=== PATIENT | female | born 1935 | race Caucasian/White ===

== ENCOUNTER 2023-01-01 08:33 | Outpatient (REF) | payer OTHER, SELFPAY ==
[2023-01-01 09:06] LABS: INR 1.21 (0.91-1.10)
== END 2023-01-01 08:34 | disposition home or self-care (01) ==
LOC: NPINS 08:33
PROVIDERS: PCP Nurse Practitioner Gerontology; Visit Provider Nurse Practitioner Gerontology
DX: I48.91 Unspecified atrial fibrillation (principal); Z86.73 Personal history of transient ischemic attack (TIA), and cerebral infarction without residual deficits
CPT/HCPCS: 85610

== ENCOUNTER 2023-01-08 12:33 | Outpatient (RCR) | payer MEDICARE, SELFPAY ==
[2023-01-08 13:09] LABS: INR 1.07 (0.91-1.10); Prothrombin Time 14.5 Seconds
[2023-01-10 15:40] LABS: INR 1.22 (0.91-1.10); Prothrombin Time 16.1 Seconds
[2023-01-15 11:22] LABS: INR 2.26 (0.91-1.10); Prothrombin Time 26.1 Seconds
[2023-01-17 09:27] LABS: INR 2.45 (0.91-1.10); Prothrombin Time 27.8 Seconds
[2023-01-22 14:43] LABS: INR 2.14 (0.91-1.10)
[2023-01-29 11:14] LABS: Basophils Absolute Auto 0.02 K/uL (0.00-0.30); Basophils Percent Auto 0.3 % (0.0-3.0); Eosinophils Absolute Auto 0.09 K/uL (0.00-0.50); Eosinophils Percent Auto 1.4 % (0.0-7.0); Hematocrit 36.3 % (33.0-51.0); Immature Granulocytes Abs Auto 0.03 K/uL (0.00-0.30); Immature Granulocytes Pct Auto 0.5 %; Lymphocytes Percent Auto 5.8 % (20-44); Mean Corpuscular HGB Conc 33 gm/dL (32-36); Mean Corpuscular Hemoglobin 32 pg (26-34); Mean Corpuscular Volume 96 fL (80-100); Monocytes Percent Auto 3.2 % (0.0-11.0); Neutrophils Percent Auto 88.8 % (42.0-72.0); Platelet Count* 229 K/uL (140-440); RDW Coefficient of Variation % 12.8 % (11.5-15.5); Red Blood Count 3.79 m/uL (4.00-5.20); White Blood Count* 6.25 K/uL (4.50-11.00)
[2023-01-29 11:28] LABS: Chloride* 101 mmol/L (96-114); Potassium* 4.2 mmol/L (3.6-5.1); Sodium* 136 mmol/L (135-149)
[2023-01-29 11:30] LABS: Anion Gap 8 mEq/L (7-15); Carbon Dioxide* 27 mmol/L (20-32); Estimated Glomerular Filt Rate 55 ml/min
[2023-01-29 11:31] LABS: Blood Urea Nitrogen* 21 mg/dL (7-30); Glucose* 343 mg/dL (60-115); Slide Review Reflex No
[2023-01-29 11:43] LABS: Hemoglobin A1C* 9.07 % (0-5.6)
[2023-01-29 11:48] LABS: INR 1.49 (0.91-1.10); Prothrombin Time 18.9 Seconds
[2023-02-05 09:43] LABS: INR 1.25 (0.91-1.10); Prothrombin Time 16.4 Seconds
[2023-02-05 10:26] LABS: HIV 1/2/P24 Combo Screen* Negative (Negative)
[2023-02-12 11:57] LABS: Basophils Absolute Auto 0.02 K/uL (0.00-0.30); Basophils Percent Auto 0.4 % (0.0-3.0); Eosinophils Absolute Auto 0.05 K/uL (0.00-0.50); Hematocrit 39.2 % (33.0-51.0); Hemoglobin* 12.9 gm/dL (12.0-16.0); Immature Granulocytes Abs Auto 0.02 K/uL (0.00-0.30); Immature Granulocytes Pct Auto 0.4 %; Lymphocytes Percent Auto 9.7 % (20-44); Mean Corpuscular HGB Conc 33 gm/dL (32-36); Mean Corpuscular Hemoglobin 32 pg (26-34); Mean Corpuscular Volume 98 fL (80-100); Monocytes Percent Auto 3.9 % (0.0-11.0); Neutrophils Percent Auto 84.6 % (42.0-72.0); Platelet Count* 192 K/uL (140-440); RDW Coefficient of Variation % 13.6 % (11.5-15.5); Red Blood Count 4.02 m/uL (4.00-5.20); Slide Review Reflex No; White Blood Count* 5.15 K/uL (4.50-11.00)
[2023-02-12 12:17] LABS: Albumin* 3.5 g/dL (3.3-5.0); Chloride* 104 mmol/L (96-114); Potassium* 4.2 mmol/L (3.6-5.1); Sodium* 138 mmol/L (135-149)
[2023-02-12 12:18] LABS: INR 1.35 (0.91-1.10); Prothrombin Time 17.5 Seconds
[2023-02-12 12:19] LABS: Creatinine* 1.1 mg/dL (0.5-1.5); Estimated Glomerular Filt Rate 49 ml/min
[2023-02-12 12:20] LABS: Alanine Aminotransferase* 32 U/L (4-35); Alkaline Phosphatase* 99 U/L (40-150); Anion Gap 8 mEq/L (7-15); Aspartate Amino Transferase* 33 U/L (12-35); Bilirubin Direct* 0.2 mg/dL (0.0-0.5); Bilirubin Total* 0.8 mg/dL (0.1-1.5); Blood Urea Nitrogen* 16 mg/dL (7-30); Carbon Dioxide* 26 mmol/L (20-32); Glucose* 242 mg/dL (60-115); Total Protein* 6.5 g/dL (6.0-8.3)
[2023-02-12 12:21] LABS: Calcium* 9.5 mg/dL (8.4-10.6)
[2023-02-19 11:41] LABS: Prothrombin Time 20.9 Seconds
[2023-02-26 10:55] LABS: INR 1.54 (0.91-1.10); Prothrombin Time 19.3 Seconds
[2023-02-26 11:57] LABS: Hepatitis B Surface Antibody* Negative (Negative)
[2023-03-05 09:27] LABS: INR 2.01 (0.91-1.10); Prothrombin Time 23.9 Seconds
== END 2024-01-02 16:07 | disposition home or self-care (01) ==
LOC: LAB 12:33
PROVIDERS: PCP Nurse Practitioner Gerontology; Visit Provider Nurse Practitioner Gerontology
DX: C34.12 Malignant neoplasm of upper lobe, left bronchus or lung (principal); E11.22 Type 2 diabetes mellitus with diabetic chronic kidney disease; I48.91 Unspecified atrial fibrillation; Z86.73 Personal history of transient ischemic attack (TIA), and cerebral infarction without residual deficits; Z11.4 Encounter for screening for human immunodeficiency virus [HIV]
CPT/HCPCS: 36415; 80048; 80076; 83036; 85025; 85610; 86703; 86706

== ENCOUNTER 2023-03-19 10:45 | Outpatient (REF) | payer MEDICARE, SELFPAY ==
[2023-03-19 11:25] LABS: Basophils Absolute Auto 0.02 K/uL (0.00-0.30); Basophils Percent Auto 0.4 % (0.0-3.0); Eosinophils Absolute Auto 0.14 K/uL (0.00-0.50); Eosinophils Percent Auto 2.6 % (0.0-7.0); Hemoglobin* 12.6 gm/dL (12.0-16.0); Immature Granulocytes Abs Auto 0.02 K/uL (0.00-0.30); Immature Granulocytes Pct Auto 0.4 %; Lymphocytes Percent Auto 10.2 % (20-44); Mean Corpuscular HGB Conc 33 gm/dL (32-36); Mean Corpuscular Hemoglobin 33 pg (26-34); Mean Corpuscular Volume 98 fL (80-100); Monocytes Percent Auto 3.9 % (0.0-11.0); Neutrophils Percent Auto 82.5 % (42.0-72.0); Platelet Count* 150 K/uL (140-440); RDW Coefficient of Variation % 13.5 % (11.5-15.5); Red Blood Count 3.87 m/uL (4.00-5.20); White Blood Count* 5.38 K/uL (4.50-11.00)
[2023-03-19 11:29] LABS: Slide Review Reflex No
[2023-03-19 11:49] LABS: Albumin* 3.2 g/dL (3.3-5.0); Chloride* 102 mmol/L (96-114)
[2023-03-19 11:50] LABS: Potassium* 3.2 mmol/L (3.6-5.1); Sodium* 138 mmol/L (135-149)
[2023-03-19 11:52] LABS: Anion Gap 9 mEq/L (7-15); Bilirubin Total* 0.7 mg/dL (0.1-1.5); Carbon Dioxide* 27 mmol/L (20-32); Creatinine* 0.9 mg/dL (0.5-1.5); Estimated Glomerular Filt Rate 63 ml/min; Total Protein* 5.7 g/dL (6.0-8.3)
[2023-03-19 11:53] LABS: Alanine Aminotransferase* 19 U/L (4-35); Alkaline Phosphatase* 102 U/L (40-150); Aspartate Amino Transferase* 47 U/L (12-35); Blood Urea Nitrogen* 14 mg/dL (7-30); Calcium* 8.5 mg/dL (8.4-10.6); Glucose* 237 mg/dL (60-115)
== END 2023-03-19 10:46 | disposition home or self-care (01) ==
LOC: NPINS 10:45
PROVIDERS: PCP Nurse Practitioner Gerontology; Visit Provider Internal Medicine Hematology & Oncology
DX: C34.12 Malignant neoplasm of upper lobe, left bronchus or lung (principal)
CPT/HCPCS: 80048; 80076; 85025

== ENCOUNTER 2023-05-21 09:02 | Outpatient (REF) | payer MEDICARE, SELFPAY ==
[2023-05-21 09:24] LABS: Basophils Absolute Auto 0.02 K/uL (0.00-0.30); Basophils Percent Auto 0.4 % (0.0-3.0); Eosinophils Absolute Auto 0.13 K/uL (0.00-0.50); Eosinophils Percent Auto 2.7 % (0.0-7.0); Hematocrit 38.9 % (33.0-51.0); Hemoglobin* 12.8 gm/dL (12.0-16.0); Lymphocytes Percent Auto 13.1 % (20-44); Mean Corpuscular HGB Conc 33 gm/dL (32-36); Mean Corpuscular Hemoglobin 33 pg (26-34); Mean Corpuscular Volume 101 fL (80-100); Monocytes Percent Auto 5.8 % (0.0-11.0); Platelet Count* 158 K/uL (140-440); RDW Coefficient of Variation % 13.2 % (11.5-15.5); Red Blood Count 3.87 m/uL (4.00-5.20); White Blood Count* 4.81 K/uL (4.50-11.00)
[2023-05-21 09:29] LABS: Slide Review Reflex No
[2023-05-21 09:32] LABS: Chloride* 106 mmol/L (96-114); Potassium* 3.5 mmol/L (3.6-5.1); Sodium* 139 mmol/L (135-149)
[2023-05-21 09:34] LABS: Amylase* 47 U/L (18-89)
[2023-05-21 09:35] LABS: Alkaline Phosphatase* 100 U/L (40-150); Anion Gap 5 mEq/L (7-15); Aspartate Amino Transferase* 17 U/L (12-35); Bilirubin Direct* 0.1 mg/dL (0.0-0.5); Bilirubin Total* 0.4 mg/dL (0.1-1.5); Blood Urea Nitrogen* 13 mg/dL (7-30); Calcium* 8.5 mg/dL (8.4-10.6); Carbon Dioxide* 28 mmol/L (20-32); Estimated Glomerular Filt Rate 55 ml/min; Glucose* 123 mg/dL (60-115); Lipase* 85 U/L (23-300); Total Protein* 5.5 g/dL (6.0-8.3)
[2023-05-21 09:36] LABS: Alanine Aminotransferase* 14 U/L (4-35)
== END 2023-05-21 09:03 | disposition home or self-care (01) ==
LOC: NPINS 09:02
PROVIDERS: PCP Nurse Practitioner Gerontology; Visit Provider Nurse Practitioner Family
DX: C34.12 Malignant neoplasm of upper lobe, left bronchus or lung (principal)
CPT/HCPCS: 80048; 80076; 82150; 83690; 85025

== ENCOUNTER 2023-06-21 14:52 | Outpatient (REF) | payer MEDICARE, SELFPAY ==
[2023-06-21 15:08] LABS: Basophils Absolute Auto 0.01 K/uL (0.00-0.30); Basophils Percent Auto 0.1 % (0.0-3.0); Eosinophils Absolute Auto 0.13 K/uL (0.00-0.50); Eosinophils Percent Auto 1.8 % (0.0-7.0); Hematocrit 41.2 % (33.0-51.0); Hemoglobin* 13.5 gm/dL (12.0-16.0); Immature Granulocytes Abs Auto 0.01 K/uL (0.00-0.30); Immature Granulocytes Pct Auto 0.1 %; Lymphocytes Percent Auto 8.7 % (20-44); Mean Corpuscular HGB Conc 33 gm/dL (32-36); Mean Corpuscular Hemoglobin 33 pg (26-34); Mean Corpuscular Volume 101 fL (80-100); Monocytes Percent Auto 3.8 % (0.0-11.0); Neutrophils Percent Auto 85.5 % (42.0-72.0); Platelet Count* 210 K/uL (140-440); RDW Coefficient of Variation % 12.7 % (11.5-15.5); White Blood Count* 7.34 K/uL (4.50-11.00)
[2023-06-21 15:21] LABS: Slide Review Reflex No
[2023-06-21 17:15] LABS: Chloride* 105 mmol/L (96-114)
[2023-06-21 17:16] LABS: Potassium* 3.4 mmol/L (3.6-5.1); Sodium* 139 mmol/L (135-149)
[2023-06-21 17:18] LABS: Alkaline Phosphatase* 133 U/L (40-150); Amylase* 57 U/L (18-89); Anion Gap 6 mEq/L (7-15); Aspartate Amino Transferase* 21 U/L (12-35); Bilirubin Direct* 0.2 mg/dL (0.0-0.5); Bilirubin Total* 0.5 mg/dL (0.1-1.5); Blood Urea Nitrogen* 14 mg/dL (7-30); Carbon Dioxide* 28 mmol/L (20-32); Creatinine* 1.1 mg/dL (0.5-1.5); Estimated Glomerular Filt Rate 49 ml/min; Glucose* 137 mg/dL (60-115); Total Protein* 5.6 g/dL (6.0-8.3)
[2023-06-21 17:19] LABS: Alanine Aminotransferase* 13 U/L (4-35); Calcium* 8.4 mg/dL (8.4-10.6); Lipase* 183 U/L (23-300)
== END 2023-06-21 14:53 | disposition home or self-care (01) ==
LOC: NPINS 14:52
PROVIDERS: Visit Provider Nurse Practitioner Family
DX: C34.12 Malignant neoplasm of upper lobe, left bronchus or lung (principal)
CPT/HCPCS: 80048; 80076; 82150; 83690; 85025

== ENCOUNTER 2023-07-09 15:27 | Inpatient (IN) | payer MEDICARE, SELFPAY ==
[2023-07-09] VITALS (33 sets, daily range): BP systolic 50–123; BP diastolic 38–84; PULSE 85–105; RESP 20; TEMP 36.4–36.6; O2SAT 80–94; BMI 30.1; BMI 33.3
--- NOTE | 2023-07-09 15:46 | ED_ITS ---
HPI - Chest Pain General Time Seen by Provider: 15:46 Date Seen: 07/09/23 Chief Complaint: Chest Pain Stated Complaint: Possible heart attack Time Seen by Provider: 07/09/23 15:46 Source: patient, family, RN notes reviewed and old records reviewed Mode of arrival: ambulatory Limitations: no limitations History of Present Illness HPI narrative: Paulette is an 87-year-old female with history of lung cancer currently a patient [facility], history of pleural effusion according to her son who is brought to the [place] [facility] with chest pain and vomiting. Pauletet was picked up by her son for an eye appointment earlier this morning. When [facility] it was noted that her blood pressure was only 80 systolic. They were advised to follow up but coming back from the [facility] Paulette began experiencing chest pain. This was nonradiating but associated with nausea and vomiting. She has not had any diarrhea. She has no past history of heart problems. She denies abdominal pain. No diarrhea at this time. Son does note exposure to COVID positive resident at [facility] who eats lunch with Paulette. Paulette has not been coughing. Her son states that she has been fatigued over the last 2 days. Paulette has had chronic lower extremity edema secondary to a chemotherapy medication. We are awaiting the fax copy of med Paulette is currently taking. Related Data Home Medications Medication Instructions Recorded Confirmed amlodipine 5 mg tablet 5 mg PO DAILY 07/09/23 07/09/23 apixaban 2.5 mg tablet (Eliquis) 2.5 mg PO BID 07/09/23 07/09/23 atenolol 25 mg tablet 25 mg PO DAILY 07/09/23 07/09/23 capmatinib 200 mg tablet (Tabrecta) 400 mg PO BID 07/09/23 07/09/23 citalopram 20 mg tablet 20 mg PO DAILY 07/09/23 07/09/23 donepezil 10 mg tablet 10 mg PO DAILY 07/09/23 07/09/23 empagliflozin 25 mg-linagliptin 5 1 tab PO DAILY 07/09/23 07/09/23 mg tablet (Glyxambi) glipizide 10 mg tablet mg PO 07/09/23 glipizide 5 mg tablet 5 mg PO BID 07/09/23 07/09/23 insulin glargine 100 unit/mL (3 15 unit subcut DAILY 07/09/23 07/09/23 mL) subcutaneous pen (Lantus Solostar U-100 Insulin) latanoprost 0.005 % eye drops drp ophthalmic (eye) 07/09/23 nystatin 100,000 unit/gram topical 1 applic topical BID-TID 07/09/23 07/09/23 powder (Nystop) omeprazole 20 mg capsule,delayed 20 mg PO DAILY 07/09/23 07/09/23 release potassium chloride 20 mEq 20 meq PO DAILY 07/09/23 07/09/23 tablet,extended release quetiapine 25 mg tablet 12.5 mg PO HS 07/09/23 07/09/23 simvastatin 20 mg tablet 20 mg PO QPM 07/09/23 07/09/23 triamterene 37.5 1 tab PO DAILY 07/09/23 07/09/23 mg-hydrochlorothiazide 25 mg tablet Allergies Allergy/AdvReac Type Severity Reaction Status Date / Time bee pollen Allergy Severe Verified 07/09/23 15:32 lisinopril Allergy Severe Swelling Verified 07/09/23 20:03 of Lip/Tongue/Throat pneumococcal vaccine Allergy Severe Verified 07/09/23 20:03 sotalol Allergy Severe Hypotension Verified 07/09/23 20:03 hydrochlorothiazide Allergy Verified 07/09/23 20:03 [From Dyazide] niacin Allergy Verified 07/09/23 20:03 triamterene [From Dyazide] Allergy Verified 07/09/23 20:03 venlafaxine Allergy Verified 07/09/23 20:03 Review of Systems Status of ROS Reports: 10 or more systems reviewed and unremarkable except as noted in History and below [facility] Medical History (Updated 07/09/23 @ 19:22 by Brian Theodore MD) Diabetes mellitus ?E11.9 - Type 2 diabetes mellitus without complications (ICD-10) Hypoxic respiratory failure ?J96.91 - Respiratory failure, unspecified with hypoxia (ICD-10) Non-STEMI (non-ST elevated myocardial infarction) ?I21.4 - Non-ST elevation (NSTEMI) myocardial infarction (ICD-10) Chronic anticoagulation ?Z79.01 - extermination supervisor (current) use of anticoagulants (ICD-10) Large pleural effusion ?J90 - Pleural effusion, not elsewhere classified (ICD-10) Hyperlipidemia ?E78.5 - Hyperlipidemia, unspecified (ICD-10) Hypertension ?I10 - Essential (primary) hypertension (ICD-10) Stroke ?I63.9 - Cerebral infarction, unspecified (ICD-10) Stage 3 chronic kidney disease ?N18.30 - Chronic kidney disease, stage 3 unspecified (ICD-10) Sensorineural hearing loss ?H90.5 - Unspecified sensorineural hearing loss (ICD-10) Chronic venous insufficiency ?I87.2 - Venous insufficiency (chronic) (peripheral) (ICD-10) Ankylosing spondylitis ?M45.9 - Ankylosing spondylitis of unspecified sites in spine (ICD-10) Obesity ?E66.9 - Obesity, unspecified (ICD-10) Dementia ?F03.90 - Unspecified dementia, unspecified severity, without behavioral disturbance, psychotic disturbance, mood disturbance, and anxiety (ICD-10) Depression ?F32.A - Depression, unspecified (ICD-10) Atrial fibrillation ?I48.91 - Unspecified atrial fibrillation (ICD-10) Non-small cell lung cancer ?C34.90 - Malignant neoplasm of unspecified part of unspecified bronchus or lung (ICD-10) Surgical History (Updated 07/09/23 @ 19:13 by Brian Theodore MD) History of colonoscopy ?Z98.890 - Other specified postprocedural states (ICD-10) History of lung biopsy ?Z98.890 - Other specified postprocedural states (ICD-10) History of section ?Z98.891 - History of uterine scar from previous surgery (ICD-10) History of appendectomy ?Z90.49 - Acquired absence of other specified parts of digestive tract (ICD- 10) Social History (Updated 07/09/23 @ 19:15 by Brian Theodore MD) Narrative: She lives at [facility]. is also in [facility]. Son, Wai Shukla, is healthcare power of consumer attorney. Code status is DNR DNI. Former cigarette smoker, quit in 1997. Rare alcohol use What is your current living situation?: I presently have a place to live Problems where you live: no known problems Problems where you live details: N/A In the past 12 months, utilities in danger of being shut off: no In past 12 months, lack of transportation kept you from medical appts, meetings, work, or getting things needed for daily living: no In the past 12 mos, have been you worried that your food would run out before you had money to buy more?: never true In the past 12 mos, the food you bought just didn't last and you didn't have money to buy more?: never true Smoking Status: Former smoker Do you use any of these nicotine containing products: None How often do you have a drink containing alcohol: never AUDIT-C Alcohol total score: 0 Non-prescribed substance use: denies use Caffeine: No How often does anyone, including family, friends and others, physically hurt you : never How often does anyone, including family, friends and others, insult or talk down to you: never How often does anyone, including family, friends and others, threaten you with harm: never How often does anyone, including family, friends and others, scream or curse at you: never service: No Exam Narrative Exam Narrative: Paulette is vomiting at this time. She is otherwise mentating normally and answering questions appropriately. She is somewhat pale in appearance however she does stop vomiting. Her EOM is full. Her heart is with regular rate and rhythm. Lungs are with decreased breath sounds in both bases. Abdomen is soft nontender. Lower extremities show peripheral edema approximately 2+ with her compression stockings in place. She is moving all extremities. Const Vital Signs, click to edit/add: Vital Signs - 24 hr 07/09/23 15:37 07/09/23 15:42 07/09/23 15:44 Temperature 97.9 F Pulse Rate 87 86 Pulse Rate [Pulse Oximeter] 85 Respiratory Rate 20 Blood Pressure 104/69 Blood Pressure [Right Upper Arm] 80/53 L Pulse Oximetry 91 83 L 87 L Oxygen Delivery Method Room Air Oxygen Flow Rate 07/09/23 15:45 07/09/23 15:47 07/09/23 15:52 Temperature Pulse Rate 88 90 91 Pulse Rate [Pulse Oximeter] Respiratory Rate Blood Pressure 101/73 100/38 L Blood Pressure [Right Upper Arm] Pulse Oximetry 85 L 90 87 L Oxygen Delivery Method Oxygen Flow Rate 07/09/23 15:55 07/09/23 15:57 07/09/23 16:00 Temperature Pulse Rate 105 H 87 Pulse Rate [Pulse Oximeter] Respiratory Rate Blood Pressure 103/72 Blood Pressure [Right Upper Arm] Pulse Oximetry 82 L 93 88 Oxygen Delivery Method OxyMask Oxygen Flow Rate 10 07/09/23 16:01 07/09/23 16:01 07/09/23 16:07 Temperature Pulse Rate 91 91 88 Pulse Rate [Pulse Oximeter] Respiratory Rate Blood Pressure 115/84 115/84 107/73 Blood Pressure [Right Upper Arm] Pulse Oximetry 90 90 92 Oxygen Delivery Method Oxygen Flow Rate 07/09/23 16:08 07/09/23 16:12 07/09/23 16:17 Temperature Pulse Rate 88 86 96 Pulse Rate [Pulse Oximeter] Respiratory Rate Blood Pressure 116/73 119/63 Blood Pressure [Right Upper Arm] Pulse Oximetry 91 90 91 Oxygen Delivery Method Oxygen Flow Rate 07/09/23 16:22 07/09/23 16:24 07/09/23 16:26 Temperature Pulse Rate 102 H 97 94 Pulse Rate [Pulse Oximeter] Respiratory Rate Blood Pressure 78/54 L 50/38 L 110/78 Blood Pressure [Right Upper Arm] Pulse Oximetry 90 93 80 L Oxygen Delivery Method Oxygen Flow Rate 07/09/23 16:27 07/09/23 16:28 07/09/23 16:30 Temperature Pulse Rate 94 101 H 98 Pulse Rate [Pulse Oximeter] Respiratory Rate Blood Pressure 123/77 Blood Pressure [Right Upper Arm] Pulse Oximetry 84 L 83 L 92 Oxygen Delivery Method Oxygen Flow Rate 07/09/23 16:32 07/09/23 16:37 07/09/23 16:38 Temperature Pulse Rate 102 H 90 92 Pulse Rate [Pulse Oximeter] Respiratory Rate Blood Pressure 106/77 119/77 Blood Pressure [Right Upper Arm] Pulse Oximetry 94 92 92 Oxygen Delivery Method Oxygen Flow Rate 07/09/23 17:00 07/09/23 17:01 07/09/23 17:30 Temperature Pulse Rate 89 97 85 Pulse Rate [Pulse Oximeter] Respiratory Rate Blood Pressure 115/78 Blood Pressure [Right Upper Arm] Pulse Oximetry 93 92 92 Oxygen Delivery Method Oxygen Flow Rate 07/09/23 17:32 07/09/23 17:32 07/09/23 17:33 Temperature Pulse Rate 91 91 89 Pulse Rate [Pulse Oximeter] Respiratory Rate Blood Pressure 115/66 115/66 Blood Pressure [Right Upper Arm] Pulse Oximetry 92 92 92 Oxygen Delivery Method Oxygen Flow Rate 07/09/23 18:00 07/09/23 18:02 Temperature Pulse Rate 89 86 Pulse Rate [Pulse Oximeter] Respiratory Rate Blood Pressure 116/76 Blood Pressure [Right Upper Arm] Pulse Oximetry 88 90 Oxygen Delivery Method Oxygen Flow Rate Documenting provider has reviewed patient's vital signs: yes Course Course ED Course: At this time differential diagnosis includes but is not limited to acute coronary syndrome, pneumonia, or respiratory viral infection, gastroenteritis, biliary colic, esophageal spasm with GERD. Will place IV, give 4 mg IV Zofran. The chest x-ray, CBC, comprehensive panel, to CRP, EKG EKG, troponin. Reevaluation(s) Reevaluation #1: I was called back into the room is Paulette was hypotensive and tachycardic. She was in Trendelenburg and was receiving fluids. I had a discussion with patient's son who is power of consumer attorney about his mom. At this time she is very ill. I do talk to him about starting pressors, transferring to [facility] and my questions regarding the likelihood of going to the photofinishing laboratory worker given his mom's current medical condition and lung cancer. He states that she has always been firmly a DNR DNI and he would like to continue that. I did state that I would speak to Cardiology to ask them if there would be any further interventions that they would do. Patient did receive aspirin 300 CO as I was worried about her taking any oral medications. During our time discussing further interventions Paulette had a blood pressure that was much improved. O2 sats initially 85% improved with OxyMask as well. Reevaluation #2: I had the pleasure of speaking with Cardiology from [facility]. At this time they are wondering if the troponin bump actually came from a hypotensive episode. Very interested in a 2nd troponin which we have ordered. Suggest continued monitoring of serial troponins if there is no change with the 2nd troponin. Back in be done here at [facility] or patient could be transfer to [facility]. If there is an increase in troponin or patient has ongoing chest pain they do feel that they could provide intervention with photofinishing laboratory worker and stent placement. Second troponin is 0.24. Initial troponin 0.26. Minimal change and therefore I do speak to Mr. Shukla. I do offer transfer but states that at this point Paulette would not go to the photofinishing laboratory worker. I do offer transfer to [facility] but he states he would like his mom to remain here. Therefore we will continue to monitor [facility] serial troponins. There is a suggestion by Cardiology to transition to heparin as patient is on packs a band. Also suggesting echocardiogram. I do check and Paulette at this time has no chest pain. No further vomiting. She has received 1 L of normal saline and blood pressure 115 systolic and pulse in the 80 with no evidence of ectopy. Vital Signs Vital signs: Initial Vital Signs Temperature 97.9 F 07/09/23 15:37 Temperature Source Temporal Artery Scan 07/09/23 15:37 Pulse Rate 85 07/09/23 15:37 Pulse Rhythm Regular 07/09/23 15:37 Respiratory Rate 20 07/09/23 15:37 Blood Pressure 80/53 L 07/09/23 15:37 Blood Pressure Mean 62 L 07/09/23 15:37 Blood Pressure Position Sitting 07/09/23 15:37 Pulse Oximetry 91 07/09/23 15:37 Oxygen Delivery Method Room Air 07/09/23 15:37 Vital Signs Temperature 97.9 F 07/09/23 15:37 Pulse Rate 85 07/09/23 15:37 Respiratory Rate 20 07/09/23 15:37 Blood Pressure 80/53 L 07/09/23 15:37 Pulse Oximetry 91 07/09/23 15:37 Oxygen Delivery Method Room Air 07/09/23 15:37 Temperature 97.5 F L 07/09/23 19:13 Pulse Rate 95 07/09/23 19:13 Respiratory Rate 20 07/09/23 19:13 Blood Pressure 95/64 07/09/23 19:13 Pulse Oximetry 93 07/09/23 19:13 Oxygen Delivery Method Nasal Cannula 07/09/23 19:13 Oxygen Flow Rate 2 07/09/23 19:13 Medications Administered Medications: Generic Name Dose Route Start Last Admin Trade Name Freq PRN Reason Stop Dose Admin Insulin Aspart 0 unit 07/09/23 21:00 07/09/23 21:37 Insulin Aspart 100 Unit/Ml SUBCUT Not Given ACHS MARTA Protocol Latanoprost 1 drop 07/09/23 21:00 07/09/23 20:51 Latanoprost 0.005% Ophth EYE-BOTH Not Given HS [facility] Non-Formulary Medication 400 mg 07/09/23 21:00 02/06/24 21:35 Capmatinib [Tabrecta] PO Not Given BID MARTA Nystatin 1 applic 07/09/23 21:00 07/09/23 22:47 Nystatin Powder TOPICAL 1 applic TID MARTA Administration Quetiapine Fumarate 12.5 mg 07/09/23 21:00 07/09/23 20:21 Quetiapine 25 Mg Tablet PO 12.5 mg HS MARTA Administration Sodium Chloride 5 ml 07/09/23 21:00 07/09/23 20:21 Sodium Chloride 0.9 % (Flush) 10 Ml Syringe IVF 5 ml BID MARTA Administration Discontinued Medications Generic Name Dose Route Start Last Admin Trade Name Freq PRN Reason Stop Dose Admin Aspirin 300 mg 07/09/23 16:29 07/09/23 16:50 Aspirin 300 Mg Supp CO 07/09/23 16:30 300 mg ONCE ONE Administration Furosemide 20 mg 07/09/23 18:30 07/09/23 20:20 Furosemide 10 Mg/Ml Inj IVP 07/09/23 18:31 20 mg ONCE ONE Administration Sodium Chloride 1,000 mls @ 1,000 mls/hr 07/09/23 15:55 07/09/23 17:15 0.9 % Sodium Chloride 1000 Ml IV 07/09/23 16:54 Infused .Q1H MARTA Infusion Morphine Sulfate 4 mg 07/09/23 16:33 07/09/23 16:00 Morphine 4 Mg/Ml Inj IVP 07/09/23 16:34 4 mg ONCE ONE Administration Ondansetron HCl 4 mg 07/09/23 15:55 07/09/23 16:00 Ondansetron 2 Mg/Ml Inj IVP 07/09/23 15:56 4 mg ONCE ONE Administration Potassium Bicarbonate 50 meq 07/09/23 18:30 07/09/23 20:20 Potassium Bicarb 25 Meq Effervescent Tab PO 07/09/23 18:31 50 meq ONCE ONE Administration MDM - Chest Pain MDM Narrative Medical decision making narrative: 1. Elevated [id number] verses hypotensive cause. Paulette is now pain- free. Initially blood pressure was not acceptable for the use of nitroglycerin. Therefore we use morphine 4 mg. Approximately 30 minutes after use of morphine, patient's blood pressure dropped quite low and she was put in [place] with fluids. At this time discussion regarding DNR status was accomplished with son. Please see notes from hospital course for further information. Patient stabilized, received aspirin rectally. I did speak with Cardiology who does not suggest the use of heparin at this time as patient is on apixaban. Does suggest serial troponins, transfer for increasing troponins or chest pain. 2. Vomiting-resolved with Zofran. Patient initially hypotensive this morning. Hard to evaluate if vomiting is secondary to a non STEMI verses proceeding the troponin elevation. No diarrhea at this time. 3. Lung cancer-likely non-small cell adenocarcinoma. Patient initially was not responsive to radiation and thus she is on oral medication at this time. Specifically described cancer as being wrapped around left perihilar area. This does not appear to be impediment to potential stent placement according to Cardiology. 4. Disposition-admit to [facility] under the care of Dr. Richard Theodore. I did once again confirm with Paulette looney that she is DNR DNI but if she would have increasing pain, increasing cardiac enzymes he would consider transfer to [place] for official cardiac consultation and intervention. Medical Records Data Attestation: I reviewed the patient's medical records. Lab Data Attestation: I reviewed the patient's lab results. Labs: Lab Results 07/09/23 07/09/23 07/09/23 Range/Units 15:45 15:55 17:19 WBC 10.85 (4.50-11.00) K/uL RBC 4.43 (4.00-5.20) m/uL Hgb 14.5 (12.0-16.0) gm/dL Hct 44.3 (33.0-51.0) % MCV 100 (80-100) fL MCH 33 (26-34) pg MCHC 33 (32-36) gm/dL RDW Coeff of Rufina 13.0 (11.5-15.5) % Plt Count 224 (140-440) K/uL Neut % (Auto) 73.9 H (42.0-72.0) % Lymph % (Auto) 18.4 L (20-44) % Hidalgo % (Auto) 4.8 (0.0-11.0) % Eos % (Auto) 2.3 (0.0-7.0) % Baso % (Auto) 0.3 (0.0-3.0) % Neut # (Auto) 8.00 H (1.7-7.0) K/uL Lymph # (Auto) 2.00 (0.90-2.90) K/uL Hidalgo # (Auto) 0.50 (0.00-0.90) K/UL Eos # (Auto) 0.25 (0.00-0.50) K/uL Baso # (Auto) 0.03 (0.00-0.30) K/uL Abs Immat Gran (auto) 0.03 (0.00-0.30) K/uL Imm/Tot Granulo (auto) 0.3 % Sodium 138 136 (135-149) mmol/L Potassium 3.3 L 3.4 L (3.6-5.1) mmol/L Chloride 106 108 (96-114) mmol/L Carbon Dioxide 22 22 (20-32) mmol/L Anion Gap 10 6 L (7-15) mEq/L BUN 14 14 (7-30) mg/dL Creatinine 1.0 1.0 (0.5-1.5) mg/dL Estimated Creat Clear 37.01 37.01 Estimated GFR 55 55 ml/min Glucose 205 H 197 H (60-115) mg/dL Calcium 8.4 7.8 L (8.4-10.6) mg/dL Magnesium 2.2 (1.5-2.6) mg/dL Total Bilirubin 0.4 (0.1-1.5) mg/dL AST 25 (12-35) U/L ALT 12 (4-35) U/L Alkaline Phosphatase 122 (40-150) U/L C-Reactive Protein 2.0 H (0.5-1.0) mg/dL Total Protein 5.8 L (6.0-8.3) g/dL Albumin 3.1 L (3.3-5.0) g/dL Lipase 164 (23-300) U/L TSH 12.200 H (0.270-4.20) uIU/mL SARS-CoV-2 (PCR) Negative SARS-CoV-2 (Negative) Influenza Type A (PCR) Negative PCR FLU A (Negative) Influenza Type B (PCR) Negative PCR FLU B (Negative) RSV (PCR) Negative PCR RSV (Negative) POC Troponin I 0.26 H 0.24 H (0.01-0.04) ng/ml Imaging Data Chest x-ray: Attestation: I have reviewed the pertinent imaging results. My impression: Left-sided pleural effusion. Radiologist's impression: Cardiomegaly, accentuated by portable technique. Focal airspace consolidation in the left upper to mid lung zone, concerning for an acute infectious/inflammatory process. Suspected large left-sided pleural effusion. No pneumothorax. The right lung is clear. No displaced fractures. ECG Data Attestation: I personally reviewed and interpreted this ECG as follows: ECG interpretation date: 07/09/23 Interpretation: EKG by my read shows atrial fibrillation rate controlled at 88. There is a right bundle-branch block. Left posterior fascicular block. I do not note any acute ST or T-wave changes. Unfortunately I do not have previous EKGs for comparison. Critical Care Time Critical Care Time Critical Care Time: Yes (45) Attestation: The patient required my highest level preparedness to intervene emergently and I personally spent this critical care time directly and personally managing the patient. This critical care time included: Obtaining a history; Examining the patient; Pulse oximetry; Ordering and reviewing of studies; Arranging urgent treatment with development of a management plan; Evaluation of patients response to treatment; Frequent reassessment discussions with other providers. This critical care time was performed to assess and manage the high probability of imminent life-threatening deterioration that could result in multiorgan failure. It was exclusive of separate billable procedures and treating other patients and teaching time. Total Critical Care Time in Minutes: 60 Discharge Plan Discharge Clinical Impression: Elevated troponin Lung cancer Qualifiers: Laterality: left Lung location: hilum of lung Qualified Code(s): C34.02 - Malignant neoplasm of left main bronchus Patient Disposition: Admitted As Observation Condition: Improved
[2023-07-09 15:54] LABS: Basophils Absolute Auto 0.03 K/uL (0.00-0.30); Basophils Percent Auto 0.3 % (0.0-3.0); Eosinophils Absolute Auto 0.25 K/uL (0.00-0.50); Eosinophils Percent Auto 2.3 % (0.0-7.0); Hematocrit 44.3 % (33.0-51.0); Hemoglobin* 14.5 gm/dL (12.0-16.0); Immature Granulocytes Abs Auto 0.03 K/uL (0.00-0.30); Immature Granulocytes Pct Auto 0.3 %; Lymphocytes Percent Auto 18.4 % (20-44); Mean Corpuscular HGB Conc 33 gm/dL (32-36); Mean Corpuscular Hemoglobin 33 pg (26-34); Mean Corpuscular Volume 100 fL (80-100); Monocytes Percent Auto 4.8 % (0.0-11.0); Neutrophils Percent Auto 73.9 % (42.0-72.0); Platelet Count* 224 K/uL (140-440); Red Blood Count 4.43 m/uL (4.00-5.20); White Blood Count* 10.85 K/uL (4.50-11.00)
--- NOTE | 2023-07-09 15:55 | CRLHL7_ITS ---
For Patients: As a result of the Century Cures Act, medical imaging exams and procedure reports are released immediately into your electronic medical record. You may view this report before your referring provider. If you have questions, please contact your health care provider. INDICATION: Chest pain. TECHNIQUE: Chest 1 views. COMPARISON: Chest radiograph on July 07, 2020 FINDINGS/IMPRESSION: Cardiomegaly, accentuated by portable technique. Focal airspace consolidation in the left upper to mid lung zone, concerning for an acute infectious/inflammatory process. Suspected large left-sided pleural effusion. No pneumothorax. The right lung is clear. No displaced fractures. Dictated by Mann Mcclellan MD @ 07/09/2023 5:54:59 PM (Electronically Signed)
[2023-07-09] MEDS: ONDANSETRON 2 MG/ML inj 4 MG IVP (16:00)
[2023-07-09] MEDS: MORPHINE 4 MG/ML INJ IVP (16:00)
[2023-07-09 16:05] LABS: Troponin, Point-of-Care* 0.26 ng/ml (0.01-0.04)
[2023-07-09] MEDS: 0.9 % SODIUM CHLORIDE 1000 ml 1,000 ML IV (16:07)
[2023-07-09 16:08] LABS: Slide Review Reflex No
[2023-07-09 16:23] LABS: Chloride* 106 mmol/L (96-114); Sodium* 138 mmol/L (135-149)
--- NOTE | 2023-07-09 16:23 | ED.NURSE ---
Nurse noted continued low blood pressures and chest pain. MD notified.
[2023-07-09 16:24] LABS: Potassium* 3.3 mmol/L (3.6-5.1)
[2023-07-09 16:26] LABS: Anion Gap 10 mEq/L (7-15); Blood Urea Nitrogen* 14 mg/dL (7-30); Carbon Dioxide* 22 mmol/L (20-32); Est. Creatinine Clearance* 37.01; Estimated Glomerular Filt Rate 55 ml/min
[2023-07-09 16:27] LABS: Calcium* 8.4 mg/dL (8.4-10.6); Glucose* 205 mg/dL (60-115)
--- NOTE | 2023-07-09 16:29 | ED.NURSE ---
pt bp 50's systolic, placed in [place]. dr. richards talking to pt's son. pt dnr. o2 sats decreased to 80. pt placed on oximask at 10L.
[2023-07-09 16:48] LABS: PCR FLU A Negative PCR FLU A (Negative); PCR FLU B Negative PCR FLU B (Negative); PCR RSV Negative PCR RSV (Negative); SARS PCR* Negative SARS-CoV-2 (Negative)
[2023-07-09] MEDS: ASPIRIN 300 MG SUPP PR (16:50)
[2023-07-09 17:31] LABS: Troponin, Point-of-Care* 0.24 ng/ml (0.01-0.04)
--- NOTE | 2023-07-09 17:43 | ED.NURSE ---
pt given ice chips. states feeling better, o2 decreased to 3L/NC. son, mackenzie at bedside.
[2023-07-09 17:52] LABS: Albumin* 3.1 g/dL (3.3-5.0); Chloride* 108 mmol/L (96-114)
[2023-07-09 17:53] LABS: Potassium* 3.4 mmol/L (3.6-5.1); Sodium* 136 mmol/L (135-149)
[2023-07-09 17:54] LABS: Est. Creatinine Clearance* 37.01; Estimated Glomerular Filt Rate 55 ml/min
[2023-07-09 17:55] LABS: Alanine Aminotransferase* 12 U/L (4-35); Alkaline Phosphatase* 122 U/L (40-150); Anion Gap 6 mEq/L (7-15); Aspartate Amino Transferase* 25 U/L (12-35); Bilirubin Total* 0.4 mg/dL (0.1-1.5); Blood Urea Nitrogen* 14 mg/dL (7-30); Carbon Dioxide* 22 mmol/L (20-32); Glucose* 197 mg/dL (60-115); Total Protein* 5.8 g/dL (6.0-8.3)
[2023-07-09 17:56] LABS: Calcium* 7.8 mg/dL (8.4-10.6)
--- NOTE | 2023-07-09 18:20 | ED.NURSE ---
report given to ro. pt to transfer to med surg via cart.
--- NOTE | 2023-07-09 18:55 | PM.IMHP1 ---
Hospitalist- H&P: FRANCIE History of Present Illness Date Seen: 07/09/23 Chief complaint: Possible heart attack Narrative: Paulette Shukla is a 87 year old female with dementia, diabetes mellitus, atrial fibrillation, non-small cell lung cancer, hypertension, stroke admitted through the emergency department chest pain Patient lives at [facility]. She had an appointment for an injection in her eye in [place] today. After that appointment she went to lunch with her son. She ate half of a hamburger. On the way home, about 20 minutes after eating,, she had onset of heartburn and nausea. She then reported some mid low sternal discomfort and some shortness of breath. Because of this her son brought her to the emergency department. She tells me she has had episodes like this before. He unclear if previous episodes were related to meals or activity. Her symptoms have now been resolved. She has no previous history of coronary artery disease. About 2 years ago she was diagnosed with left upper lobe lung cancer. Biopsy was non-small cell cancer favoring adenocarcinoma. She received radiotherapy for this in September of 2021 and again in April 2022 after a recurrence in the left hilum encasing the left pulmonary artery. Now receiving immunotherapy with capmatinib. Apparently the tumor is been responsive to this and per oncology notes from 2 weeks ago it is stable on imaging. Three weeks ago she was evaluated for a pleural effusion on the left. She was treated with furosemide for a few days. Follow-up with Oncology led to decision to treat this as a infection with Levaquin. She has not had a fever. She does not have a history of heart failure. She does have chronic edema. Edema is also a side effect of her immunotherapy. She has atrial fibrillation and is on chronic anticoagulation with renally dosed apixaban. Review of Systems Narrative: Patient reports no recent fever. As noted above she has had occasional episodes of dyspnea chest pain and nausea. Due to dementia the head details of this were unable to be clearly defined. She reports she has been eating normally. No bowel or bladder problems. Chronic lower extremity edema but worse recently. [facility] Medical History (Updated 07/09/23 @ 19:22 by Brian Theodore MD) Diabetes mellitus ?E11.9 - Type 2 diabetes mellitus without complications (ICD-10) Hypoxic respiratory failure ?J96.91 - Respiratory failure, unspecified with hypoxia (ICD-10) Non-STEMI (non-ST elevated myocardial infarction) ?I21.4 - Non-ST elevation (NSTEMI) myocardial infarction (ICD-10) Chronic anticoagulation ?Z79.01 - long term care social worker (current) use of anticoagulants (ICD-10) Large pleural effusion ?J90 - Pleural effusion, not elsewhere classified (ICD-10) Hyperlipidemia ?E78.5 - Hyperlipidemia, unspecified (ICD-10) Hypertension ?I10 - Essential (primary) hypertension (ICD-10) Stroke ?I63.9 - Cerebral infarction, unspecified (ICD-10) Stage 3 chronic kidney disease ?N18.30 - Chronic kidney disease, stage 3 unspecified (ICD-10) Sensorineural hearing loss ?H90.5 - Unspecified sensorineural hearing loss (ICD-10) Chronic venous insufficiency ?I87.2 - Venous insufficiency (chronic) (peripheral) (ICD-10) Ankylosing spondylitis ?M45.9 - Ankylosing spondylitis of unspecified sites in spine (ICD-10) Obesity ?E66.9 - Obesity, unspecified (ICD-10) Dementia ?F03.90 - Unspecified dementia, unspecified severity, without behavioral disturbance, psychotic disturbance, mood disturbance, and anxiety (ICD-10) Depression ?F32.A - Depression, unspecified (ICD-10) Atrial fibrillation ?I48.91 - Unspecified atrial fibrillation (ICD-10) Non-small cell lung cancer ?C34.90 - Malignant neoplasm of unspecified part of unspecified bronchus or lung (ICD-10) Surgical History (Updated 07/09/23 @ 19:13 by Brian Theodore MD) History of colonoscopy ?Z98.890 - Other specified postprocedural states (ICD-10) History of lung biopsy ?Z98.890 - Other specified postprocedural states (ICD-10) History of section ?Z98.891 - History of uterine scar from previous surgery (ICD-10) History of appendectomy ?Z90.49 - Acquired absence of other specified parts of digestive tract (ICD-10) Social History (Updated 07/09/23 @ 19:15 by Brian Theodore MD) Narrative: She lives at [facility]. is also in [facility]. Son, Wai Shukla, is healthcare power of real estate associate attorney. Code status is DNR DNI. Former cigarette smoker, quit in 1997. Rare alcohol use Smoking Status: Former smoker How often do you have a drink containing alcohol: never AUDIT-C Alcohol total score: 0 Non-prescribed substance use: denies use Meds Home Medications and Allergies Home Medications Medication Instructions Recorded Confirmed Type amlodipine 5 mg tablet 5 mg PO DAILY 07/09/23 07/09/23 History apixaban 2.5 mg tablet (Eliquis) 2.5 mg PO BID 07/09/23 07/09/23 History atenolol 25 mg tablet 25 mg PO DAILY 07/09/23 07/09/23 History capmatinib 200 mg tablet (Tabrecta) 400 mg PO BID 07/09/23 07/09/23 History citalopram 20 mg tablet 20 mg PO DAILY 07/09/23 07/09/23 History donepezil 10 mg tablet 10 mg PO DAILY 07/09/23 07/09/23 History empagliflozin 25 mg-linagliptin 5 1 tab PO DAILY 07/09/23 07/09/23 History mg tablet (Glyxambi) glipizide 10 mg tablet mg PO 07/09/23 History glipizide 5 mg tablet 5 mg PO BID 07/09/23 07/09/23 History insulin glargine 100 unit/mL (3 15 unit subcut DAILY 07/09/23 07/09/23 History mL) subcutaneous pen (Lantus Solostar U-100 Insulin) latanoprost 0.005 % eye drops drp ophthalmic (eye) 07/09/23 History nystatin 100,000 unit/gram topical 1 applic topical BID-TID 07/09/23 07/09/23 History powder (Nystop) omeprazole 20 mg capsule,delayed 20 mg PO DAILY 07/09/23 07/09/23 History release potassium chloride 20 mEq 20 meq PO DAILY 07/09/23 07/09/23 History tablet,extended release quetiapine 25 mg tablet 12.5 mg PO HS 07/09/23 07/09/23 History simvastatin 20 mg tablet 20 mg PO QPM 07/09/23 07/09/23 History triamterene 37.5 1 tab PO DAILY 07/09/23 07/09/23 History mg-hydrochlorothiazide 25 mg tablet Allergies Allergy/AdvReac Type Severity Reaction Status Date / Time bee pollen Allergy Severe Verified 07/09/23 15:32 Exam Narrative: Exam Narrative: She is alert and appears in no distress. She answers simple questions appropriately but does not remember significant medical history which is obtained from her son. Head is without trauma. Pupils are mildly dilated.(eye doctor visit today). No facial asymmetry. Oropharynx is normal. Neck is supple without mass or adenopathy. No jugular venous distension. Respirations are clear to auscultation. Diminished breath sounds left lower lung ocampo. Cardiovascular: S1, S2, regular rate and rhythm. Distant heart sounds. Abdomen: Bowel sounds active. Abdomen is soft without tenderness or mass. External genitalia normal. She is approximately equal strength in all 4 extremities. She has some difficulty following commands for neurologic testing. She has mild edema in her hands. Mild edema in the skin of her back. 3+ edema in both legs and ankles. No rash Const: Vital Signs, click to edit/add: Vital Signs - 24 hr 07/09/23 15:37 07/09/23 15:42 07/09/23 15:44 Temperature 97.9 F Pulse Rate 87 86 Pulse Rate [Pulse Oximeter] 85 Respiratory Rate 20 Blood Pressure 104/69 Blood Pressure [Ri ght Upper Arm] 80/53 L Pulse Oximetry 91 83 L 87 L Oxygen Delivery Me thod Room Air Oxygen Flow Rate 07/09/23 15:45 07/09/23 15:47 07/09/23 15:52 Temperature Pulse Rate 88 90 91 Pulse Rate [Pulse Oximeter] Respiratory Rate Blood Pressure 101/73 100/38 L Blood Pressure [Ri ght Upper Arm] Pulse Oximetry 85 L 90 87 L Oxygen Delivery Me thod Oxygen Flow Rate 07/09/23 15:55 07/09/23 15:57 07/09/23 16:00 Temperature Pulse Rate 105 H 87 Pulse Rate [Pulse Oximeter] Respiratory Rate Blood Pressure 103/72 Blood Pressure [Ri ght Upper Arm] Pulse Oximetry 82 L 93 88 Oxygen Delivery Me thod OxyMask Oxygen Flow Rate 10 07/09/23 16:01 07/09/23 16:01 07/09/23 16:07 Temperature Pulse Rate 91 91 88 Pulse Rate [Pulse Oximeter] Respiratory Rate Blood Pressure 115/84 115/84 107/73 Blood Pressure [Ri ght Upper Arm] Pulse Oximetry 90 90 92 Oxygen Delivery Me thod Oxygen Flow Rate 07/09/23 16:08 07/09/23 16:12 07/09/23 16:17 Temperature Pulse Rate 88 86 96 Pulse Rate [Pulse Oximeter] Respiratory Rate Blood Pressure 116/73 119/63 Blood Pressure [Ri ght Upper Arm] Pulse Oximetry 91 90 91 Oxygen Delivery Me thod Oxygen Flow Rate 07/09/23 16:22 07/09/23 16:24 07/09/23 16:26 Temperature Pulse Rate 102 H 97 94 Pulse Rate [Pulse Oximeter] Respiratory Rate Blood Pressure 78/54 L 50/38 L 110/78 Blood Pressure [Ri ght Upper Arm] Pulse Oximetry 90 93 80 L Oxygen Delivery Me thod Oxygen Flow Rate 07/09/23 16:27 07/09/23 16:28 07/09/23 16:30 Temperature Pulse Rate 94 101 H 98 Pulse Rate [Pulse Oximeter] Respiratory Rate Blood Pressure 123/77 Blood Pressure [Ri ght Upper Arm] Pulse Oximetry 84 L 83 L 92 Oxygen Delivery Me thod Oxygen Flow Rate 07/09/23 16:32 07/09/23 16:37 07/09/23 16:38 Temperature Pulse Rate 102 H 90 92 Pulse Rate [Pulse Oximeter] Respiratory Rate Blood Pressure 106/77 119/77 Blood Pressure [Ri ght Upper Arm] Pulse Oximetry 94 92 92 Oxygen Delivery Me thod Oxygen Flow Rate 07/09/23 17:00 07/09/23 17:01 07/09/23 17:30 Temperature Pulse Rate 89 97 85 Pulse Rate [Pulse Oximeter] Respiratory Rate Blood Pressure 115/78 Blood Pressure [Ri ght Upper Arm] Pulse Oximetry 93 92 92 Oxygen Delivery Me thod Oxygen Flow Rate 07/09/23 17:32 07/09/23 17:32 07/09/23 17:33 Temperature Pulse Rate 91 91 89 Pulse Rate [Pulse Oximeter] Respiratory Rate Blood Pressure 115/66 115/66 Blood Pressure [Ri ght Upper Arm] Pulse Oximetry 92 92 92 Oxygen Delivery Me thod Oxygen Flow Rate 07/09/23 18:00 07/09/23 18:02 Temperature Pulse Rate 89 86 Pulse Rate [Pulse Oximeter] Respiratory Rate Blood Pressure 116/76 Blood Pressure [Ri ght Upper Arm] Pulse Oximetry 88 90 Oxygen Delivery Me thod Oxygen Flow Rate Documenting provider has reviewed patient's vital signs: yes Hospitalist - H&P: Result Labs Labs: Short CBC 07/09/23 Range/Units 15:45 WBC 10.85 (4.50-11.00) K/uL Hgb 14.5 (12.0-16.0) gm/dL Hct 44.3 (33.0-51.0) % Plt Count 224 (140-440) K/uL BMP 07/09/23 07/09/23 15:45 17:19 Sodium 138 136 Potassium 3.3 L 3.4 L Chloride 106 108 Carbon Dioxide 22 22 BUN 14 14 Creatinine 1.0 1.0 Glucose 205 H 197 H Calcium 8.4 7.8 L Liver Function 07/09/23 Range/Units 17:19 Total Bilirubin 0.4 (0.1-1.5) mg/dL AST 25 (12-35) U/L ALT 12 (4-35) U/L Alkaline Phosphatase 122 (40-150) U/L Albumin 3.1 L (3.3-5.0) g/dL Assessment and Plan Assessment and plan (1) Non-STEMI (non-ST elevated myocardial infarction): Problem comment: I consult at by phone. Conservative management strategy for now. If significant deterioration consider transfer. Hold apixaban and switch to unfractionated heparin if consideration for intervention. Status: Acute (2) Large pleural effusion: Problem comment: This has not been evaluated. With left sided lung cancer it is probably malignant but could also be heart failure with her generalized edema. Consider therapeutic and diagnostic thoracentesis. Status: Acute (3) Hypoxic respiratory failure: Problem comment: Multiple potential causes including large left pleural effusion, lung cancer with involvement of left pulmonary artery and atelectasis, heart failure, possible COPD, possible sleep apnea. Status: Acute (4) Chronic anticoagulation: Problem comment: Hold apixaban for now. Monitor troponin and electrocardiogram and non STEMI signs and symptoms. If getting worse switched to heparin and transfer for intervention Status: Acute (5) Non-small cell lung cancer: Problem comment: Diagnosed August 2021. Left upper lobe. Stage I A to. Favor adenocarcinoma. Status post radio therapy September of 2021. Recurrence of cancer in the left hilum around the left pulmonary artery in March 2010 2. Repeat radiation in April to May 2022 now on immunotherapy with capmatinib Status: Acute (6) Atrial fibrillation: Problem comment: On apixaban and rate controlled Status: Acute (7) Dementia: Status: Acute (8) Stage 3 chronic kidney disease: Status: Acute (9) Diabetes mellitus: Problem comment: Continue home insulin and sliding scale. Status: Acute Plan Patient is admitted to the hospital for management of non STEMI, hypoxic respiratory failure, large pleural effusion, multiple chronic medical problems. Total time spent today is 85 minutes, 60 minutes in coordination of care discussing with patient and son and other providers ongoing evaluation management of non STEMI and hypoxia
[2023-07-09] MEDS: POTASSIUM BICARB 25 MEQ EFFERVESCENT TAB 50 MEQ PO (20:20)
[2023-07-09] MEDS: FUROSEMIDE 10 MG/ML inj 20 MG IVP (20:20)
[2023-07-09] MEDS: SODIUM CHLORIDE 0.9 % (FLUSH) 10 ML SYRINGE 5 ML IVF (20:21)
[2023-07-09] MEDS: QUETIAPINE 25 MG TABLET 12.5 MG PO (20:21)
[2023-07-09 20:31] LABS: Lipase* 164 U/L (23-300); Magnesium* 2.2 mg/dL (1.5-2.6)
[2023-07-09] MEDS: NYSTATIN POWDER 1 APPLIC TOPICAL (22:47)
--- NOTE | 2023-07-09 23:46 | PC.NURSE ---
End of Shift: Patient admitted to 257. Pleasant and cooperative. Alert to self and situation. Up to bathroom with 1 assist, walker and gait belt. Denies pain. Tele showing A-fib. Declined anything to eat. Voided x1 and bladder scanned for 70 mL. 2-4L NC to keep sats greater than 90%.
[2023-07-10] VITALS (41 sets, daily range): BP systolic 74–129; BP diastolic 53–90; PULSE 86–118; RESP 16–24; TEMP 35.9–36.9; O2SAT 86–92
--- NOTE | 2023-07-10 06:30 | CRLHL7_ITS ---
For Patients: As a result of the Century Cures Act, medical imaging exams and procedure reports are released immediately into your electronic medical record. You may view this report before your referring provider. If you have questions, please contact your health care provider. INDICATION: Postprandial abdominal pain associated with nausea and vomiting. TECHNIQUE: Ultrasound abdomen limited. Sonographic images of the right upper quadrant were obtained using hair-scale and color Doppler images. COMPARISON: Chest radiograph 07/09/2023. FINDINGS: Liver: Normal in size and echotexture. Incidental homogeneous echogenic focus in the subcapsular aspect of the posterior left hepatic lobe measuring 0.8 cm greatest dimension. No posterior acoustic features. The finding is consistent with a typical hemangioma and no further workup or ongoing imaging surveillance is indicated for incidental findings such as this, according to published management guidelines. No suspicious masses. No intrahepatic biliary dilatation. Gallbladder: No stones or sludge. Nonspecific circumferential uniform gallbladder wall thickening. There are numerous differential diagnostic considerations for isolated gallbladder wall thickening including acalculous cholecystitis (typically in debilitated patients) and secondary to underlying liver disease and congestive heart failure, among many other considerations. Common bile duct: 4 mm. Pancreas: Unremarkable where visualized. Right kidney: Normal in size. Normal echotexture and cortex. No suspicious masses, stones, or hydronephrosis. Incidental benign exophytic 1.5 cm right renal cortical cyst. Vasculature: Proximal abdominal aorta and IVC are unremarkable. Other: Right pleural effusion. Small volume ascites in Morison`s pouch. Yesterday`s chest radiograph demonstrated a large left pleural effusion. IMPRESSION: No evidence of cholelithiasis or biliary ductal dilatation. Nonspecific gallbladder wall thickening associated with bilateral pleural effusions and small volume ascites suggesting secondary gallbladder wall thickening due to congestive heart failure. Clinical correlation is recommended. Differential diagnostic considerations discussed above. Dictated by Tavo Brice MD @ 07/10/2023 8:09:00 AM (Electronically Signed)
--- NOTE | 2023-07-10 06:42 | PC.NURSE ---
[id number]: Patient pleasant and cooperative. Dementia, alert to self. A1/walker. O2 87-90% on 4 Lt NC. NPO @0000. Denies pain. Denies N/V.
[2023-07-10 06:50] LABS: Basophils Percent Auto 0.1 % (0.0-3.0); Eosinophils Percent Auto 0.2 % (0.0-7.0); Hematocrit 42.8 % (33.0-51.0); Immature Granulocytes Pct Auto 0.2 %; Lymphocytes Percent Auto 9.1 % (20-44); Mean Corpuscular HGB Conc 33 gm/dL (32-36); Mean Corpuscular Hemoglobin 33 pg (26-34); Mean Corpuscular Volume 100 fL (80-100); Monocytes Percent Auto 4.9 % (0.0-11.0); Neutrophils Percent Auto 85.5 % (42.0-72.0); Platelet Count* 224 K/uL (140-440); RDW Coefficient of Variation % 13.3 % (11.5-15.5); Red Blood Count 4.27 m/uL (4.00-5.20)
[2023-07-10 07:06] LABS: Slide Review Reflex No
[2023-07-10 07:14] LABS: Chloride* 103 mmol/L (96-114); Potassium* 3.6 mmol/L (3.6-5.1); Sodium* 136 mmol/L (135-149)
[2023-07-10 07:16] LABS: Est. Creatinine Clearance* 35.52; Estimated Glomerular Filt Rate 55 ml/min
[2023-07-10 07:17] LABS: Anion Gap 12 mEq/L (7-15); Blood Urea Nitrogen* 15 mg/dL (7-30); Calcium* 8.3 mg/dL (8.4-10.6); Carbon Dioxide* 21 mmol/L (20-32); Glucose* 186 mg/dL (60-115)
[2023-07-10 07:21] LABS: C Reactive Protein* 2.3 mg/dL (0.5-1.0)
--- NOTE | 2023-07-10 07:58 | CRLHL7_ITS ---
For Patients: As a result of the Century Cures Act, medical imaging exams and procedure reports are released immediately into your electronic medical record. You may view this report before your referring provider. If you have questions, please contact your health care provider. INDICATION: Acute coronary syndrome, NSTEMI. TECHNIQUE: Chest 1 views. COMPARISON: Radiographs from 07/09/2023. CT from 07/07/2020. FINDINGS: Unchanged enlargement of the cardiac silhouette. Atherosclerotic aortic calcifications. Lungs are hypoinflated. Slight decrease in moderate left pleural effusion with improved left lung aeration. Increased interstitial opacities throughout the right lung. No pneumothorax. No acute osseous abnormality. IMPRESSION: 1. Decrease in left pleural effusion, now moderate. Improved left lung aeration with persistent dense basilar airspace consolidation. 2. Similar cardiomegaly. 3. Increased interstitial opacities throughout the right lung may represent interstitial pulmonary edema. Dictated by Michelle Harley MD @ 07/10/2023 8:24:32 AM (Electronically Signed)
[2023-07-10 08:15] LABS: INR 1.08 (0.91-1.10); Prothrombin Time 14.7 Seconds
[2023-07-10 08:16] LABS: Partial Thromboplastin Time* 32 Seconds (23-33)
[2023-07-10] MEDS: HEPARIN 25,000 UNIT/500 ML BAG 0.4 UNIT IV (08:30)
[2023-07-10] MEDS: HEPARIN 5,000 UNIT/0.5 ML INJ 4000 UNIT IVP (08:31)
[2023-07-10] MEDS: INSULIN ASPART 100 UNIT/ML SUBCUT ×3 (09:13→17:44)
[2023-07-10] MEDS: METOPROLOL TARTRATE 1 MG/ML inj 2.5 MG IVP (09:14)
--- NOTE | 2023-07-10 09:35 | REH.OT ---
OT/PT orders received for evaluation. Pt. not meidcally appropriate for therapies at this time per MD order.
--- NOTE | 2023-07-10 09:38 | REH.OT ---
OT: Orders received, chart reviewed and per interdisciplinary team rounds, not medically appropriate for OT.
[2023-07-10] MEDS: DONEPEZIL 10 MG TABLET PO (09:40)
[2023-07-10] MEDS: OMEPRAZOLE 20 MG CAPSULE DR PO (09:40)
[2023-07-10] MEDS: CITALOPRAM HYDROBROMIDE 20 MG TABLET PO (09:40)
[2023-07-10] MEDS: SODIUM CHLORIDE 0.9 % (FLUSH) 10 ML SYRINGE 5 ML IVF ×3 (09:41→21:44)
--- NOTE | 2023-07-10 10:34 | REH.PT ---
Per Dr. Machado from rounds, hold PT eval. Not medically appropriate at this time.
[2023-07-10 11:07] LABS: Magnesium* 2.4 mg/dL (1.5-2.6)
[2023-07-10] MEDS: ASPIRIN 81 MG TAB.CHEW PO (11:11)
[2023-07-10] MEDS: ATORVASTATIN CALCIUM 40 MG TABLET 80 MG PO (11:11)
[2023-07-10] MEDS: TICAGRELOR 90 MG TABLET 180 MG PO (11:11)
[2023-07-10] MEDS: CLOPIDOGREL 75 MG TABLET 300 MG PO (11:12)
[2023-07-10] MEDS: PANTOPRAZOLE SODIUM 40 MG INJ IVP (11:19)
--- NOTE | 2023-07-10 12:27 | CRLHL7_ITS ---
For Patients: As a result of the Century Cures Act, medical imaging exams and procedure reports are released immediately into your electronic medical record. You may view this report before your referring provider. If you have questions, please contact your health care provider. Indication: PICC placement Technique: Chest 1 view Comparison: July 10, 2023 Findings/Impression: 1. A right-sided PICC tip terminates at the level of the cavoatrial junction. No pneumothorax. 2. Moderate to large left pleural effusion. 3. Patchy opacities throughout the right lung concerning for infection. 4. Normal cardiac size. Dictated by Lisette Ortiz MD @ 07/10/2023 11:30:22 PM (Electronically Signed)
--- NOTE | 2023-07-10 14:06 | PC.NURSE ---
End of Shift Note: Patient was moved to CCU this am after an increase in her trop. She was started on a heparin gtt. Have asked her several times today if she is having any pain and she has denied pain this whole shift. She has been up to the commode and voided x1. She has refused to eat only took a few bites for breakfast otherwise has taken in cranberry juice. Her O2 sats started to drop into the low 80's after she received a 250cc bolus. She does have an audible wheeze after the bolus. She was started on high flow and her sats now have been 88-92% on 20L and 60%. Son and have been at bedside since about mid morning. Did explain to the son that Dr. Machado has ordered a PICC line. Explain to him what a PICC line is and that we will need someone to consent for this procedure. PICC stat will be arrive at around 4 pm and asked if he would be here or if we could call to get his permission for this procedure. Son will most likely be here for the procedure. She does currently have 2 IV access but we may need to start her on a norepinephrine gtt. See vital sign documentation for her b/p's and pulse rate. Will continue to monitor until the next shift arrives.
--- NOTE | 2023-07-10 14:13 | P.IMPN_ITS ---
Progress Note: A&P Assessment and plan (1) Non-STEMI (non-ST elevated myocardial infarction): Problem details: [facility] consult by phone again 07/10, Dr. Silva. we discussed development of ACS/NSTEMI we discussed pro/con of transfer and benefit. will medical manage here with cardiology phone support -heparinized, DAPT, BB, high dose statin, manage AFIB with addition of digoxin, blood pressure support with pressor. obtain central line access. highflow oxygen with RT to assist. manage resp compromise and other end organ dysfunction. Status: Acute (2) Cardiogenic shock: Problem details: -balance fluid overload with poor cardiac output/reserve -EF 20-25% -MAP hovering at 65 -manage end organ dysfunction (currently pulmonary with resp compromise) -d/w with cardiology and given advanced age, health care directives, and lack of ischemic chest pain and ST elevation EKG changes - medically manage is appropriate. Status: Acute (3) Acute coronary syndrome: Problem details: as described above. Status: Acute (4) Atrial fibrillation: Problem details: Holding apixaban in light of her heparin drip, start Brilinta and aspirin. Rate controlled with IV metoprolol in small IV doses given her blood pressure as well as loading digoxin. Goal is for rate less than 100. Status: Acute (5) Hypoxic respiratory failure: Problem details: Multiple potential causes including large left pleural effusion, lung cancer with involvement of left pulmonary artery and atelectasis, heart failure, possible COPD, possible sleep apnea. Status: Acute (6) Diabetes mellitus: Problem details: Continue home insulin and sliding scale. Status: Acute (7) Non-small cell lung cancer: Problem details: Diagnosed August 2021. Left upper lobe. Stage I A to. Favor adenocarcinoma. Status post radio therapy September of 2021. Recurrence of cancer in the left hilum around the left pulmonary artery in March 2010 2. Repeat radiation in April to May 2022 now on immunotherapy with capmatinib Status: Acute (8) Dementia: Problem details: Moderate Status: Acute (9) Stage 3 chronic kidney disease: Status: Acute (10) Large pleural effusion: Problem details: This has not been evaluated. With left sided lung cancer it is probably malignant but could also be heart failure with her generalized edema. Consider therapeutic and diagnostic thoracentesis. -single dose of IV Lasix on 07/09 was somewhat effective. Repeated 07/10. Status: Acute (11) Chronic anticoagulation: Problem details: Hold apixaban. Heparin ACS protocol P2Y12 inhibitor - brilinta loading dose 180mg with 81mg aspirin. 60mg bid with aspirin 81mg starting 07/09 Status: Acute Subjective Date Seen: 07/10/23 Interval history: Daily Progress Note - Hospital #: 2 CC: ACS/NSTEMI + cardiogenic shock OVERNIGHT UPDATES FROM STAFF & MED, LAB, IMAGING UPDATES -quiet night. morning troponin elevated to 11. ECG now shows inferior lead ischemia with ST seg changes. no ST elevation. -blood pressures have been soft and borderline MAPs of 60-70. -patient is pleasantly confused, reporting no chest pain -no grimace or dyspnea or pre syncope noted -echo today shows Echo shows EF of 26%, severely reduced global systolic function. Global hypokinesis with severe focal hypokinesis involving the septum, inferior an inferolateral danielson and apex. Global systolic RV function is moderately reduced. Mild to moderate valvular dysfunction. Bilateral pleural effusions. Objective: comfortable. awake, asking for a drink, her . confused to place and time. Vitals: see above Lungs: Clear. Cardiac: S1S2. no harsh murmur moderate edema, 1-2+ Disposition/Potential discharge - Likely to return to previous living situation. Today I spent 50minutes seeing the patient, reviewing [facility] and EPIC notes/diagnostics, discussing the care plan with our care time that includes social work, PT/OT, pharmacy, RT, long term and documenting my impressions and plan in the medical record. Prolonged Physician Services [id number] ([facility]) in conjunction with: [id number] (subsequent visit; 50 mins + 15 mins prolonged services = 65 mins total) I then went back for 15 mins to discuss the findings of my conversation with cardiology; echo results. critical care 60 mins. Exam Const: Vital Signs, click to edit/add: Vital Signs - 24 hr 07/09/23 15:37 07/09/23 15:42 07/09/23 15:44 Temperature 97.9 F Pulse Rate 87 86 Pulse Rate [Left P ulse Oximeter] Pulse Rate [Pulse Oximeter] 85 Respiratory Rate 20 Blood Pressure 104/69 Blood Pressure [Ri ght Arm] Blood Pressure [Ri ght Upper Arm] 80/53 L Pulse Oximetry 91 83 L 87 L Oxygen Delivery Me thod Room Air Oxygen Flow Rate Fraction of Inspir ed Oxygen 07/09/23 15:45 07/09/23 15:47 07/09/23 15:52 Temperature Pulse Rate 88 90 91 Pulse Rate [Left P ulse Oximeter] Pulse Rate [Pulse Oximeter] Respiratory Rate Blood Pressure 101/73 100/38 L Blood Pressure [Ri ght Arm] Blood Pressure [Ri ght Upper Arm] Pulse Oximetry 85 L 90 87 L Oxygen Delivery Me thod Oxygen Flow Rate Fraction of Inspir ed Oxygen 07/09/23 15:55 07/09/23 15:57 07/09/23 16:00 Temperature Pulse Rate 105 H 87 Pulse Rate [Left P ulse Oximeter] Pulse Rate [Pulse Oximeter] Respiratory Rate Blood Pressure 103/72 Blood Pressure [Ri ght Arm] Blood Pressure [Ri ght Upper Arm] Pulse Oximetry 82 L 93 88 Oxygen Delivery Me thod OxyMask Oxygen Flow Rate 10 Fraction of Inspir ed Oxygen 07/09/23 16:01 07/09/23 16:01 07/09/23 16:07 Temperature Pulse Rate 91 91 88 Pulse Rate [Left P ulse Oximeter] Pulse Rate [Pulse Oximeter] Respiratory Rate Blood Pressure 115/84 115/84 107/73 Blood Pressure [Ri ght Arm] Blood Pressure [Ri ght Upper Arm] Pulse Oximetry 90 90 92 Oxygen Delivery Me thod Oxygen Flow Rate Fraction of Inspir ed Oxygen 07/09/23 16:08 07/09/23 16:12 07/09/23 16:17 Temperature Pulse Rate 88 86 96 Pulse Rate [Left P ulse Oximeter] Pulse Rate [Pulse Oximeter] Respiratory Rate Blood Pressure 116/73 119/63 Blood Pressure [Ri ght Arm] Blood Pressure [Ri ght Upper Arm] Pulse Oximetry 91 90 91 Oxygen Delivery Me thod Oxygen Flow Rate Fraction of Inspir ed Oxygen 07/09/23 16:22 07/09/23 16:24 07/09/23 16:26 Temperature Pulse Rate 102 H 97 94 Pulse Rate [Left P ulse Oximeter] Pulse Rate [Pulse Oximeter] Respiratory Rate Blood Pressure 78/54 L 50/38 L 110/78 Blood Pressure [Ri ght Arm] Blood Pressure [Ri ght Upper Arm] Pulse Oximetry 90 93 80 L Oxygen Delivery Me thod Oxygen Flow Rate Fraction of Inspir ed Oxygen 07/09/23 16:27 07/09/23 16:28 07/09/23 16:30 Temperature Pulse Rate 94 101 H 98 Pulse Rate [Left P ulse Oximeter] Pulse Rate [Pulse Oximeter] Respiratory Rate Blood Pressure 123/77 Blood Pressure [Ri ght Arm] Blood Pressure [Ri ght Upper Arm] Pulse Oximetry 84 L 83 L 92 Oxygen Delivery Me thod Oxygen Flow Rate Fraction of Inspir ed Oxygen 07/09/23 16:32 07/09/23 16:37 07/09/23 16:38 Temperature Pulse Rate 102 H 90 92 Pulse Rate [Left P ulse Oximeter] Pulse Rate [Pulse Oximeter] Respiratory Rate Blood Pressure 106/77 119/77 Blood Pressure [Ri ght Arm] Blood Pressure [Ri ght Upper Arm] Pulse Oximetry 94 92 92 Oxygen Delivery Me thod Oxygen Flow Rate Fraction of Inspir ed Oxygen 07/09/23 17:00 07/09/23 17:01 07/09/23 17:30 Temperature Pulse Rate 89 97 85 Pulse Rate [Left P ulse Oximeter] Pulse Rate [Pulse Oximeter] Respiratory Rate Blood Pressure 115/78 Blood Pressure [Ri ght Arm] Blood Pressure [Ri ght Upper Arm] Pulse Oximetry 93 92 92 Oxygen Delivery Me thod Oxygen Flow Rate Fraction of Inspir ed Oxygen 07/09/23 17:32 07/09/23 17:32 07/09/23 17:33 Temperature Pulse Rate 91 91 89 Pulse Rate [Left P ulse Oximeter] Pulse Rate [Pulse Oximeter] Respiratory Rate Blood Pressure 115/66 115/66 Blood Pressure [Ri ght Arm] Blood Pressure [Ri ght Upper Arm] Pulse Oximetry 92 92 92 Oxygen Delivery Me thod Oxygen Flow Rate Fraction of Inspir ed Oxygen 07/09/23 18:00 07/09/23 18:02 07/09/23 19:13 Temperature 97.5 F L Pulse Rate 89 86 Pulse Rate [Left P ulse Oximeter] 95 Pulse Rate [Pulse Oximeter] Respiratory Rate 20 Blood Pressure 116/76 Blood Pressure [Ri ght Arm] 95/64 Blood Pressure [Ri ght Upper Arm] Pulse Oximetry 88 90 93 Oxygen Delivery Me thod Nasal Cannula Oxygen Flow Rate 2 Fraction of Inspir ed Oxygen 07/09/23 19:13 07/09/23 22:30 07/09/23 23:00 Temperature 97.5 F L Pulse Rate 100 Pulse Rate [Left P ulse Oximeter] 95 Pulse Rate [Pulse Oximeter] Respiratory Rate 20 20 Blood Pressure Blood Pressure [Ri ght Arm] 91/49 L Blood Pressure [Ri ght Upper Arm] Pulse Oximetry 93 89 Oxygen Delivery Me thod Nasal Cannula Nasal Cannula Oxygen Flow Rate 2 4.0 Fraction of Inspir ed Oxygen 07/10/23 00:51 07/10/23 03:25 07/10/23 07:00 Temperature 97.3 F L 96.6 F L Pulse Rate Pulse Rate [Left P ulse Oximeter] 103 H 115 H Pulse Rate [Pulse Oximeter] Respiratory Rate 22 22 18 Blood Pressure Blood Pressure [Ri ght Arm] 89/67 L 112/90 H Blood Pressure [Ri ght Upper Arm] Pulse Oximetry 91 89 86 L Oxygen Delivery Me thod Nasal Cannula Nasal Cannula Nasal Cannula Oxygen Flow Rate 4.0 4.0 Fraction of Inspir ed Oxygen 07/10/23 07:00 07/10/23 07:00 07/10/23 07:00 Temperature Pulse Rate 118 H Pulse Rate [Left P ulse Oximeter] 114 H Pulse Rate [Pulse Oximeter] Respiratory Rate 18 Blood Pressure Blood Pressure [Ri ght Arm] Blood Pressure [Ri ght Upper Arm] Pulse Oximetry 91 Oxygen Delivery Me thod Nasal Cannula Oxygen Flow Rate 4 Fraction of Inspir ed Oxygen 07/10/23 10:45 07/10/23 11:00 07/10/23 11:15 Temperature 96.7 F L Pulse Rate Pulse Rate [Left P ulse Oximeter] 94 99 105 H Pulse Rate [Pulse Oximeter] Respiratory Rate 18 18 Blood Pressure Blood Pressure [Ri ght Arm] 89/59 L 76/59 L 74/59 L Blood Pressure [Ri ght Upper Arm] Pulse Oximetry 90 91 Oxygen Delivery Me thod Nasal Cannula Nasal Cannula Oxygen Flow Rate 4 4 Fraction of Inspir ed Oxygen 07/10/23 11:30 07/10/23 11:45 07/10/23 12:00 Temperature Pulse Rate Pulse Rate [Left P ulse Oximeter] 98 97 92 Pulse Rate [Pulse Oximeter] Respiratory Rate 20 20 Blood Pressure Blood Pressure [Ri ght Arm] 86/69 L 95/55 L 83/56 L Blood Pressure [Ri ght Upper Arm] Pulse Oximetry 89 89 Oxygen Delivery Me thod OxyMask OxyMask Oxygen Flow Rate 4 4 Fraction of Inspir ed Oxygen 07/10/23 12:15 07/10/23 12:30 07/10/23 12:45 Temperature Pulse Rate Pulse Rate [Left P ulse Oximeter] 90 97 87 Pulse Rate [Pulse Oximeter] Respiratory Rate 22 Blood Pressure Blood Pressure [Ri ght Arm] 91/58 L 92/70 85/53 L Blood Pressure [Ri ght Upper Arm] Pulse Oximetry 90 89 88 Oxygen Delivery Me thod OxyMask OxyMask OxyMask Oxygen Flow Rate 5 5 Fraction of Inspir ed Oxygen 07/10/23 13:00 07/10/23 13:13 07/10/23 13:45 Temperature Pulse Rate Pulse Rate [Left P ulse Oximeter] 91 86 101 H Pulse Rate [Pulse Oximeter] Respiratory Rate 16 20 Blood Pressure Blood Pressure [Ri ght Arm] 86/69 L 93/67 108/67 Blood Pressure [Ri ght Upper Arm] Pulse Oximetry 88 87 L 89 Oxygen Delivery Me thod OxyMask OxyMask High Flow Nasal Ca nnula Oxygen Flow Rate 5 5 15 Fraction of Inspir ed Oxygen 07/10/23 13:53 07/10/23 13:59 07/10/23 14:00 Temperature 97.6 F 97.6 F Pulse Rate Pulse Rate [Left P ulse Oximeter] 91 99 Pulse Rate [Pulse Oximeter] Respiratory Rate 20 18 Blood Pressure Blood Pressure [Ri ght Arm] 102/80 91/60 Blood Pressure [Ri ght Upper Arm] Pulse Oximetry 92 90 Oxygen Delivery Me thod High Flow Nasal Ca nnula High Flow Nasal Ca nnula Oxygen Flow Rate 20 20 20 Fraction of Inspir ed Oxygen 55 Labs Labs: Laboratory Results - last 24 hr 07/09/23 07/09/23 07/09/23 15:45 15:55 17:19 WBC 10.85 RBC 4.43 Hgb 14.5 Hct 44.3 MCV 100 MCH 33 MCHC 33 RDW Coeff of Rufina 13.0 Plt Count 224 Neut % (Auto) 73.9 H Lymph % (Auto) 18.4 L [place] % (Auto) 4.8 Eos % (Auto) 2.3 Baso % (Auto) 0.3 Neut # (Auto) 8.00 H Lymph # (Auto) 2.00 [place] # (Auto) 0.50 Eos # (Auto) 0.25 Baso # (Auto) 0.03 Abs Immat Gran (auto) 0.03 Imm/Tot Granulo (auto) 0.3 INR APTT Sodium 138 136 Potassium 3.3 L 3.4 L Chloride 106 108 Carbon Dioxide 22 22 Anion Gap 10 6 L BUN 14 14 Creatinine 1.0 1.0 Estimated Creat Clear 37.01 37.01 Estimated GFR 55 55 Glucose 205 H 197 H Calcium 8.4 7.8 L Magnesium 2.2 Total Bilirubin 0.4 AST 25 ALT 12 Alkaline Phosphatase 122 Troponin I C-Reactive Protein 2.0 H Total Protein 5.8 L Albumin 3.1 L Lipase 164 TSH 12.200 H SARS-CoV-2 (PCR) Negative SARS-CoV-2 Influenza Type A (PCR) Negative PCR FLU A Influenza Type B (PCR) Negative PCR FLU B RSV (PCR) Negative PCR RSV Lab Acknowledgement POC Troponin I 0.26 H 0.24 H 07/09/23 07/10/23 07/10/23 18:53 06:17 07:56 WBC 12.60 H RBC 4.27 Hgb 14.0 Hct 42.8 MCV 100 MCH 33 MCHC 33 RDW Coeff of Rufina 13.3 Plt Count 224 Neut % (Auto) 85.5 H Lymph % (Auto) 9.1 L [place] % (Auto) 4.9 Eos % (Auto) 0.2 Baso % (Auto) 0.1 Neut # (Auto) 10.80 H Lymph # (Auto) 1.10 [place] # (Auto) 0.60 Eos # (Auto) 0.00 Baso # (Auto) 0.00 Abs Immat Gran (auto) 0.00 Imm/Tot Granulo (auto) 0.2 INR 1.08 APTT 32 Sodium 136 Potassium 3.6 Chloride 103 Carbon Dioxide 21 Anion Gap 12 BUN 15 Creatinine 1.0 Estimated Creat Clear 35.52 Estimated GFR 55 Glucose 186 H Calcium 8.3 L Magnesium 2.4 Total Bilirubin AST ALT Alkaline Phosphatase Troponin I 11.50 H* C-Reactive Protein 2.3 H Total Protein Albumin Lipase TSH SARS-CoV-2 (PCR) Influenza Type A (PCR) Influenza Type B (PCR) RSV (PCR) Lab Acknowledgement Test Added Test Added POC Troponin I 07/10/23 07/10/23 09:17 10:51 WBC RBC Hgb Hct MCV MCH MCHC RDW Coeff of Rufina Plt Count Neut % (Auto) Lymph % (Auto) [place] % (Auto) Eos % (Auto) Baso % (Auto) Neut # (Auto) Lymph # (Auto) [place] # (Auto) Eos # (Auto) Baso # (Auto) Abs Immat Gran (auto) Imm/Tot Granulo (auto) INR APTT Sodium Potassium Chloride Carbon Dioxide Anion Gap BUN Creatinine Estimated Creat Clear Estimated GFR Glucose Calcium Magnesium Total Bilirubin AST ALT Alkaline Phosphatase Troponin I 11.10 H* C-Reactive Protein Total Protein Albumin Lipase TSH SARS-CoV-2 (PCR) Influenza Type A (PCR) Influenza Type B (PCR) RSV (PCR) Lab Acknowledgement Test Added POC Troponin I
[2023-07-10] MEDS: DIGOXIN 250 MCG/ML inj IV (14:24)
[2023-07-10 14:43] LABS: Partial Thromboplastin Time* 29 Seconds (23-33)
[2023-07-10] MEDS: HEPARIN 5,000 UNIT/0.5 ML INJ 4300 UNIT IVP (15:29)
[2023-07-10] MEDS: FUROSEMIDE 10 MG/ML inj 20 MG IVP ×2 (15:51→21:44)
--- NOTE | 2023-07-10 16:00 | CRLHL7_ITS ---
For Patients: As a result of the Century Cures Act, medical imaging exams and procedure reports are released immediately into your electronic medical record. You may view this report before your referring provider. If you have questions, please contact your health care provider. Indication: PICC PLACEMENT Technique: Grayscale images of the right basilic vein. IMPRESSION: Sonographic guidance for right arm PICC line placement. Dictated by Vic Epstein MD @ 07/11/2023 10:00:41 AM (Electronically Signed)
[2023-07-10 16:01] LABS: ABG PCO2 35 mmHG (35-45); Base Excess ABG -0.6 mmol/L (-3.0-3.0); HCO3 ABG 23 mmol/L (21-28); Oxygen Saturation ABG 87 % (92-100); TCO2 ABG 21 mmol/l (21-30); pH ABG 7.43 (7.35-7.45)
[2023-07-10 16:02] LABS: Carboxyhemoglobin* < 1.0 % (0.0-5.0)
[2023-07-10] MEDS: ALBUTEROL SULFATE 2.5 MG/3 ML VIAL.NEB NEB (17:44)
[2023-07-10] MEDS: DIGOXIN 125 MCG TABLET PO (20:22)
[2023-07-10] MEDS: QUETIAPINE 25 MG TABLET 12.5 MG PO (20:23)
[2023-07-10] MEDS: DIGOXIN 250 MCG TABLET 125 MCG PO (21:43)
[2023-07-10] MEDS: POTASSIUM BICARB 25 MEQ EFFERVESCENT TAB PO (21:44)
[2023-07-10] MEDS: NYSTATIN POWDER 1 APPLIC TOPICAL (21:45)
[2023-07-10 22:12] LABS: Partial Thromboplastin Time* 118 Seconds (23-33)
--- NOTE | 2023-07-10 23:51 | PC.NURSE ---
End of Shift: Patient pleasant and cooperative. Alert to self. Afebrile. Denies pain. Up to bathroom with 1-2 assist, walker and gait belt. Tele showing A-fib. Heparin drip as ordered. Frequent BP monitoring, see flow sheet. Updated MD throughout shift. Continues on HFNC at 20L 70% to keep sats greater than 90%. Lung sounds with wheezes and PRN neb given x1. Valenzuela placed. Tolerating regular diet with no nausea.
[2023-07-11] VITALS (21 sets, daily range): BP systolic 92–136; BP diastolic 57–83; PULSE 69–88; RESP 18–20; TEMP 35.9–36.7; O2SAT 89–96
[2023-07-11 05:36] LABS: HCO3 VBG 29 mmol/L (21-28); Lactate* 0.9 mmol/L (0.5-1.9); PCO2 VBG 43 mmHG (40-50); PO2 VBG 41.7 mmHG (25-47); pH VBG 7.445 (7.32-7.43)
[2023-07-11 05:37] LABS: Basophils Absolute Auto 0.01 K/uL (0.00-0.30); Basophils Percent Auto 0.1 % (0.0-3.0); Eosinophils Absolute Auto 0.03 K/uL (0.00-0.50); Eosinophils Percent Auto 0.3 % (0.0-7.0); Hematocrit 35.6 % (33.0-51.0); Hemoglobin* 11.9 gm/dL (12.0-16.0); Immature Granulocytes Abs Auto 0.02 K/uL (0.00-0.30); Immature Granulocytes Pct Auto 0.2 %; Lymphocytes Percent Auto 6.8 % (20-44); Mean Corpuscular HGB Conc 33 gm/dL (32-36); Mean Corpuscular Hemoglobin 33 pg (26-34); Mean Corpuscular Volume 99 fL (80-100); Monocytes Percent Auto 5.6 % (0.0-11.0); Platelet Count* 141 K/uL (140-440); RDW Coefficient of Variation % 13.3 % (11.5-15.5); White Blood Count* 8.87 K/uL (4.50-11.00)
[2023-07-11 05:38] LABS: Slide Review Reflex No
[2023-07-11 05:59] LABS: Chloride* 102 mmol/L (96-114); Sodium* 134 mmol/L (135-149)
[2023-07-11 06:00] LABS: Potassium* 3.2 mmol/L (3.6-5.1)
[2023-07-11 06:01] LABS: INR 1.21 (0.91-1.10); Prothrombin Time 16.1 Seconds
[2023-07-11 06:02] LABS: Est. Creatinine Clearance* 35.52; Estimated Glomerular Filt Rate 55 ml/min
[2023-07-11 06:03] LABS: Anion Gap 5 mEq/L (7-15); Blood Urea Nitrogen* 14 mg/dL (7-30); Calcium* 7.9 mg/dL (8.4-10.6); Carbon Dioxide* 27 mmol/L (20-32); Glucose* 94 mg/dL (60-115)
[2023-07-11 06:06] LABS: Partial Thromboplastin Time* 52 Seconds (23-33)
[2023-07-11 06:06] LABS: C Reactive Protein* 6.4 mg/dL (0.5-1.0)
--- NOTE | 2023-07-11 07:00 | CRLHL7_ITS ---
For Patients: As a result of the Century Cures Act, medical imaging exams and procedure reports are released immediately into your electronic medical record. You may view this report before your referring provider. If you have questions, please contact your health care provider. INDICATION: NSTEMI. (sic) TECHNIQUE: [facility] COMPARISON: 07/10/2023. FINDINGS: Patient positioning: The patient is not rotated. Adequate inspiration. Right PICC line with its tip overlying the mid superior vena cava at the level of the proximal right mainstem bronchus, above the cavoatrial junction. Heart and mediastinum: Normal transverse dimension of the cardiac silhouette. No significant abnormalities. Lungs and pleural spaces: Large left pleural effusion. Left lower lobe atelectasis and/or consolidation. Bones and soft tissues: No acute findings. IMPRESSION: Large left pleural effusion. Left lower lobe atelectasis and/or consolidation. No radiographic findings to indicate congestive heart failure. Right lung and pleural space are clear. Dictated by Tavo Brice MD @ 07/11/2023 8:12:05 AM (Electronically Signed)
--- NOTE | 2023-07-11 08:00 | PC.NURSE ---
SHIFT NOTE -: Pt pleasantly confused, alert and oriented to self, pt's daughter spent the night, supportive. Pt denies pain, CP, and N/V. Pt is SOB with exertion, denies SOB at rest. Remains on HFNC 20L/FiO2 70, oxygen saturations 89-92% overnight. Tele reads a-fib 80's-90's overnight. Pt turned and repositioned with a 2 assist. Valenzuela patent and draining. PICC patent. Heparin drip running per protocol.
[2023-07-11 08:21] LABS: Free T4 Free Thyroxine* 0.86 ng/dL (0.70-1.85)
--- NOTE | 2023-07-11 09:14 | P.IMPN_ITS ---
Progress Note: A&P Assessment and plan (1) Non-STEMI (non-ST elevated myocardial infarction): Problem details: [facility] consult by phone again 07/11, Dr. Walker [facility] consult by phone again 07/10, Dr. Silva. we discussed ongoing conservative care of her ACS - CHF - NSTEMI. in 2008 she had totally clean arteries. the global hypokinesis we see on current echo could be all afib/chf disease (i.e. not exclusively ischemic insult) thus: -heparin x 24hrs (48 total), stop DAPT 07/12 with heparin. resume eliquis only, no asprin. -rate control and myocardial support with digoxin and lose dose coreg (if BP allows) -continue BP support if needed; continue respiratory support with high flow oxygen (managing CHF, any infection and burden of malignancy/effusion) Status: Acute (2) Cardiogenic shock: Problem details: -balance fluid overload with poor cardiac output/reserve -EF 20-25% -MAP hovering at 65 -manage end organ dysfunction (currently pulmonary with resp compromise) -d/w with cardiology and given advanced age, health care directives, and lack of ischemic chest pain and ST elevation EKG changes - medically manage is appropriate. Status: Acute (3) Acute coronary syndrome: Problem details: as described above. Status: Acute (4) Atrial fibrillation: Problem details: Holding apixaban in light of her heparin drip, start Brilinta and aspirin - stop DAPT on 07/12 Rate controlled digoxin load and will add coreg if bp supports Goal is for rate less than 100. Status: Acute (5) Hypoxic respiratory failure: Problem details: Multiple potential causes including large left pleural effusion, lung cancer with involvement of left pulmonary artery and atelectasis, heart failure, infection, possible sleep apnea. Status: Acute (6) Non-small cell lung cancer: Problem details: Diagnosed August 2021. Left upper lobe. Stage I A to. Favor adenocarcinoma. Status post radio therapy September of 2021. Recurrence of cancer in the left hilum around the left pulmonary artery in March 2010 2. Repeat radiation in April to May 2022 now on immunotherapy with capmatinib Status: Acute (7) Chronic anticoagulation: Problem details: Hold apixaban. Heparin ACS protocol P2Y12 inhibitor - brilinta loading dose 180mg with 81mg aspirin. 60mg bid with aspirin 81mg starting 07/11 plan: 07/11 - eliquis only. no aspirin. no p2y12. no further heparin. Status: Acute (8) Infiltrate noted on imaging study: Problem details: CXR on 07/10 showed possible infiltrates - CXR 07/11 did not but there is a long- standing pleural effusion that is likely malignant and not infected but with so little reserve we will cover with abx for a short period of time. -No WBC, no cough, no fever. CRP is trending up. will check procalcitonin. Status: Acute (9) Large pleural effusion: Problem details: This has not been evaluated. With left sided lung cancer it is probably malignant but could also be heart failure with her generalized edema. Consider therapeutic and diagnostic thoracentesis. -single dose of IV Lasix on 07/09 was somewhat effective. Repeated 07/10. Status: Acute (10) Stage 3 chronic kidney disease: Status: Acute (11) Dementia: Problem details: Moderate Status: Acute (12) Diabetes mellitus: Problem details: Continue home insulin and sliding scale. Status: Acute Subjective Date Seen: 07/11/23 Interval history: Daily Progress Note - Hospital Medicine Day #: 3 CC: ACS/NSTEMI + cardiogenic shock OVERNIGHT UPDATES FROM STAFF & MED, LAB, IMAGING UPDATES -quiet night. no significant changes. diaphoretic and increasing work of breathing with moving from bed to bedside commode. -morning troponin elevated to 12.8 (11.5 --> 11.10 --> 12.80). ECG now shows inferior lead ischemia with ST seg changes. no ST elevation. No changes from yesterday, 07/10. -blood pressures have been soft and borderline MAPs of 65+ without pressors -CBC is stable. -on heparin with APTT at goal. INR this am 1.2 -pH is 7.46 this am with normal bicarb and no CO2 retention -electrolytes reviewed; mild hypokalemia (ordering IV bump) -kidney function is normal -CRP increasing 2.0-->2.3-->6.4 -elevated TSH with normal free t4 (sick euthyroid?) -neg quad resp screen on admission (pending strep pneumo and leg, neg MRSA) - no blood cultures have been drawn -pt has PICC line and standing order for norepi if needed to keep MAP >65 -tachycardia has resolved with digoxin -solis catheter placed overnight -patient is pleasantly confused, reporting no chest pain -no grimace or evidence of chest pain or discomfort. CXR this morning Large left pleural effusion. Left lower lobe atelectasis and/or consolidation. (not new) No radiographic findings to indicate congestive heart failure. Right lung and pleural space are clear. -echo 07/10 shows Echo shows EF of 26%, severely reduced global systolic function. Global hypokinesis with severe focal hypokinesis involving the septum, inferior an inferolateral danielson and apex. Global systolic RV function is moderately reduced. Mild to moderate valvular dysfunction. Bilateral pleural effusions. Objective: comfortable. seems to find comfort with son and daughter bedside. Vitals: see above Lungs: Clear. Cardiac: S1S2. no harsh murmur moderate edema, 1-2+ Disposition/Potential discharge - Likely to return to previous living situation. Today I spent 50minutes seeing the patient, reviewing [facility] and EPIC notes/diagnostics, discussing the care plan with our care time that includes social work, PT/OT, pharmacy, RT, half-way and documenting my impressions and plan in the medical record. Exam Const: Vital Signs, click to edit/add: Vital Signs - 24 hr 07/10/23 10:45 07/10/23 11:00 07/10/23 11:15 Temperature 96.7 F L Pulse Rate Pulse Rate [Left P ulse Oximeter] 94 99 105 H Respiratory Rate 18 18 Blood Pressure [Le ft Arm] Blood Pressure [Ri ght Arm] 89/59 L 76/59 L 74/59 L Pulse Oximetry 90 91 Oxygen Delivery Me thod Nasal Cannula Nasal Cannula Oxygen Flow Rate 4 4 Fraction of Inspir ed Oxygen 07/10/23 11:30 07/10/23 11:45 07/10/23 12:00 Temperature Pulse Rate Pulse Rate [Left P ulse Oximeter] 98 97 92 Respiratory Rate 20 20 Blood Pressure [Le ft Arm] Blood Pressure [Ri ght Arm] 86/69 L 95/55 L 83/56 L Pulse Oximetry 89 89 Oxygen Delivery Me thod OxyMask OxyMask Oxygen Flow Rate 4 4 Fraction of Inspir ed Oxygen 07/10/23 12:15 07/10/23 12:30 07/10/23 12:45 Temperature Pulse Rate Pulse Rate [Left P ulse Oximeter] 90 97 87 Respiratory Rate 22 Blood Pressure [Le ft Arm] Blood Pressure [Ri ght Arm] 91/58 L 92/70 85/53 L Pulse Oximetry 90 89 88 Oxygen Delivery Me thod OxyMask OxyMask OxyMask Oxygen Flow Rate 5 5 Fraction of Inspir ed Oxygen 07/10/23 13:00 07/10/23 13:13 07/10/23 13:45 Temperature Pulse Rate Pulse Rate [Left P ulse Oximeter] 91 86 101 H Respiratory Rate 16 20 Blood Pressure [Le ft Arm] Blood Pressure [Ri ght Arm] 86/69 L 93/67 108/67 Pulse Oximetry 88 87 L 89 Oxygen Delivery Me thod OxyMask OxyMask High Flow Nasal Ca nnula Oxygen Flow Rate 5 5 15 Fraction of Inspir ed Oxygen 07/10/23 13:53 07/10/23 13:59 07/10/23 14:00 Temperature 97.6 F 97.6 F Pulse Rate Pulse Rate [Left P ulse Oximeter] 91 99 Respiratory Rate 20 18 Blood Pressure [Le ft Arm] Blood Pressure [Ri ght Arm] 102/80 91/60 Pulse Oximetry 92 90 Oxygen Delivery Me thod High Flow Nasal Ca nnula High Flow Nasal Ca nnula Oxygen Flow Rate 20 20 20 Fraction of Inspir ed Oxygen 55 07/10/23 14:24 07/10/23 14:30 07/10/23 14:45 Temperature Pulse Rate 106 H Pulse Rate [Left P ulse Oximeter] 91 90 Respiratory Rate Blood Pressure [Le ft Arm] Blood Pressure [Ri ght Arm] 93/63 104/62 Pulse Oximetry 86 L 87 L Oxygen Delivery Me thod High Flow Nasal Ca nnula High Flow Nasal Ca nnula Oxygen Flow Rate 20 Fraction of Inspir ed Oxygen 07/10/23 15:00 07/10/23 15:00 07/10/23 15:00 Temperature Pulse Rate 95 Pulse Rate [Left P ulse Oximeter] 95 Respiratory Rate Blood Pressure [Le ft Arm] Blood Pressure [Ri ght Arm] 110/83 Pulse Oximetry 92 Oxygen Delivery Me thod High Flow Nasal Ca nnula Oxygen Flow Rate Fraction of Inspir ed Oxygen 07/10/23 15:00 07/10/23 15:30 07/10/23 15:45 Temperature 98.1 F Pulse Rate Pulse Rate [Left P ulse Oximeter] 94 98 96 Respiratory Rate 20 20 Blood Pressure [Le ft Arm] Blood Pressure [Ri ght Arm] 111/80 100/62 Pulse Oximetry 92 Oxygen Delivery Me thod High Flow Nasal Ca nnula Oxygen Flow Rate 20 Fraction of Inspir ed Oxygen 70 07/10/23 15:59 07/10/23 16:00 07/10/23 16:12 Temperature Pulse Rate Pulse Rate [Left P ulse Oximeter] 100 Respiratory Rate Blood Pressure [Le ft Arm] Blood Pressure [Ri ght Arm] 110/63 Pulse Oximetry Oxygen Delivery Me thod High Flow Nasal Ca nnula Oxygen Flow Rate Fraction of Inspir ed Oxygen 70 70 07/10/23 16:15 07/10/23 16:30 07/10/23 17:00 Temperature Pulse Rate Pulse Rate [Left P ulse Oximeter] 104 H 97 Respiratory Rate Blood Pressure [Le ft Arm] Blood Pressure [Ri ght Arm] 103/62 96/56 L Pulse Oximetry Oxygen Delivery Me thod Oxygen Flow Rate Fraction of Inspir ed Oxygen 70 07/10/23 17:00 07/10/23 17:15 07/10/23 17:30 Temperature Pulse Rate Pulse Rate [Left P ulse Oximeter] 94 103 H 99 Respiratory Rate Blood Pressure [Le ft Arm] Blood Pressure [Ri ght Arm] 129/62 92/56 L 98/62 Pulse Oximetry 92 Oxygen Delivery Me thod High Flow Nasal Ca nnula Oxygen Flow Rate 20 Fraction of Inspir ed Oxygen 70 07/10/23 17:45 07/10/23 18:00 07/10/23 18:30 Temperature Pulse Rate Pulse Rate [Left P ulse Oximeter] 94 92 112 H Respiratory Rate Blood Pressure [Le ft Arm] Blood Pressure [Ri ght Arm] 111/80 112/67 126/64 Pulse Oximetry Oxygen Delivery Me thod Oxygen Flow Rate Fraction of Inspir ed Oxygen 07/10/23 19:00 07/10/23 19:00 07/10/23 19:30 Temperature 98.5 F Pulse Rate Pulse Rate [Left P ulse Oximeter] 94 95 Respiratory Rate 24 Blood Pressure [Le ft Arm] Blood Pressure [Ri ght Arm] 111/76 104/67 Pulse Oximetry 91 Oxygen Delivery Me thod High Flow Nasal Ca nnula Oxygen Flow Rate 20 Fraction of Inspir ed Oxygen 70 70 07/10/23 20:22 07/10/23 20:30 07/10/23 21:00 Temperature Pulse Rate 106 H Pulse Rate [Left P ulse Oximeter] 90 Respiratory Rate Blood Pressure [Le ft Arm] Blood Pressure [Ri ght Arm] 108/83 Pulse Oximetry Oxygen Delivery Me thod Oxygen Flow Rate Fraction of Inspir ed Oxygen 70 07/10/23 21:00 07/10/23 21:30 07/10/23 21:43 Temperature Pulse Rate 101 H Pulse Rate [Left P ulse Oximeter] 97 99 Respiratory Rate Blood Pressure [Le ft Arm] Blood Pressure [Ri ght Arm] 107/57 L 102/58 L Pulse Oximetry Oxygen Delivery Me thod Oxygen Flow Rate Fraction of Inspir ed Oxygen 07/10/23 23:00 07/10/23 23:00 07/10/23 23:00 Temperature 97.5 F L Pulse Rate 91 Pulse Rate [Left P ulse Oximeter] 93 Respiratory Rate 20 Blood Pressure [Le ft Arm] 106/65 Blood Pressure [Ri ght Arm] Pulse Oximetry 89 Oxygen Delivery Me thod High Flow Nasal Ca nnula Oxygen Flow Rate 20 Fraction of Inspir ed Oxygen 70 70 07/10/23 23:00 07/10/23 23:00 07/11/23 00:00 Temperature 97.5 F L Pulse Rate Pulse Rate [Left P ulse Oximeter] 91 Respiratory Rate 20 20 20 Blood Pressure [Le ft Arm] 99/58 L Blood Pressure [Ri ght Arm] Pulse Oximetry 90 89 Oxygen Delivery Me thod High Flow Nasal Ca nnula High Flow Nasal Ca nnula Oxygen Flow Rate 20 20 Fraction of Inspir ed Oxygen 70 70 07/11/23 01:00 07/11/23 02:00 07/11/23 03:00 Temperature 97.1 F L Pulse Rate 88 Pulse Rate [Left P ulse Oximeter] 86 Respiratory Rate 20 Blood Pressure [Le ft Arm] 100/73 Blood Pressure [Ri ght Arm] Pulse Oximetry 90 Oxygen Delivery Me thod High Flow Nasal Ca nnula Oxygen Flow Rate 20 Fraction of Inspir ed Oxygen 70 70 07/11/23 03:00 07/11/23 04:00 07/11/23 05:00 Temperature 97.3 F L Pulse Rate Pulse Rate [Left P ulse Oximeter] 80 Respiratory Rate 20 Blood Pressure [Le ft Arm] 102/64 Blood Pressure [Ri ght Arm] Pulse Oximetry 92 Oxygen Delivery Me thod High Flow Nasal Ca nnula Oxygen Flow Rate 20 Fraction of Inspir ed Oxygen 70 70 70 07/11/23 06:00 07/11/23 07:33 07/11/23 08:00 Temperature 97 F L Pulse Rate 78 Pulse Rate [Left P ulse Oximeter] 84 Respiratory Rate 20 Blood Pressure [Le ft Arm] 94/61 Blood Pressure [Ri ght Arm] Pulse Oximetry 89 Oxygen Delivery Me thod High Flow Nasal Ca nnula Oxygen Flow Rate 20 Fraction of Inspir ed Oxygen 70 70 07/11/23 08:00 07/11/23 08:00 07/11/23 08:00 Temperature 96.7 F L Pulse Rate Pulse Rate [Left P ulse Oximeter] 79 79 Respiratory Rate 20 20 20 Blood Pressure [Le ft Arm] 106/63 Blood Pressure [Ri ght Arm] Pulse Oximetry 93 93 Oxygen Delivery Me thod High Flow Nasal Ca nnula High Flow Nasal Ca nnula Oxygen Flow Rate 20 20 Fraction of Inspir ed Oxygen 70 70 Labs Labs: Laboratory Results - last 24 hr 07/10/23 07/10/23 07/10/23 06:17 09:17 10:51 WBC RBC Hgb Hct MCV MCH MCHC RDW Coeff of Rufina Plt Count Neut % (Auto) Lymph % (Auto) [place] % (Auto) Eos % (Auto) Baso % (Auto) Neut # (Auto) Lymph # (Auto) [place] # (Auto) Eos # (Auto) Baso # (Auto) Abs Immat Gran (auto) Imm/Tot Granulo (auto) INR APTT ABG pH ABG pCO2 ABG pO2 ABG HCO3 ABG Total CO2 ABG O2 Saturation ABG Base Excess VBG pH VBG pCO2 VBG pO2 VBG HCO3 Carboxyhemoglobin Sodium Potassium Chloride Carbon Dioxide Anion Gap BUN Creatinine Estimated Creat Clear Estimated GFR Glucose Lactate Calcium Magnesium 2.4 Troponin I 11.10 H* C-Reactive Protein Free T4 Lab Acknowledgement Test Added 07/10/23 07/10/23 07/10/23 14:19 15:40 21:25 WBC RBC Hgb Hct MCV MCH MCHC RDW Coeff of Rufina Plt Count Neut % (Auto) Lymph % (Auto) [place] % (Auto) Eos % (Auto) Baso % (Auto) Neut # (Auto) Lymph # (Auto) [place] # (Auto) Eos # (Auto) Baso # (Auto) Abs Immat Gran (auto) Imm/Tot Granulo (auto) INR APTT 29 118 H* ABG pH 7.43 ABG pCO2 35 ABG pO2 54.0 L ABG HCO3 23 ABG Total CO2 21 ABG O2 Saturation 87 L ABG Base Excess -0.6 VBG pH VBG pCO2 VBG pO2 VBG HCO3 Carboxyhemoglobin < 1.0 Sodium Potassium Chloride Carbon Dioxide Anion Gap BUN Creatinine Estimated Creat Clear Estimated GFR Glucose Lactate Calcium Magnesium Troponin I C-Reactive Protein Free T4 Lab Acknowledgement 07/11/23 07/11/23 07/11/23 05:00 05:20 07:34 WBC 8.87 RBC 3.60 L Hgb 11.9 L Hct 35.6 MCV 99 MCH 33 MCHC 33 RDW Coeff of Rufina 13.3 Plt Count 141 Neut % (Auto) 87.0 H Lymph % (Auto) 6.8 L [place] % (Auto) 5.6 Eos % (Auto) 0.3 Baso % (Auto) 0.1 Neut # (Auto) 7.70 H Lymph # (Auto) 0.60 L [place] # (Auto) 0.50 Eos # (Auto) 0.03 Baso # (Auto) 0.01 Abs Immat Gran (auto) 0.02 Imm/Tot Granulo (auto) 0.2 INR 1.21 H APTT 52 H ABG pH ABG pCO2 ABG pO2 ABG HCO3 ABG Total CO2 ABG O2 Saturation ABG Base Excess VBG pH 7.445 H VBG pCO2 43 VBG pO2 41.7 VBG HCO3 29 H Carboxyhemoglobin Sodium 134 L Potassium 3.2 L Chloride 102 Carbon Dioxide 27 Anion Gap 5 L BUN 14 Creatinine 1.0 Estimated Creat Clear 35.52 Estimated GFR 55 Glucose 94 Lactate 0.9 Calcium 7.9 L Magnesium 2.0 Troponin I 12.80 H* C-Reactive Protein 6.4 H Free T4 0.86 Lab Acknowledgement Test Added
[2023-07-11] MEDS: ATORVASTATIN CALCIUM 40 MG TABLET 80 MG PO (09:30)
[2023-07-11] MEDS: CITALOPRAM HYDROBROMIDE 20 MG TABLET PO (09:30)
[2023-07-11] MEDS: POTASSIUM CHLORIDE 10 MEQ CAPSULE ER 20 MEQ PO (09:30)
[2023-07-11] MEDS: OMEPRAZOLE 20 MG CAPSULE DR PO (09:30)
[2023-07-11] MEDS: DONEPEZIL 10 MG TABLET PO (09:30)
[2023-07-11] MEDS: ASPIRIN 81 MG TAB.CHEW PO (09:30)
[2023-07-11] MEDS: POTASSIUM CHLORIDE 10 MEQ/100 ML PIGGYBACK 100 MEQ IVPB ×2 (09:31→10:45)
[2023-07-11] MEDS: PIPERACILLIN/TAZOBACTAM 3.375 GM in 0.9 % SODIUM CHLORIDE Mini-bag 100 ML IVPB ×3 (09:31→21:13)
[2023-07-11] MEDS: SODIUM CHLORIDE 0.9 % (FLUSH) 10 ML SYRINGE 5 ML IVF ×2 (09:33→21:14)
[2023-07-11] MEDS: TICAGRELOR 90 MG TABLET PO ×2 (09:35→21:14)
[2023-07-11] MEDS: NYSTATIN POWDER 1 APPLIC TOPICAL ×2 (09:37→14:32)
[2023-07-11 10:07] LABS: Lab Add On Test Y
--- NOTE | 2023-07-11 10:34 | PC.SOCIAL ---
Discharge planning- E-mail to Zayra Gamez at [facility] to provide update. Per MD, pt may be ready by Saturday and inquired on whether a face to face would need to be completed for pt to return. Social work will follow up as needed.
[2023-07-11] MEDS: FUROSEMIDE 40 MG TABLET PO (10:56)
[2023-07-11] MEDS: DIGOXIN 125 MCG TABLET PO (10:56)
[2023-07-11 12:29] LABS: Partial Thromboplastin Time* 63 Seconds (23-33)
[2023-07-11 18:45] LABS: Partial Thromboplastin Time* 55 Seconds (23-33)
--- NOTE | 2023-07-11 19:08 | PC.NURSE ---
Addendum entered by Tavo Vazquez RN 07/11/23 19:40: high Flow is 20 60 and 35 Original Note: End of Shift: Pt pleasant and cooperative. Alert to self. she was able to remember nurse name and where the nurse is from. Afebrile. Denies pain. Up to bsc with 1-2 assist, walker and gait belt. Tele showing A-fib. Heparin drip patent. PTT done q 6 hours no changes today. Frequent BP monitoring. pt is unit and per md is to stay unit today. MD's where updated throughout shift. Continues on HFNC at 20L 50% 36. per RT if she is cont above 95% we are ok to turn down o2 by 10. 60-50%. Lung sounds diminished and no wheezing. Solis is patent. Tolerating regular diet with no nausea. she is eating, drinking, and solis patent. Picc is patent. double lumen. SL is also patent. she had a large BM. she is very polite, she says so sorry and thank you.
[2023-07-11] MEDS: LATANOPROST 0.005% OPHTH 1 DROP EYE-LEFT (21:13)
[2023-07-11] MEDS: QUETIAPINE 25 MG TABLET 12.5 MG PO (21:14)
[2023-07-11] MEDS: INSULIN ASPART 100 UNIT/ML SUBCUT (21:15)
[2023-07-12] VITALS (14 sets, daily range): BP systolic 90–119; BP diastolic 57–69; PULSE 66–79; RESP 18–20; TEMP 35.9–36.8; O2SAT 91–95
[2023-07-12] MEDS: HEPARIN 25,000 UNIT/500 ML BAG 13 UNIT IV (01:22)
[2023-07-12] MEDS: PIPERACILLIN/TAZOBACTAM 3.375 GM in 0.9 % SODIUM CHLORIDE Mini-bag 100 ML IVPB ×4 (03:26→21:13)
--- NOTE | 2023-07-12 05:15 | PC.NURSE ---
Shift note -: Pt w/ dementia,very pleasant w/ repetitive statements, daughter @ bedside, supportive. Remains on Hi-eula / for sats 92-94%, lungs decreased w/ fine crackles and intermittent audible exp wheeze, GARNER, Zosyn for potential PNX, afebrile, CXR in am. Tele reads A-fib rates 70-80's, no c/o CP, Hep gtt @ 650 units, PTT in am. Up to BSC x2 w/ A1-2 as ability to follow direction varies and tires easily. UOP Q2h, consistently >30ml per hour per solis. PICC R upper arm intact.
[2023-07-12] MEDS: ACETAMINOPHEN 325 MG TABLET 650 MG PO (06:16)
[2023-07-12] MEDS: SODIUM CHLORIDE 0.9 % (FLUSH) 10 ML SYRINGE 5 ML IVF ×3 (06:27→21:13)
[2023-07-12 06:41] LABS: HCO3 VBG 30 mmol/L (21-28); PCO2 VBG 47 mmHG (40-50); PO2 VBG 39.9 mmHG (25-47); pH VBG 7.411 (7.32-7.43)
[2023-07-12 06:49] LABS: Hematocrit 34.9 % (33.0-51.0); Hemoglobin* 11.6 gm/dL (12.0-16.0); Mean Corpuscular HGB Conc 33 gm/dL (32-36); Mean Corpuscular Hemoglobin 33 pg (26-34); Mean Corpuscular Volume 99 fL (80-100); Platelet Count* 148 K/uL (140-440); Red Blood Count 3.52 m/uL (4.00-5.20); White Blood Count* 7.03 K/uL (4.50-11.00)
[2023-07-12 06:50] LABS: Slide Review Reflex No
--- NOTE | 2023-07-12 07:00 | CRLHL7_ITS ---
For Patients: As a result of the Century Cures Act, medical imaging exams and procedure reports are released immediately into your electronic medical record. You may view this report before your referring provider. If you have questions, please contact your health care provider. INDICATION: Acute coronary syndrome. Congestive heart failure. TECHNIQUE: [employer] COMPARISON: 07/11/2023. FINDINGS: Patient positioning: The patient is not rotated. Adequate inspiration. Unchanged right PICC line. Heart and mediastinum: Normal transverse dimension of the cardiac silhouette. No significant abnormalities. Lungs and pleural spaces: Persistent left pleural effusion and associated left basilar atelectasis. Consolidation may coexist. No evidence of right upper lobe pulmonary venous diversion, interstitial or pulmonary edema. No significant right pleural effusion. A small right pleural effusion is not excluded. Bones and soft tissues: No acute findings. IMPRESSION: Persistent left pleural effusion and associated left basilar atelectasis. Consolidation may coexist. No evidence of right upper lobe pulmonary venous diversion, interstitial or pulmonary edema. No significant right pleural effusion. A small right pleural effusion is not excluded. Dictated by Tavo Brice MD @ 07/12/2023 7:26:06 AM (Electronically Signed)
[2023-07-12 07:05] LABS: Albumin* 2.8 g/dL (3.3-5.0); Chloride* 104 mmol/L (96-114); Sodium* 135 mmol/L (135-149)
[2023-07-12 07:06] LABS: Potassium* 3.2 mmol/L (3.6-5.1)
[2023-07-12 07:07] LABS: Est. Creatinine Clearance* 35.52; Estimated Glomerular Filt Rate 55 ml/min; Partial Thromboplastin Time* 41 Seconds (23-33)
[2023-07-12 07:08] LABS: Alanine Aminotransferase* 12 U/L (4-35); Alkaline Phosphatase* 87 U/L (40-150); Anion Gap 4 mEq/L (7-15); Aspartate Amino Transferase* 44 U/L (12-35); Blood Urea Nitrogen* 15 mg/dL (7-30); Carbon Dioxide* 27 mmol/L (20-32); Total Protein* 5.5 g/dL (6.0-8.3)
[2023-07-12 07:09] LABS: Calcium* 7.8 mg/dL (8.4-10.6); Glucose* 124 mg/dL (60-115); Magnesium* 1.9 mg/dL (1.5-2.6)
[2023-07-12 07:11] LABS: C Reactive Protein* 8.7 mg/dL (0.5-1.0)
[2023-07-12 07:25] LABS: Troponin I* 7.39 ng/mL (0.01-0.04)
[2023-07-12] MEDS: FUROSEMIDE 40 MG TABLET PO (09:24)
[2023-07-12] MEDS: POTASSIUM CHLORIDE 10 MEQ CAPSULE ER 20 MEQ PO ×3 (09:24→18:07)
[2023-07-12] MEDS: OMEPRAZOLE 20 MG CAPSULE DR PO (09:24)
[2023-07-12] MEDS: DIGOXIN 125 MCG TABLET PO (09:25)
[2023-07-12] MEDS: APIXABAN 5 MG TABLET 2.5 MG PO (09:25)
[2023-07-12] MEDS: CITALOPRAM HYDROBROMIDE 20 MG TABLET PO (09:25)
[2023-07-12] MEDS: NYSTATIN POWDER 1 APPLIC TOPICAL ×3 (09:26→21:12)
[2023-07-12] MEDS: DONEPEZIL 10 MG TABLET PO (09:26)
[2023-07-12] MEDS: carvediloL 6.25 MG TABLET 3.125 MG PO ×2 (09:26→21:11)
[2023-07-12] MEDS: ATORVASTATIN CALCIUM 40 MG TABLET 80 MG PO (09:26)
[2023-07-12 09:51] LABS: Legionella pneumo Ag Urine L. pneumo Negative (Negative); S pneumo Ag Urine S. pneumo Negative (Negative)
--- NOTE | 2023-07-12 13:20 | PM.IMPN1 ---
Progress Note: A&P Assessment and plan (1) Non-STEMI (non-ST elevated myocardial infarction): Problem details: Patient presented to the ER after an appointment at her eye doctor where her BP was noted to be low. In the car on the way home, she developed chest pain and came to the ER. In the ER, troponin was positive. EKG ultimately showed ischemic changes, but no ST-segment elevation. Patient's goals are to return home to assisted living with her and she is DNR/DNI. Her chest pain has resolved. Medical management was recommended in concert with discussions with cardiology by both ER and hospitalists. EKG does not continue to show progressive changes. [facility] consult by phone again 07/11, Dr. Walker [facility] consult by phone again 07/10, Dr. Silva. we discussed ongoing conservative care of her ACS - CHF - NSTEMI. in 2008 she had totally clean arteries. the global hypokinesis we see on current echo could be all afib/chf disease (i.e. not exclusively ischemic insult) thus: -Completed heparin x 24hrs (48 total), stop DAPT 07/12 with heparin. resume eliquis only, no asprin. -rate control and myocardial support with digoxin and lose dose coreg (if BP allows) -continue BP support if needed; continue respiratory support with high flow oxygen (managing CHF, any infection and burden of malignancy/effusion) Status: Acute (2) Acute coronary syndrome: Problem details: as described above. Status: Acute (3) Cardiogenic shock: Problem details: Patient has had borderline BP during her stay which has limited some interventions. BP has improved, but still soft and precluding aggressive diuresis here. Echo this admission shows EF 20-25% -balance fluid overload with poor cardiac output/reserve, continue low dose oral lasix for now -manage end organ dysfunction (currently pulmonary with resp compromise) -d/w with cardiology and given advanced age, health care directives, and lack of ischemic chest pain and ST elevation EKG changes - medically manage is appropriate. Status: Acute (4) Acute hypoxemic respiratory failure: Problem details: Multiple potential causes including large left pleural effusion, lung cancer with involvement of left pulmonary artery and atelectasis, heart failure, infection, possible sleep apnea. -Continue high flow supplemental O2, weaning as able -Diurese as able -Planning for potential thoracentesis if no significant improvement in O2 needs over the weekend (discussed with Dr. Scott from general surgery, CT ordered for Saturday and Apixaban ordered to be held starting Saturday) Status: Acute (5) Atrial fibrillation: Problem details: Chronic. Rates have generally been well controlled here. She was loaded with digoxin due to hypotension. Given initial concern for ACS, apixaban was held for heparin drip, Brilinta and aspirin. DAPT stopped 07/11 and she completed 48H on heparin drip. Apixaban resumed. -add coreg if bp supports, but may favor more aggressive diuresis if BP allows. -Goal is for rate less than 100. -Hold apixaban starting Saturday for potential thoracentesis Status: Acute (6) Chronic anticoagulation: Problem details: Chronically on apixaban for atrial fib -See above Status: Acute (7) Infiltrate noted on imaging study: Problem details: CXR on 07/10 showed possible infiltrates - CXR 07/11 did not but there is a long-standing pleural effusion that is likely malignant and not infected but with so little reserve we will cover with abx for a short period of time. -No WBC, no cough, no fever. CRP is trending up. Procalcitonin reassuring. Status: Acute (8) Diabetes mellitus: Problem details: Continue home insulin and sliding scale. Status: Acute (9) Large pleural effusion: Problem details: This has not been evaluated. With left sided lung cancer it is probably malignant but could also be heart failure with her generalized edema. Discussed therapeutic and diagnostic thoracentesis at length with patient and family. With no significant improvement in respiratory failure, planning for thoracentesis on Saturday (general surgery offered to do on Saturday, family prefers to hold off until Saturday, hoping to avoid if she improves). -single dose of IV Lasix on 07/09 was somewhat effective. Repeated 07/10. -Consider lasix drip at low dose (5mg/hr) if BP continues to be stable -CT ordered for Saturday, would do sooner if she decompensates Status: Acute (10) Non-small cell lung cancer: Problem details: Diagnosed August 2021. Left upper lobe. Stage I A to. Favor adenocarcinoma. Status post radio therapy September of 2021. Recurrence of cancer in the left hilum around the left pulmonary artery in March 2022. Repeat radiation in April to May 2022 now on immunotherapy with capmatinib Status: Acute (11) Stage 3 chronic kidney disease: Problem details: Renal function stable with diuretic Status: Acute (12) Dementia: Problem details: Moderate Status: Acute Subjective Date Seen: 07/12/23 Interval history: Patient is seen and examined. She is doing well this morning. Some discomfort in feet/ankles due to ongoing edema. Denies any change in air hunger/SOB. Continues to require high flow at 20 lpm, but has been able to wean FiO2 down to 45% from 60%. Denies any chest pain at this time. No other new complaints. Discussed thoracentesis with patient, family (, son and daughter at bedside) as well as general surgery. Would need to hold Apixaban for 48 hours and surgery prefers a CT to evaluate for loculations. Son (who is POA for medical decisions) is hoping to continue to watch over the weekend to see if she can further wean O2 needs and potentially avoid procedures and CT scans, but is agreeable to holding apixaban starting tomorrow in preparation for potential thoracentesis on SATURDAY. I have additionally ordered a CT scan to be done on Saturday for further evaluation. Risks and benefits of procedure and alternatives discussed. EXAM: GENERAL: Sitting up in chair eating breakfast HEENT: NCAT RESP: High flow O2 in place, no increased work of breathing. Lungs diminished throughout, but more significantly on left side. CV: IRR EXTREMITIES: 1-2+ PARRIS NEURO: Pleasantly confused, answers questions. No obvious lateralizing deficits Exam Const: Vital Signs, click to edit/add: Vital Signs - 24 hr 07/11/23 14:05 07/11/23 14:05 07/11/23 15:30 Temperature 97.3 F L Pulse Rate Pulse Rate [Left P ulse Oximeter] 75 75 Respiratory Rate 18 18 Blood Pressure [Le ft Arm] 118/69 Pulse Oximetry 95 Oxygen Delivery Me thod High Flow Nasal Ca nnula Oxygen Flow Rate 20 Fraction of Inspir ed Oxygen 70 70 07/11/23 15:30 07/11/23 15:50 07/11/23 16:00 Temperature Pulse Rate 69 Pulse Rate [Left P ulse Oximeter] Respiratory Rate 18 Blood Pressure [Le ft Arm] Pulse Oximetry 95 Oxygen Delivery Me thod High Flow Nasal Ca nnula Oxygen Flow Rate 20 Fraction of Inspir ed Oxygen 70 60 02/08/24 17:11 07/11/23 17:11 07/11/23 17:41 Temperature 97.1 F L Pulse Rate 69 Pulse Rate [Left P ulse Oximeter] 74 Respiratory Rate 18 Blood Pressure [Le ft Arm] 121/61 Pulse Oximetry 96 Oxygen Delivery Me thod High Flow Nasal Ca nnula Oxygen Flow Rate 20 Fraction of Inspir ed Oxygen 60 60 07/11/23 20:00 07/11/23 20:00 07/11/23 22:00 Temperature 97.6 F Pulse Rate Pulse Rate [Left P ulse Oximeter] 83 Respiratory Rate 20 Blood Pressure [Le ft Arm] 136/83 Pulse Oximetry 94 Oxygen Delivery Me thod High Flow Nasal Ca nnula Oxygen Flow Rate 20 Fraction of Inspir ed Oxygen 60 60 60 07/11/23 22:00 07/11/23 23:00 07/11/23 23:00 Temperature 98.1 F Pulse Rate 74 Pulse Rate [Left P ulse Oximeter] 75 75 Respiratory Rate 20 20 Blood Pressure [Le ft Arm] 106/61 Pulse Oximetry 94 Oxygen Delivery Me thod High Flow Nasal Ca nnula Oxygen Flow Rate 20 Fraction of Inspir ed Oxygen 60 07/11/23 23:00 07/12/23 00:00 07/12/23 00:00 Temperature 98.3 F Pulse Rate Pulse Rate [Left P ulse Oximeter] 74 Respiratory Rate 20 18 Blood Pressure [Le ft Arm] 105/57 L Pulse Oximetry 94 95 Oxygen Delivery Me thod High Flow Nasal Ca nnula High Flow Nasal Ca nnula Oxygen Flow Rate 20 20 Fraction of Inspir ed Oxygen 60 60 60 07/12/23 02:00 07/12/23 02:00 07/12/23 04:00 Temperature 98.3 F Pulse Rate Pulse Rate [Left P ulse Oximeter] 77 Respiratory Rate 18 Blood Pressure [Le ft Arm] 90/68 Pulse Oximetry 93 Oxygen Delivery Me thod High Flow Nasal Ca nnula Oxygen Flow Rate 20 Fraction of Inspir ed Oxygen 60 60 60 07/12/23 04:00 07/12/23 06:00 07/12/23 06:00 Temperature 97.4 F L 97.7 F Pulse Rate Pulse Rate [Left P ulse Oximeter] 68 79 Respiratory Rate 18 20 Blood Pressure [Le ft Arm] 119/64 108/67 Pulse Oximetry 93 93 Oxygen Delivery Me thod High Flow Nasal Ca nnula High Flow Nasal Ca nnula Oxygen Flow Rate 20 20 Fraction of Inspir ed Oxygen 60 60 60 07/12/23 07:00 07/12/23 07:00 07/12/23 08:00 Temperature Pulse Rate 66 Pulse Rate [Left P ulse Oximeter] Respiratory Rate 18 Blood Pressure [Le ft Arm] Pulse Oximetry 94 Oxygen Delivery Me thod High Flow Nasal Ca nnula Oxygen Flow Rate 20 Fraction of Inspir ed Oxygen 60 60 07/12/23 08:00 07/12/23 08:00 07/12/23 09:25 Temperature 96.6 F L Pulse Rate 69 Pulse Rate [Left P ulse Oximeter] 74 74 Respiratory Rate 18 18 Blood Pressure [Le ft Arm] 104/69 Pulse Oximetry 94 Oxygen Delivery Me thod High Flow Nasal Ca nnula Oxygen Flow Rate 20 Fraction of Inspir ed Oxygen 60 07/12/23 10:00 07/12/23 11:00 07/12/23 12:04 Temperature 97.1 F L Pulse Rate Pulse Rate [Left P ulse Oximeter] 67 Respiratory Rate 18 Blood Pressure [Le ft Arm] 114/60 Pulse Oximetry 95 Oxygen Delivery Me thod High Flow Nasal Ca nnula Oxygen Flow Rate 20 20 Fraction of Inspir ed Oxygen 55 50 50 Labs Labs: Laboratory Results - last 24 hr 07/11/23 07/11/23 07/12/23 09:52 18:15 06:25 WBC 7.03 RBC 3.52 L Hgb 11.6 L Hct 34.9 MCV 99 MCH 33 MCHC 33 Plt Count 148 APTT 55 H 41 H VBG pH 7.411 VBG pCO2 47 VBG pO2 39.9 VBG HCO3 30 H Sodium 135 Potassium 3.2 L Chloride 104 Carbon Dioxide 27 Anion Gap 4 L BUN 15 Creatinine 1.0 Estimated Creat Clear 35.52 Estimated GFR 55 Glucose 124 H Calcium 7.8 L Magnesium 1.9 Total Bilirubin 1.0 AST 44 H ALT 12 Alkaline Phosphatase 87 Troponin I 7.39 H* C-Reactive Protein 8.7 H Total Protein 5.5 L Albumin 2.8 L Urine L. pneumophilia Ag L. pneumo Negative Urine Strep pneumoniae Ag S. pneumo Negative
[2023-07-12] MEDS: INSULIN ASPART 100 UNIT/ML SUBCUT (14:03)
--- NOTE | 2023-07-12 15:09 | PM.IMPN1 ---
Progress Note: A&P Assessment and plan (1) Non-STEMI (non-ST elevated myocardial infarction): Problem details: Patient presented to the ER after an appointment at her eye doctor where her BP was noted to be low. In the car on the way home, she developed chest pain and came to the ER. In the ER, troponin was positive. EKG ultimately showed ischemic changes, but no ST-segment elevation. Patient's goals are to return home to assisted living with her and she is DNR/DNI. Her chest pain has resolved. Medical management was recommended in concert with discussions with cardiology by both ER and hospitalists. EKG does not continue to show progressive changes. [facility] consult by phone again 07/11, Dr. Walker [facility] consult by phone again 07/10, Dr. Silva. we discussed ongoing conservative care of her ACS - CHF - NSTEMI. in 2008 she had totally clean arteries. the global hypokinesis we see on current echo could be all afib/chf disease (i.e. not exclusively ischemic insult) thus: -Completed heparin x 24hrs (48 total), stop DAPT 07/12 with heparin. resume eliquis only, no asprin. -rate control and myocardial support with digoxin and lose dose coreg (if BP allows) -continue BP support if needed; continue respiratory support with high flow oxygen (managing CHF, any infection and burden of malignancy/effusion) 07/13: As above, current management - Eliquis (held for potential thoracentesis), digoxin, low-dose Coreg, Lasix q.a.m., high-flow O2 Chest pressure this morning when rolled to side. Troponin ordered. Status: Acute (2) Acute coronary syndrome: Problem details: as described above. Status: Acute (3) Cardiogenic shock: Problem details: Patient has had borderline BP during her stay which has limited some interventions. BP has improved, but still soft and precluding aggressive diuresis here. Echo this admission shows EF 20-25% -balance fluid overload with poor cardiac output/reserve, continue low dose oral lasix for now -manage end organ dysfunction (currently pulmonary with resp compromise) -d/w with cardiology and given advanced age, health care directives, and lack of ischemic chest pain and ST elevation EKG changes - medically manage is appropriate. Status: Acute (4) Acute hypoxemic respiratory failure: Problem details: Multiple potential causes including large left pleural effusion, lung cancer with involvement of left pulmonary artery and atelectasis, heart failure, infection, possible sleep apnea. -Continue high flow supplemental O2, weaning as able -Diurese as able -Planning for potential thoracentesis if no significant improvement in O2 needs over the weekend (discussed with Dr. Scott from general surgery, CT ordered for Saturday and Apixaban ordered to be held starting Saturday). Dr. Scott will review on Saturday. Status: Acute (5) Atrial fibrillation: Problem details: Chronic. Rates have generally been well controlled here. She was loaded with digoxin due to hypotension. Given initial concern for ACS, apixaban was held for heparin drip, Brilinta and aspirin. DAPT stopped 07/11 and she completed 48H on heparin drip. Apixaban resumed. -on coreg as bp allows, but may favor more aggressive diuresis if BP allows - as of 07/13, unable to proceed with further aggressive diuresis, daughter aware -Goal is for rate less than 100. -Hold apixaban starting Saturday for potential thoracentesis Status: Acute (6) Infiltrate noted on imaging study: Problem details: CXR on 07/10 showed possible infiltrates - CXR 07/11 did not but there is a long-standing pleural effusion that is likely malignant and not infected but with so little reserve we will cover with abx for a short period of time. -No WBC, no cough, no fever. CRP is trending up. Procalcitonin reassuring. 07/13: Following CT tomorrow, if no evidence of infection given reassuring labs, will DC IV antibiotics as causing loose stools Status: Acute (7) Diabetes mellitus: Problem details: Continue home insulin and sliding scale. Status: Acute (8) Large pleural effusion: Problem details: This has not been evaluated. With left sided lung cancer it is probably malignant but could also be heart failure with her generalized edema. Discussed therapeutic and diagnostic thoracentesis at length with patient and family. With no significant improvement in respiratory failure, planning for thoracentesis on Saturday (general surgery offered to do on Saturday, family prefers to hold off until Saturday, hoping to avoid if she improves). -single dose of IV Lasix on 07/09 was somewhat effective. Repeated 07/10. -Consider lasix drip at low dose (5mg/hr) if BP continues to be stable - as of 07/13 unable to increase diuresis, as discussed with daughter -CT ordered for Saturday, would do sooner if she decompensates Status: Acute (9) Non-small cell lung cancer: Problem details: Diagnosed August 2021. Left upper lobe. Stage I A to. Favor adenocarcinoma. Status post radio therapy September of 2021. Recurrence of cancer in the left hilum around the left pulmonary artery in March 2022. Repeat radiation in April to May 2022 now on immunotherapy with capmatinib Status: Acute (10) Stage 3 chronic kidney disease: Problem details: Renal function stable with diuretic Status: Acute (11) Dementia: Problem details: Moderate Status: Acute (12) Diarrhea: Problem details: Likely related to IV antibiotics. Awaiting CT results, will discontinue antibiotics if no evidence of active pneumonia C diff negative Imodium as needed for now Skin cares, barriers to prevent breakdown Status: Acute Plan 07/13: Repeat troponin this morning. CT chest tomorrow morning to be review by General surgery. Possible thoracentesis Saturday. Considering comfort cares if not appropriate for thoracentesis or no improvement following procedure. Monitoring blood pressure though currently unable to further aggressively diurese. Diarrhea management. Discontinue antibiotic as soon as possible if no evidence of active pneumonia. Time Spent With Patient Total time spent: Total time spent caring for the patient today was 60 minutes. This includes time spent for the visit reviewing the chart, time spent during the visit, time spent after the visit and documentation and planning in coordination of care. Subjective Date Seen: 07/12/23 Interval history: Patient is seen with daughter at bedside this morning. Patient reports feeling tired, weak, daughter reports she can see she has gotten weaker over the course of days. Continues on high-flow oxygen with mild dyspnea but denies feeling short of breath. When I am seeing her this morning she denies chest pain or pressure however a couple of hours later she does complain of chest pressure when being rolled onto her side with therapy. In discussion with her daughter Graciela, she verbalizes understanding of where her mother is currently at. Plan for this weekend will be to obtain a CT of the chest tomorrow morning. We will have General Surgery review this. If it appears that a thoracentesis could be completed, Graciela is currently saying they would follow through with this Saturday. If the CT results show that a thoracentesis would not be of benefit or in the case that a thoracentesis is completed but does not change the outcome, Graciela will speak with her family including her brother Wai who is the POA to pursue comfort cares. We also discussed the difficulty in utilizing more aggressive diuresis in the setting of poor pressures. She understands this and does not want to further proceed with more diuresis than her mother's current once daily oral dose. Exam Narrative: Exam Narrative: PHYSICAL EXAM General: Lying in bed, appears tired, calm Cardiovascular: RRR Pulmonary: Diminished, no expiratory wheezes. Mild dyspnea on high-flow Abdominal: Soft, nondistended, NTTP Neurological: Answering questions appropriately, falls asleep easily during conversation Extremities: No gross joint deformity or swelling.Neurovascularly intact Skin: Warm, dry. Const: Vital Signs, click to edit/add: Vital Signs - 24 hr 07/11/23 15:30 07/11/23 15:30 07/11/23 15:50 Temperature Pulse Rate Pulse Rate [Left P ulse Oximeter] 75 Respiratory Rate 18 18 Blood Pressure [Le ft Arm] Pulse Oximetry 95 Oxygen Delivery Me thod High Flow Nasal Ca nnula Oxygen Flow Rate 20 Fraction of Inspir ed Oxygen 70 60 07/11/23 16:00 07/11/23 17:11 07/11/23 17:11 Temperature 97.1 F L Pulse Rate 69 69 Pulse Rate [Left P ulse Oximeter] 74 Respiratory Rate 18 Blood Pressure [Le ft Arm] 121/61 Pulse Oximetry 96 Oxygen Delivery Me thod High Flow Nasal Ca nnula Oxygen Flow Rate 20 Fraction of Inspir ed Oxygen 60 07/11/23 17:41 07/11/23 20:00 07/11/23 20:00 Temperature 97.6 F Pulse Rate Pulse Rate [Left P ulse Oximeter] 83 Respiratory Rate 20 Blood Pressure [Le ft Arm] 136/83 Pulse Oximetry 94 Oxygen Delivery Me thod High Flow Nasal Ca nnula Oxygen Flow Rate 20 Fraction of Inspir ed Oxygen 60 60 60 07/11/23 22:00 07/11/23 22:00 07/11/23 23:00 Temperature 98.1 F Pulse Rate 74 Pulse Rate [Left P ulse Oximeter] 75 Respiratory Rate 20 Blood Pressure [Le ft Arm] 106/61 Pulse Oximetry 94 Oxygen Delivery Me thod High Flow Nasal Ca nnula Oxygen Flow Rate 20 Fraction of Inspir ed Oxygen 60 60 07/11/23 23:00 07/11/23 23:00 07/12/23 00:00 Temperature Pulse Rate Pulse Rate [Left P ulse Oximeter] 75 Respiratory Rate 20 20 Blood Pressure [Le ft Arm] Pulse Oximetry 94 Oxygen Delivery Me thod High Flow Nasal Ca nnula Oxygen Flow Rate 20 Fraction of Inspir ed Oxygen 60 60 07/12/23 00:00 07/12/23 02:00 07/12/23 02:00 Temperature 98.3 F 98.3 F Pulse Rate Pulse Rate [Left P ulse Oximeter] 74 77 Respiratory Rate 18 18 Blood Pressure [Le ft Arm] 105/57 L 90/68 Pulse Oximetry 95 93 Oxygen Delivery Me thod High Flow Nasal Ca nnula High Flow Nasal Ca nnula Oxygen Flow Rate 20 20 Fraction of Inspir ed Oxygen 60 60 60 07/12/23 04:00 07/12/23 04:00 07/12/23 06:00 Temperature 97.4 F L Pulse Rate Pulse Rate [Left P ulse Oximeter] 68 Respiratory Rate 18 Blood Pressure [Le ft Arm] 119/64 Pulse Oximetry 93 Oxygen Delivery Me thod High Flow Nasal Ca nnula Oxygen Flow Rate 20 Fraction of Inspir ed Oxygen 60 60 60 07/12/23 06:00 07/12/23 07:00 07/12/23 07:00 Temperature 97.7 F Pulse Rate 66 Pulse Rate [Left P ulse Oximeter] 79 Respiratory Rate 20 18 Blood Pressure [Le ft Arm] 108/67 Pulse Oximetry 93 94 Oxygen Delivery Me thod High Flow Nasal Ca nnula High Flow Nasal Ca nnula Oxygen Flow Rate 20 20 Fraction of Inspir ed Oxygen 60 60 07/12/23 08:00 07/12/23 08:00 07/12/23 08:00 Temperature 96.6 F L Pulse Rate Pulse Rate [Left P ulse Oximeter] 74 74 Respiratory Rate 18 18 Blood Pressure [Le ft Arm] 104/69 Pulse Oximetry 94 Oxygen Delivery Me thod High Flow Nasal Ca nnula Oxygen Flow Rate 20 Fraction of Inspir ed Oxygen 60 60 07/12/23 09:25 07/12/23 10:00 07/12/23 11:00 Temperature 97.1 F L Pulse Rate 69 Pulse Rate [Left P ulse Oximeter] 67 Respiratory Rate 18 Blood Pressure [Le ft Arm] 114/60 Pulse Oximetry 95 Oxygen Delivery Me thod High Flow Nasal Ca nnula Oxygen Flow Rate 20 Fraction of Inspir ed Oxygen 55 50 07/12/23 12:04 Temperature Pulse Rate Pulse Rate [Left P ulse Oximeter] Respiratory Rate Blood Pressure [Le ft Arm] Pulse Oximetry Oxygen Delivery Me thod Oxygen Flow Rate 20 Fraction of Inspir ed Oxygen 50 Labs Labs: Laboratory Results - last 24 hr 07/11/23 07/11/23 07/12/23 09:52 18:15 06:25 WBC 7.03 RBC 3.52 L Hgb 11.6 L Hct 34.9 MCV 99 MCH 33 MCHC 33 Plt Count 148 APTT 55 H 41 H VBG pH 7.411 VBG pCO2 47 VBG pO2 39.9 VBG HCO3 30 H Sodium 135 Potassium 3.2 L Chloride 104 Carbon Dioxide 27 Anion Gap 4 L BUN 15 Creatinine 1.0 Estimated Creat Clear 35.52 Estimated GFR 55 Glucose 124 H Calcium 7.8 L Magnesium 1.9 Total Bilirubin 1.0 AST 44 H ALT 12 Alkaline Phosphatase 87 Troponin I 7.39 H* C-Reactive Protein 8.7 H Total Protein 5.5 L Albumin 2.8 L Urine L. pneumophilia Ag L. pneumo Negative Urine Strep pneumoniae Ag S. pneumo Negative
[2023-07-12] MEDS: LACTOBACILLUS ACIDOPHILUS 1 TABLET 1 TAB PO (18:07)
[2023-07-12 19:28] LABS: Chloride* 102 mmol/L (96-114); Potassium* 3.2 mmol/L (3.6-5.1); Sodium* 134 mmol/L (135-149)
[2023-07-12 19:30] LABS: Creatinine* 0.9 mg/dL (0.5-1.5); Est. Creatinine Clearance* 35.52; Estimated Glomerular Filt Rate 63 ml/min
[2023-07-12 19:31] LABS: Anion Gap 5 mEq/L (7-15); Blood Urea Nitrogen* 14 mg/dL (7-30); Calcium* 7.9 mg/dL (8.4-10.6); Carbon Dioxide* 27 mmol/L (20-32); Glucose* 140 mg/dL (60-115)
--- NOTE | 2023-07-12 19:35 | PC.NURSE ---
WEANED HIFLOW FIO2 FROM 60% TO 40% AND O2 SATS 93-95%. PATIENT CONFUSED AT BASELINE BUT PLEASANT AND COOPERATIVE. UP WITH A2, WALKER AND GAIT BELT TO BSC AND RECLINER. PATIENT C/O PAIN TO TOP OF BILATERAL FEET WITH ACTIVITY. 2+ PITTING EDEMA TO BILATERAL LE. SOB WITH EXERTION. KRISHNA IN PLACE. PATIENT HAD STOOLS TODAY THAT INCREASED IN FREQUENCY AND BECAME INCREASINGLY MORE LOOSE AND OCCASIONALLY INCONTINENT. CDIFF SAMPLE SENT AND LACTOBACILLUS STARTED. PATENT IN AFIB WITH NVR MOST OF SHIFT. THIS EVENING PATIENT NOTED TO BE IN BIGEMINY AND MD UPDATED. EKG COMPLETED AND LABS DRAWN FROM PICC LINE PER MD.
[2023-07-12 19:48] LABS: Magnesium* 1.8 mg/dL (1.5-2.6)
[2023-07-12 20:46] LABS: C.Difficile Negative (Negative); CDIFFEPI 027 Presumptive Negative (Negative)
[2023-07-12] MEDS: QUETIAPINE 25 MG TABLET 12.5 MG PO (21:10)
[2023-07-12] MEDS: LATANOPROST 0.005% OPHTH 1 DROP EYE-LEFT (21:12)
[2023-07-12] MEDS: CALCIUM GLUC 1,000MG/50 ML 1,000 MG/50 ML BAG 100 MG IVPB (22:07)
[2023-07-13] VITALS (16 sets, daily range): BP systolic 103–119; BP diastolic 56–70; PULSE 55–68; RESP 18–22; TEMP 36.1–37.4; O2SAT 91–95
[2023-07-13] MEDS: PIPERACILLIN/TAZOBACTAM 3.375 GM in 0.9 % SODIUM CHLORIDE Mini-bag 100 ML IVPB ×4 (04:33→20:17)
[2023-07-13 07:03] LABS: HCO3 VBG 28 mmol/L (21-28); PCO2 VBG 37 mmHG (40-50); pH VBG 7.477 (7.32-7.43)
[2023-07-13 07:07] LABS: Ionized Calcium* 1.13 mmol/L (1.11-1.30)
[2023-07-13 07:10] LABS: Hematocrit 34.5 % (33.0-51.0); Hemoglobin* 11.6 gm/dL (12.0-16.0); Mean Corpuscular HGB Conc 34 gm/dL (32-36); Mean Corpuscular Hemoglobin 33 pg (26-34); Mean Corpuscular Volume 99 fL (80-100); Platelet Count* 164 K/uL (140-440); Red Blood Count 3.49 m/uL (4.00-5.20); White Blood Count* 7.85 K/uL (4.50-11.00)
[2023-07-13 07:15] LABS: Slide Review Reflex No
[2023-07-13 07:26] LABS: Albumin* 2.9 g/dL (3.3-5.0)
[2023-07-13 07:27] LABS: Chloride* 106 mmol/L (96-114); Sodium* 135 mmol/L (135-149)
[2023-07-13 07:29] LABS: Anion Gap 4 mEq/L (7-15); Carbon Dioxide* 25 mmol/L (20-32); Creatinine* 0.9 mg/dL (0.5-1.5); Est. Creatinine Clearance* 35.52; Estimated Glomerular Filt Rate 63 ml/min
[2023-07-13 07:30] LABS: Alanine Aminotransferase* 12 U/L (4-35); Alkaline Phosphatase* 73 U/L (40-150); Aspartate Amino Transferase* 32 U/L (12-35); Blood Urea Nitrogen* 12 mg/dL (7-30); Calcium* 8.2 mg/dL (8.4-10.6); Glucose* 82 mg/dL (60-115); Magnesium* 2.2 mg/dL (1.5-2.6); Potassium* 3.3 mmol/L (3.6-5.1); Total Protein* 5.6 g/dL (6.0-8.3)
--- NOTE | 2023-07-13 07:38 | PC.NURSE ---
Pt pleasant and cooperative. Very tired appearing. Up x1 to the BR overnight had 1 inc moderate liquid stool. Recieved calcuim, mag and Potassuium bumps overnight. PICC will fdlush but not drawn. Lab notivied and they came and did a peripheral draw. Day RN notivied of this problem. Pt very weak and tired. Daughter at bedside all noc.
[2023-07-13] MEDS: ATORVASTATIN CALCIUM 40 MG TABLET 80 MG PO (09:12)
[2023-07-13] MEDS: POTASSIUM CHLORIDE 10 MEQ CAPSULE ER 20 MEQ PO (09:13)
[2023-07-13] MEDS: carvediloL 6.25 MG TABLET 3.125 MG PO ×2 (09:13→20:18)
[2023-07-13] MEDS: LACTOBACILLUS ACIDOPHILUS 1 TABLET 1 TAB PO ×3 (09:13→17:22)
[2023-07-13] MEDS: CITALOPRAM HYDROBROMIDE 20 MG TABLET PO (09:13)
[2023-07-13] MEDS: FUROSEMIDE 40 MG TABLET PO (09:13)
[2023-07-13] MEDS: OMEPRAZOLE 20 MG CAPSULE DR PO (09:13)
[2023-07-13] MEDS: DIGOXIN 125 MCG TABLET PO (09:13)
[2023-07-13] MEDS: DONEPEZIL 10 MG TABLET PO (09:14)
[2023-07-13] MEDS: SODIUM CHLORIDE 0.9 % (FLUSH) 10 ML SYRINGE 5 ML IVF ×2 (09:14→20:17)
[2023-07-13] MEDS: LOPERAMIDE HCL 2 MG CAPSULE 4 MG PO (09:51)
[2023-07-13] MEDS: NYSTATIN POWDER 1 APPLIC TOPICAL ×3 (09:52→20:19)
--- NOTE | 2023-07-13 10:33 | PM.IMPN1 ---
Progress Note: A&P Assessment and plan (1) Non-STEMI (non-ST elevated myocardial infarction): Problem details: Patient presented to the ER after an appointment at her eye doctor where her BP was noted to be low. In the car on the way home, she developed chest pain and came to the ER. In the ER, troponin was positive. EKG ultimately showed ischemic changes, but no ST-segment elevation. Patient's goals are to return home to assisted living with her and she is DNR/DNI. Her chest pain has resolved. Medical management was recommended in concert with discussions with cardiology by both ER and hospitalists. EKG does not continue to show progressive changes. [facility] consult by phone again 07/11, Dr. Walker [facility] consult by phone again 07/10, Dr. Silva. we discussed ongoing conservative care of her ACS - CHF - NSTEMI. in 2008 she had totally clean arteries. the global hypokinesis we see on current echo could be all afib/chf disease (i.e. not exclusively ischemic insult) thus: -Completed heparin x 24hrs (48 total), stop DAPT 07/12 with heparin. resume eliquis only, no asprin. -rate control and myocardial support with digoxin and lose dose coreg (if BP allows) -continue BP support if needed; continue respiratory support with high flow oxygen (managing CHF, any infection and burden of malignancy/effusion) 07/13: As above, current management - Eliquis (held for potential thoracentesis), digoxin, low-dose Coreg, Lasix q.a.m., high-flow O2 Chest pressure this morning when rolled to side. Troponin ordered. Status: Acute (2) Acute coronary syndrome: Problem details: as described above. Status: Acute (3) Cardiogenic shock: Problem details: Patient has had borderline BP during her stay which has limited some interventions. BP has improved, but still soft and precluding aggressive diuresis here. Echo this admission shows EF 20-25% -balance fluid overload with poor cardiac output/reserve, continue low dose oral lasix for now -manage end organ dysfunction (currently pulmonary with resp compromise) -d/w with cardiology and given advanced age, health care directives, and lack of ischemic chest pain and ST elevation EKG changes - medically manage is appropriate. Status: Acute (4) Acute hypoxemic respiratory failure: Problem details: Multiple potential causes including large left pleural effusion, lung cancer with involvement of left pulmonary artery and atelectasis, heart failure, infection, possible sleep apnea. -Continue high flow supplemental O2, weaning as able -Diurese as able -Planning for potential thoracentesis if no significant improvement in O2 needs over the weekend (discussed with Dr. Scott from general surgery, CT ordered for Saturday and Apixaban ordered to be held starting Saturday). Dr. Scott will review on Saturday. Status: Acute (5) Atrial fibrillation: Problem details: Chronic. Rates have generally been well controlled here. She was loaded with digoxin due to hypotension. Given initial concern for ACS, apixaban was held for heparin drip, Brilinta and aspirin. DAPT stopped 07/11 and she completed 48H on heparin drip. Apixaban resumed. -on coreg as bp allows, but may favor more aggressive diuresis if BP allows - as of 07/13, unable to proceed with further aggressive diuresis, daughter aware -Goal is for rate less than 100. -Hold apixaban starting Saturday for potential thoracentesis Status: Acute (6) Infiltrate noted on imaging study: Problem details: CXR on 07/10 showed possible infiltrates - CXR 07/11 did not but there is a long-standing pleural effusion that is likely malignant and not infected but with so little reserve we will cover with abx for a short period of time. -No WBC, no cough, no fever. CRP is trending up. Procalcitonin reassuring. 07/13: Following CT tomorrow, if no evidence of infection given reassuring labs, will DC IV antibiotics as causing loose stools Status: Acute (7) Diabetes mellitus: Problem details: Continue home insulin and sliding scale. Status: Acute (8) Large pleural effusion: Problem details: This has not been evaluated. With left sided lung cancer it is probably malignant but could also be heart failure with her generalized edema. Discussed therapeutic and diagnostic thoracentesis at length with patient and family. With no significant improvement in respiratory failure, planning for thoracentesis on Saturday (general surgery offered to do on Saturday, family prefers to hold off until Saturday, hoping to avoid if she improves). -single dose of IV Lasix on 07/09 was somewhat effective. Repeated 07/10. -Consider lasix drip at low dose (5mg/hr) if BP continues to be stable - as of 07/13 unable to increase diuresis, as discussed with daughter -CT ordered for Saturday, would do sooner if she decompensates Status: Acute (9) Non-small cell lung cancer: Problem details: Diagnosed August 2021. Left upper lobe. Stage I A to. Favor adenocarcinoma. Status post radio therapy September of 2021. Recurrence of cancer in the left hilum around the left pulmonary artery in March 2022. Repeat radiation in April to May 2022 now on immunotherapy with capmatinib Status: Acute (10) Stage 3 chronic kidney disease: Problem details: Renal function stable with diuretic Status: Acute (11) Dementia: Problem details: Moderate Status: Acute (12) Diarrhea: Problem details: Likely related to IV antibiotics. Awaiting CT results, will discontinue antibiotics if no evidence of active pneumonia C diff negative Imodium as needed for now Skin cares, barriers to prevent breakdown Status: Acute Plan 07/13: Repeat troponin this morning. CT chest tomorrow morning to be review by General surgery. Possible thoracentesis Saturday. Considering comfort cares if not appropriate for thoracentesis or no improvement following procedure. Monitoring blood pressure though currently unable to further aggressively diurese. Diarrhea management. Discontinue antibiotic as soon as possible if no evidence of active pneumonia. Time Spent With Patient Total time spent: Total time spent caring for the patient today was 60 minutes. This includes time spent for the visit reviewing the chart, time spent during the visit, time spent after the visit and documentation and planning in coordination of care. Subjective Date Seen: 07/14/23 Exam Narrative: Exam Narrative: PHYSICAL EXAM General: Lying in bed, appears tired, calm Cardiovascular: RRR Pulmonary: Diminished, no expiratory wheezes. Mild dyspnea on high-flow Abdominal: Soft, nondistended, NTTP Neurological: Answering questions appropriately, falls asleep easily during conversation Extremities: No gross joint deformity or swelling.Neurovascularly intact Skin: Warm, dry. Const: Vital Signs, click to edit/add: Vital Signs - 24 hr 07/12/23 11:00 07/12/23 12:04 07/12/23 14:00 Temperature 97.1 F L Pulse Rate Pulse Rate [Left P ulse Oximeter] 67 Respiratory Rate 18 Blood Pressure [Le ft Arm] 114/60 Pulse Oximetry 95 Oxygen Delivery Me thod High Flow Nasal Ca nnula Oxygen Flow Rate 20 20 Fraction of Inspir ed Oxygen 50 50 40 07/12/23 15:00 07/12/23 15:00 07/12/23 15:00 Temperature Pulse Rate 67 Pulse Rate [Left P ulse Oximeter] 70 Respiratory Rate 18 18 Blood Pressure [Le ft Arm] Pulse Oximetry 95 Oxygen Delivery Me thod High Flow Nasal Ca nnula Oxygen Flow Rate 20 Fraction of Inspir ed Oxygen 40 07/12/23 16:00 07/12/23 18:00 07/12/23 23:00 Temperature Pulse Rate Pulse Rate [Left P ulse Oximeter] 66 Respiratory Rate Blood Pressure [Le ft Arm] Pulse Oximetry Oxygen Delivery Me thod Oxygen Flow Rate Fraction of Inspir ed Oxygen 40 40 07/12/23 23:00 07/12/23 23:00 07/13/23 03:35 Temperature 97.3 F L Pulse Rate 71 Pulse Rate [Left P ulse Oximeter] 66 Respiratory Rate 18 18 Blood Pressure [Le ft Arm] 109/63 Pulse Oximetry 91 91 Oxygen Delivery Me thod High Flow Nasal Ca nnula High Flow Nasal Ca nnula Oxygen Flow Rate 20 20 Fraction of Inspir ed Oxygen 40 40 07/13/23 04:00 07/13/23 06:00 07/13/23 08:00 Temperature Pulse Rate Pulse Rate [Left P ulse Oximeter] Respiratory Rate 22 Blood Pressure [Le ft Arm] Pulse Oximetry 93 Oxygen Delivery Me thod High Flow Nasal Ca nnula Oxygen Flow Rate 20 Fraction of Inspir ed Oxygen 40 40 40 07/13/23 08:38 07/13/23 08:38 07/13/23 08:42 Temperature 97.8 F Pulse Rate 64 Pulse Rate [Left P ulse Oximeter] 65 Respiratory Rate 22 Blood Pressure [Le ft Arm] 103/66 Pulse Oximetry 93 Oxygen Delivery Me thod High Flow Nasal Ca nnula Oxygen Flow Rate 20 Fraction of Inspir ed Oxygen 40 40 07/13/23 09:08 07/13/23 09:13 Temperature Pulse Rate 66 Pulse Rate [Left P ulse Oximeter] Respiratory Rate Blood Pressure [Le ft Arm] Pulse Oximetry Oxygen Delivery Me thod Oxygen Flow Rate 20 Fraction of Inspir ed Oxygen 40 Labs Labs: Laboratory Results - last 24 hr 07/12/23 07/12/23 07/13/23 18:52 19:05 06:57 WBC 7.85 RBC 3.49 L Hgb 11.6 L Hct 34.5 MCV 99 MCH 33 MCHC 34 Plt Count 164 VBG pH 7.477 H VBG pCO2 37 L VBG pO2 43.0 VBG HCO3 28 Sodium 134 L 135 Potassium 3.2 L 3.3 L Chloride 102 106 Carbon Dioxide 27 25 Anion Gap 5 L 4 L BUN 14 12 Creatinine 0.9 0.9 Estimated Creat Clear 35.52 35.52 Estimated GFR 63 63 Glucose 140 H 82 Calcium 7.9 L 8.2 L Ionized Calcium Panchito 1.13 Magnesium 1.8 2.2 Total Bilirubin 1.0 AST 32 ALT 12 Alkaline Phosphatase 73 Total Protein 5.6 L Albumin 2.9 L Stl C. diff Tox B Gene Negative Stl C. diff [id number] Presumptive Negative
[2023-07-13 10:55] LABS: Troponin I* 3.91 ng/mL (0.01-0.04)
--- NOTE | 2023-07-13 12:01 | REH.PT ---
PT held 07/13 due to elevated troponins
[2023-07-13] MEDS: INSULIN ASPART 100 UNIT/ML SUBCUT ×3 (13:17→20:21)
[2023-07-13] MEDS: 0.9 % SODIUM CHLORIDE 250 ml IV (16:43)
--- NOTE | 2023-07-13 16:55 | PC.NURSE ---
Shift Summary: Pleasant and cooperative. Up with 2 assist to BSC, patient up frequently at start of shift and became fatigued. Loose BM x3, new orders given for Imodium. Vitals stable and WNL, patient continues to use hiflow. Denies pain or nausea. Turn and repositioned in bed q2h. Patients mood and appetite have improved throughout day. Family present throughout day and assist with feedings.
[2023-07-13] MEDS: QUETIAPINE 25 MG TABLET 12.5 MG PO (20:18)
[2023-07-13] MEDS: LATANOPROST 0.005% OPHTH 1 DROP EYE-LEFT (20:18)
[2023-07-14] VITALS (13 sets, daily range): BP systolic 102–113; BP diastolic 51–68; PULSE 56–70; RESP 16–20; TEMP 36.3–37.1; O2SAT 89–94
[2023-07-14] MEDS: PIPERACILLIN/TAZOBACTAM 3.375 GM in 0.9 % SODIUM CHLORIDE Mini-bag 100 ML IVPB ×4 (04:09→20:21)
[2023-07-14 06:16] LABS: HCO3 VBG 27 mmol/L (21-28); PCO2 VBG 37 mmHG (40-50); PO2 VBG 57.3 mmHG (25-47); pH VBG 7.477 (7.32-7.43)
[2023-07-14 06:57] LABS: Albumin* 2.8 g/dL (3.3-5.0); Chloride* 106 mmol/L (96-114)
[2023-07-14 06:58] LABS: Potassium* 3.2 mmol/L (3.6-5.1); Sodium* 134 mmol/L (135-149)
[2023-07-14 06:59] LABS: Hematocrit 32.7 % (33.0-51.0); Hemoglobin* 10.9 gm/dL (12.0-16.0); Mean Corpuscular HGB Conc 33 gm/dL (32-36); Mean Corpuscular Hemoglobin 33 pg (26-34); Mean Corpuscular Volume 98 fL (80-100); Platelet Count* 166 K/uL (140-440); Red Blood Count 3.34 m/uL (4.00-5.20)
[2023-07-14 07:00] LABS: Alanine Aminotransferase* 11 U/L (4-35); Alkaline Phosphatase* 81 U/L (40-150); Anion Gap 3 mEq/L (7-15); Aspartate Amino Transferase* 24 U/L (12-35); Bilirubin Total* 0.7 mg/dL (0.1-1.5); Blood Urea Nitrogen* 11 mg/dL (7-30); Calcium* 7.9 mg/dL (8.4-10.6); Carbon Dioxide* 25 mmol/L (20-32); Creatinine* 0.9 mg/dL (0.5-1.5); Est. Creatinine Clearance* 35.52; Estimated Glomerular Filt Rate 63 ml/min; Glucose* 135 mg/dL (60-115); Total Protein* 5.4 g/dL (6.0-8.3)
--- NOTE | 2023-07-14 07:00 | CRLHL7_ITS ---
For Patients: As a result of the Century Cures Act, medical imaging exams and procedure reports are released immediately into your electronic medical record. You may view this report before your referring provider. If you have questions, please contact your health care provider. INDICATION: Pleural effusion COMPARISON: Chest radiograph 07/12/2023, abdominal ultrasound 07/10/2023, CT chest with contrast 07/07/2020, CT abdomen pelvis with contrast 07/05/2020 TECHNIQUE: CT of the chest, abdomen, and pelvis without intravenous contrast. Multiplanar axial, coronal, and sagittal reformats were reconstructed. MIP images to improve detection of pulmonary nodules are included. Intravenous contrast: None. Oral contrast was not administered. FINDINGS: CHEST: Lungs: Expiratory phase imaging. 5 mm subpleural nodule in the right upper lobe on series 3, image 45 minimal aeration in the anterior basal right lower lobe. The right lower lobe is otherwise completely collapsed. The posterior apical segment of the left upper lobe appears consolidated rather than atelectatic. There is a central granuloma within that area. Previously there was a small nodular opacity at the approximate location in 2020. Densely calcified granuloma not seen at that time. There also calcified left upper hilar lymph nodes. The more inferior segments of the left lower lobe are completely collapsed. Normal appearance of the pulmonary interstitium. Pleura: Small right and moderate left pleural effusions. Effusions are posteriorly layering and appear simple. No pneumothorax. Airway: Expiratory phase imaging. There is near complete collapse of the distal trachea through the gunnar. The anterior-posterior dimension is only 2 mm. Lymph nodes: Coarse calcifications in left upper hilar lymph nodes. No enlarged thoracic lymph nodes.. Mediastinum: No pneumomediastinum. Heart and great vessels: No pericardial effusion. Normal cardiac chamber size. Heavy atherosclerotic plaques. No aortic aneurysm. Bones: No fractures. No focal bone lesions. Normal for age. Chest wall: Normal. No masses. ABDOMEN AND PELVIS: Liver: Normal size and non-contrast attenuation. Gallbladder and biliary tree: The gallbladder is distended. No focal pericholecystic fluid. No biliary duct dilation. Pancreas: Normal. Spleen: Calcified granulomas. Normal size. Adrenal glands: Normal. No nodules. Kidneys and bladder: Normal size and position. Unchanged exophytic right renal cyst. Unchanged exophytic left renal cyst. No calculi. No urinary tract dilation. The urinary bladder is decompressed with a Valenzuela catheter. GI: Extensive colonic diverticulosis without diverticulitis no dilated segments. No abnormal bowel wall thickening. Small stool burden. The appendix is normal. Vessels: Normal caliber abdominal aorta with heavy calcified atherosclerotic plaques. Peritoneum: Trace free fluid. Lymph nodes: No adenopathy. Pelvis: Physiologic appearance of the reproductive organs. Abdominal wall: Battery pack in the right gluteal muscle with a sacral nerve lead extending into the presacral space. Tiny umbilical hernia containing fat. Mild soft tissue anasarca. Bones: No fractures. No focal bone lesions. Multilevel lumbar disc degeneration and facet arthropathy. There are bilateral L5 pars defects with grade 1 anterolisthesis L5 on S1. IMPRESSION: 1. Moderate left and small right pleural effusions of unclear etiology. 2. The posterior apical left upper lobe appears to be more consolidated than collapsed. Evidence of prior granulomatous disease. Pneumonia and/or obstructing lesion is not excluded. Contrast-enhanced CT chest would likely be helpful in clarifying. Otherwise, attention on follow-up is recommended. 3. Distended gallbladder without secondary noncontrast CT findings of cholecystitis. 4. 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 Please note that all CT scans at this facility use dose modulation, iterative reconstruction, and/or weight-based dosing when appropriate to reduce radiation dose to as low as reasonably achievable. Dictated by Belkis Grant MD @ 07/14/2023 10:21:26 AM (Electronically Signed)
[2023-07-14 07:03] LABS: Slide Review Reflex No
--- NOTE | 2023-07-14 07:19 | P.IMPN_ITS ---
Progress Note: A&P Assessment and plan (1) Non-STEMI (non-ST elevated myocardial infarction): Problem details: Patient presented to the ER after an appointment at her eye doctor where her BP was noted to be low. In the car on the way home, she developed chest pain and came to the ER. In the ER, troponin was positive. EKG ultimately showed ischemic changes, but no ST-segment elevation. Patient's goals are to return home to assisted living with her and she is DNR/DNI. Her chest pain has resolved. Medical management was recommended in concert with discussions with cardiology by both ER and hospitalists. EKG does not continue to show progressive changes. [facility] consult by phone again 07/11, Dr. Walker [facility] consult by phone again 07/10, Dr. Silva. we discussed ongoing conservative care of her ACS - CHF - NSTEMI. in 2008 she had totally clean arteries. the global hypokinesis we see on current echo could be all afib/chf disease (i.e. not exclusively ischemic insult) thus: -Completed heparin x 24hrs (48 total), stop DAPT 07/12 with heparin. resume eliqui s only, no asprin. -rate control and myocardial support with digoxin and lose dose coreg (if BP allows) -continue BP support if needed; continue respiratory support with high flow oxygen (managing CHF, any infection and burden of malignancy/effusion) 07/13: As above, current management - Eliquis (held for potential thoracentesis), digoxin, low-dose Coreg, Lasix q.a.m., high-flow O2 Chest pressure this morning when rolled to side. Troponin 3.91, trended down from previous. Pressure likely related to being rolled onto side, increasing pressure work of breathing with pleural effusion Status: Acute (2) Acute coronary syndrome: Problem details: as described above. Status: Acute (3) Cardiogenic shock: Problem details: Patient has had borderline BP during her stay which has limited some interventio ns. BP has improved, but still soft and precluding aggressive diuresis here. Echo this admission shows EF 20-25% -balance fluid overload with poor cardiac output/reserve, continue low dose oral lasix for now -manage end organ dysfunction (currently pulmonary with resp compromise) -d/w with cardiology and given advanced age, health care directives, and lack of ischemic chest pain and ST elevation EKG changes - medically manage is appropriate. Status: Acute (4) Acute hypoxemic respiratory failure: Problem details: Multiple potential causes including large left pleural effusion, lung cancer with involvement of left pulmonary artery and atelectasis, heart failure, infection, possible sleep apnea. -Continue high flow supplemental O2, weaning as able -Diurese as able 07/14: CT reviewed by . After discussion with family, will plan to proceed with thoracentesis today. Goal to improve breathing. Leonel discussion with patient and daughters that will still need to consider next step in course of care, including comfort measures. CT also shows tracheomalacia. Dr. Scott suggested bronchodilators, further diuresis, CPAP/BiPAP. Discussed with RT. Unsure that bronchodilators would be effective in her case. CPAP/BiPAP would need to be continuous. Discussed this with family and patient and currently not sure that this would be a quality measure for her. Patient is currently on Lasix once daily, unable to increase to more aggressive diuresis given soft pressures. Reviewed this again with family. Status: Acute (5) Atrial fibrillation: Problem details: Chronic. Rates have generally been well controlled here. She was loaded with digoxin due to hypotension. Given initial concern for ACS, apixaban was held for heparin drip, Brilinta and aspirin. DAPT stopped 07/11 and she completed 48H on heparin drip. Apixaban resumed. -on coreg as bp allows, but may favor more aggressive diuresis if BP allows - as of 07/13, unable to proceed with further aggressive diuresis, daughter aware -Goal is for rate less than 100. -Hold apixaban starting Saturday for potential thoracentesis. Confirm with Dr. Scott when to restart apixaban. Status: Acute (6) Infiltrate noted on imaging study: Problem details: CXR on 07/10 showed possible infiltrates - CXR 07/11 did not but there is a long- standing pleural effusion that is likely malignant and not infected but with so little reserve we will cover with abx for a short period of time. -No WBC, no cough, no fever. CRP is trending up. Procalcitonin reassuring. 07/13: Following CT tomorrow, if no evidence of infection given reassuring labs, will DC IV antibiotics as causing loose stools 07/14: Consolidation, pneumonia and or obstructing lesion cannot be excluded. Continue IV antibiotics Status: Acute (7) Diabetes mellitus: Problem details: Continue home insulin and sliding scale. Status: Acute (8) Large pleural effusion: Problem details: This has not been evaluated. With left sided lung cancer it is probably malignant but could also be heart failure with her generalized edema. Discussed therapeutic and diagnostic thoracentesis at length with patient and family. With no significant improvement in respiratory failure, planning for thoracentesis on Saturday (general surgery offered to do on Saturday, family prefers to hold off until Saturday, hoping to avoid if she improves). -single dose of IV Lasix on 07/09 was somewhat effective. Repeated 07/10. -Consider lasix drip at low dose (5mg/hr) if BP continues to be stable - as of 07/13 unable to increase diuresis, as discussed with daughter -07/14 CT reviewed with . Thoracentesis today Status: Acute (9) Non-small cell lung cancer: Problem details: Diagnosed August 2021. Left upper lobe. Stage I A to. Favor adenocarcinoma. Status post radio therapy September of 2021. Recurrence of cancer in the left hilum around the left pulmonary artery in March 2022. Repeat radiation in April to May 2022 now on immunotherapy with capmatinib Status: Acute (10) Stage 3 chronic kidney disease: Problem details: Renal function stable with diuretic Status: Acute (11) Dementia: Problem details: Moderate Status: Acute (12) Diarrhea: Problem details: Likely related to IV antibiotics. C diff negative Imodium as needed for now Skin cares, barriers to prevent breakdown Status: Acute (13) Hypokalemia: Problem details: Has been on potassium for replacement once daily with occasional bumps to twice daily. Will increase potassium replacement to 40 mEq b.i.d. 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 Cares as discussed with Dr. Scott and RT above. Status: Acute Plan 07/14: Thoracentesis this afternoon. Family and patient aware to consider plan of care going forward, including comfort cares. Could consider CPAP/BiPAP which would need to be 24 hours per RT. Resume anticoagulation per General surgery. Time Spent With Patient Total time spent: Total time spent caring for the patient today was 60 minutes. This includes time spent for the visit reviewing the chart, time spent during the visit, time spent after the visit and documentation and planning in coordination of care. Subjective Date Seen: 07/14/23 Interval history: Patient is seen with daughter and [id number] at bedside. She remains quite tired and weak. Did not sleep well. Continues to complain of feeling quite short of breath with pressure throughout her chest, worse with positional changes to her side. Remains afebrile. Systolic pressure is labile but typically <110. Poor appetite. Diarrhea responsive to Imodium yesterday but returned today. Exam Narrative: Exam Narrative: PHYSICAL EXAM General: Lying in bed, appears tired, calm Cardiovascular: RRR Pulmonary: Diminished, no expiratory wheezes. Mild dyspnea on high-flow. Upper airway noise noted consistent with collapse trachea Abdominal: Soft, nondistended, NTTP Neurological: Answering questions appropriately, continues to fall asleep easily during conversation Extremities: No gross joint deformity or swelling.Neurovascularly intact Skin: Warm, dry. Const: Vital Signs, click to edit/add: Vital Signs - 24 hr 07/13/23 08:00 07/13/23 08:38 07/13/23 08:38 Temperature 97.8 F Pulse Rate Pulse Rate [Left P ulse Oximeter] 65 Respiratory Rate 22 22 Blood Pressure [Le ft Arm] 103/66 Pulse Oximetry 93 93 Oxygen Delivery Me thod High Flow Nasal Ca nnula High Flow Nasal Ca nnula Oxygen Flow Rate 20 20 Fraction of Inspir ed Oxygen 40 40 40 07/13/23 08:42 07/13/23 09:08 07/13/23 09:13 Temperature Pulse Rate 64 66 Pulse Rate [Left P ulse Oximeter] Respiratory Rate Blood Pressure [Le ft Arm] Pulse Oximetry Oxygen Delivery Me thod Oxygen Flow Rate 20 Fraction of Inspir ed Oxygen 40 07/13/23 11:00 07/13/23 11:00 07/13/23 13:00 Temperature 98.6 F Pulse Rate Pulse Rate [Left P ulse Oximeter] 68 Respiratory Rate 22 Blood Pressure [Le ft Arm] 109/56 L Pulse Oximetry 92 Oxygen Delivery Me thod High Flow Nasal Ca nnula Oxygen Flow Rate Fraction of Inspir ed Oxygen 40 40 07/13/23 14:59 07/13/23 14:59 07/13/23 14:59 Temperature Pulse Rate Pulse Rate [Left P ulse Oximeter] 62 Respiratory Rate 20 20 Blood Pressure [Le ft Arm] Pulse Oximetry 92 Oxygen Delivery Me thod High Flow Nasal Ca nnula Oxygen Flow Rate 20 Fraction of Inspir ed Oxygen 40 40 07/13/23 15:00 07/13/23 15:39 07/13/23 17:00 Temperature 99.4 F Pulse Rate 63 Pulse Rate [Left P ulse Oximeter] 62 Respiratory Rate 20 Blood Pressure [Le ft Arm] 114/65 Pulse Oximetry 92 Oxygen Delivery Me thod High Flow Nasal Ca nnula Oxygen Flow Rate Fraction of Inspir ed Oxygen 40 07/13/23 20:00 07/13/23 20:00 07/13/23 20:00 Temperature Pulse Rate 59 L Pulse Rate [Left P ulse Oximeter] 64 Respiratory Rate 20 Blood Pressure [Le ft Arm] Pulse Oximetry Oxygen Delivery Me thod Oxygen Flow Rate Fraction of Inspir ed Oxygen 35 07/13/23 20:00 07/13/23 22:00 07/13/23 23:00 Temperature 97.0 F L Pulse Rate Pulse Rate [Left P ulse Oximeter] 55 L Respiratory Rate 20 18 Blood Pressure [Le ft Arm] 119/70 Pulse Oximetry 92 92 Oxygen Delivery Me thod High Flow Nasal Ca nnula High Flow Nasal Ca nnula Oxygen Flow Rate 20 20 Fraction of Inspir ed Oxygen 35 35 35 07/13/23 23:00 07/14/23 01:00 07/14/23 03:00 Temperature Pulse Rate Pulse Rate [Left P ulse Oximeter] Respiratory Rate Blood Pressure [Le ft Arm] Pulse Oximetry Oxygen Delivery Me thod Oxygen Flow Rate Fraction of Inspir ed Oxygen 35 35 35 07/14/23 03:00 07/14/23 05:00 Temperature Pulse Rate Pulse Rate [Left P ulse Oximeter] Respiratory Rate 18 Blood Pressure [Le ft Arm] Pulse Oximetry 93 Oxygen Delivery Me thod High Flow Nasal Ca nnula Oxygen Flow Rate 20 Fraction of Inspir ed Oxygen 35 35 Labs Labs: Laboratory Results - last 24 hr 07/13/23 07/13/23 07/14/23 06:57 10:19 06:06 WBC 7.10 RBC 3.34 L Hgb 10.9 L Hct 32.7 L MCV 98 MCH 33 MCHC 33 Plt Count 166 VBG pH 7.477 H VBG pCO2 37 L VBG pO2 57.3 H VBG HCO3 27 Sodium 135 134 L Potassium 3.3 L 3.2 L Chloride 106 106 Carbon Dioxide 25 25 Anion Gap 4 L 3 L BUN 12 11 Creatinine 0.9 0.9 Estimated Creat Clear 35.52 35.52 Estimated GFR 63 63 Glucose 82 135 H Calcium 8.2 L 7.9 L Magnesium 2.2 2.0 Total Bilirubin 1.0 0.7 AST 32 24 ALT 12 11 Alkaline Phosphatase 73 81 Troponin I 3.91 H* Total Protein 5.6 L 5.4 L Albumin 2.9 L 2.8 L
[2023-07-14] MEDS: 0.9 % SODIUM CHLORIDE 250 ml IV (08:42)
[2023-07-14] MEDS: carvediloL 6.25 MG TABLET 3.125 MG PO ×2 (08:43→20:22)
[2023-07-14] MEDS: OMEPRAZOLE 20 MG CAPSULE DR PO (08:43)
[2023-07-14] MEDS: POTASSIUM CHLORIDE 10 MEQ CAPSULE ER 40 MEQ PO ×2 (08:43→17:46)
[2023-07-14] MEDS: ATORVASTATIN CALCIUM 40 MG TABLET 80 MG PO (08:43)
[2023-07-14] MEDS: LACTOBACILLUS ACIDOPHILUS 1 TABLET 1 TAB PO ×3 (08:43→17:46)
[2023-07-14] MEDS: DONEPEZIL 10 MG TABLET PO (08:43)
[2023-07-14] MEDS: CITALOPRAM HYDROBROMIDE 20 MG TABLET PO (08:44)
[2023-07-14] MEDS: FUROSEMIDE 40 MG TABLET PO (08:44)
[2023-07-14] MEDS: SODIUM CHLORIDE 0.9 % (FLUSH) 10 ML SYRINGE 5 ML IVF ×4 (08:44→20:25)
[2023-07-14] MEDS: NYSTATIN POWDER 1 APPLIC TOPICAL (08:44)
[2023-07-14] MEDS: DIGOXIN 125 MCG TABLET PO (08:44)
--- NOTE | 2023-07-14 10:42 | REH.PT ---
Pt awaiting thoracentesis. Not appropriate for PT evaluation and treatment this date.
[2023-07-14] MEDS: LOPERAMIDE HCL 2 MG CAPSULE PO ×2 (10:43→16:38)
--- NOTE | 2023-07-14 14:56 | CRLHL7_ITS ---
For Patients: As a result of the Century Cures Act, medical imaging exams and procedure reports are released immediately into your electronic medical record. You may view this report before your referring provider. If you have questions, please contact your health care provider. INDICATION: Post thoracentesis for left pleural effusion, presumed malignant. TECHNIQUE: Chest 1 views. COMPARISON: CT 07/14/2023. Radiograph 07/12/2023. FINDINGS: Right PICC tip is in the SVC. Unchanged cardiomediastinal silhouette. Atherosclerotic aortic calcifications. Interval decrease in left-sided pleural effusion status post thoracentesis, now small. There is a small amount of persistent layering fluid with linear opacity in the left lung apex favored to represent layering fluid versus skin fold. Lung markings are seen peripheral to this level. No definite pneumothorax. Unchanged small right pleural effusion. Improved aeration of the left lung base with persistent retrocardiac consolidation. No acute osseous abnormality. IMPRESSION: Interval decrease in left pleural effusion status post thoracentesis. No definite pneumothorax. Findings were discussed with Dr. Em on 07/14/2023 at 3:30 p.m. Dictated by Michelle Harley MD @ 07/14/2023 3:43:25 PM (Electronically Signed)
--- NOTE | 2023-07-14 15:01 | P.GSCN_ITS ---
History of Present Illness Consult details Date Seen: 07/14/23 Consult date: 07/14/23 Narrative: Patient is an 87 yo F, who has been in the hospital for NSTEMI and infection. Her hospital stay has been complicated by the continued need for high-flow supplemental oxygen. On imaging she does have a large left pleural effusion, which could be contributing to the problem. Her medical history is significant for lung cancer and heart failure. At this time the patient does report a productive cough, shortness of breath and chest pressure. Denies any other symptoms, although she is not a reliable historian. In talking with her family she has never had a thoracentesis performed before. She is on Eliquis, which has been held since Saturday (greater than 48 hours). Review of Systems Status of ROS: Reports: 6 or more systems reviewed and unremarkable except as noted in History and below [facility] Medical History (Updated 07/14/23 @ 13:04 by Leila Em PA-C) Diabetes mellitus ?E11.9 - Type 2 diabetes mellitus without complications (ICD-10) Hypoxic respiratory failure ?J96.91 - Respiratory failure, unspecified with hypoxia (ICD-10) Non-STEMI (non-ST elevated myocardial infarction) ?I21.4 - Non-ST elevation (NSTEMI) myocardial infarction (ICD-10) Chronic anticoagulation ?Z79.01 - care home (current) use of anticoagulants (ICD-10) Large pleural effusion ?J90 - Pleural effusion, not elsewhere classified (ICD-10) Hyperlipidemia ?E78.5 - Hyperlipidemia, unspecified (ICD-10) Hypertension ?I10 - Essential (primary) hypertension (ICD-10) Stroke ?I63.9 - Cerebral infarction, unspecified (ICD-10) Stage 3 chronic kidney disease ?N18.30 - Chronic kidney disease, stage 3 unspecified (ICD-10) Sensorineural hearing loss ?H90.5 - Unspecified sensorineural hearing loss (ICD-10) Chronic venous insufficiency ?I87.2 - Venous insufficiency (chronic) (peripheral) (ICD-10) Ankylosing spondylitis ?M45.9 - Ankylosing spondylitis of unspecified sites in spine (ICD-10) Obesity ?E66.9 - Obesity, unspecified (ICD-10) Dementia ?F03.90 - Unspecified dementia, unspecified severity, without behavioral disturbance, psychotic disturbance, mood disturbance, and anxiety (ICD-10) Depression ?F32.A - Depression, unspecified (ICD-10) Atrial fibrillation ?I48.91 - Unspecified atrial fibrillation (ICD-10) Non-small cell lung cancer ?C34.90 - Malignant neoplasm of unspecified part of unspecified bronchus or lung (ICD-10) Surgical History (Updated 07/09/23 @ 19:13 by Brian Theodore MD) History of colonoscopy ?Z98.890 - Other specified postprocedural states (ICD-10) History of lung biopsy ?Z98.890 - Other specified postprocedural states (ICD-10) History of section ?Z98.891 - History of uterine scar from previous surgery (ICD-10) History of appendectomy ?Z90.49 - Acquired absence of other specified parts of digestive tract (ICD- 10) Social History (Updated 07/09/23 @ 19:15 by Brian Theodore MD) Narrative: She lives at [facility]. is also in [facility]. Son, Wai Shukla, is healthcare power of band director. Code status is DNR DNI. Former cigarette smoker, quit in 1997. Rare alcohol use What is your current living situation?: I presently have a place to live Problems where you live: no known problems Problems where you live details: N/A In the past 12 months, utilities in danger of being shut off: no In past 12 months, lack of transportation kept you from medical appts, meetings, work, or getting things needed for daily living: no In the past 12 mos, have been you worried that your food would run out before you had money to buy more?: never true In the past 12 mos, the food you bought just didn't last and you didn't have money to buy more?: never true Smoking Status: Former smoker Do you use any of these nicotine containing products: None How often do you have a drink containing alcohol: never AUDIT-C Alcohol total score: 0 Non-prescribed substance use: denies use Caffeine: No How often does anyone, including family, friends and others, physically hurt you : never How often does anyone, including family, friends and others, insult or talk down to you: never How often does anyone, including family, friends and others, threaten you with harm: never How often does anyone, including family, friends and others, scream or curse at you: never service: No Meds Home Medications and Allergies Home Medications Medication Instructions Recorded Confirmed Type amlodipine 5 mg tablet 5 mg PO DAILY 07/09/23 07/09/23 History apixaban 2.5 mg tablet (Eliquis) 2.5 mg PO BID 07/09/23 07/09/23 History capmatinib 200 mg tablet (Tabrecta) 400 mg PO BID 07/09/23 07/09/23 History citalopram 20 mg tablet 20 mg PO DAILY 07/09/23 07/09/23 History donepezil 10 mg tablet 10 mg PO DAILY 07/09/23 07/09/23 History empagliflozin 25 mg-linagliptin 5 1 tab PO DAILY 07/09/23 07/09/23 History mg tablet (Glyxambi) glipizide 5 mg tablet 5 mg PO BID 07/09/23 07/09/23 History insulin glargine 100 unit/mL (3 18 unit subcut DAILY 07/09/23 07/10/23 History mL) subcutaneous pen (Lantus Solostar U-100 Insulin) latanoprost 0.005 % eye drops 1 drp ophthalmic (eye) HS 07/09/23 07/10/23 History nystatin 100,000 unit/gram topical 1 applic topical BID PRN 07/09/23 07/10/23 History powder (Nystop) omeprazole 20 mg capsule,delayed 20 mg PO DAILY 07/09/23 07/09/23 History release potassium chloride 20 mEq 20 meq PO DAILY 07/09/23 07/09/23 History tablet,extended release quetiapine 25 mg tablet 12.5 mg PO HS 07/09/23 07/09/23 History simvastatin 20 mg tablet 20 mg PO HS 07/09/23 07/10/23 History triamterene 37.5 0.5 tab PO DAILY 07/09/23 07/10/23 History mg-hydrochlorothiazide 25 mg tablet acetaminophen 500 mg tablet 500 mg PO TID PRN 07/10/23 07/10/23 History albuterol sulfate 90 mcg/actuation 2 puff inhalation Q4H PRN 07/10/23 07/10/23 History aerosol inhaler calcium carbonate 200 mg calcium 400 mg PO QID PRN 07/10/23 07/10/23 History (500 mg) chewable tablet (Antacid (calcium carbonate)) cholecalciferol (vitamin D3) 10 10 mcg PO DAILY 07/10/23 07/10/23 History mcg (400 unit) capsule cyanocobalamin (vitamin B-12) 100 100 mcg PO DAILY 07/10/23 07/10/23 History mcg tablet docusate sodium 100 mg capsule 100 mg PO DAILY PRN 07/10/23 07/10/23 History ondansetron 8 mg disintegrating 8 mg PO BID 07/10/23 07/10/23 History tablet prochlorperazine maleate 5 mg 5 mg PO Q6H PRN 07/10/23 07/10/23 History tablet simethicone 80 mg chewable tablet 80 mg PO QID PRN 07/10/23 07/10/23 History (Gas Relief (simethicone)) zinc sulfate 50 mg zinc (220 mg) 50 mg PO DAILY 07/10/23 07/10/23 History capsule Allergies Allergy/AdvReac Type Severity Reaction Status Date / Time bee pollen Allergy Severe Verified 07/09/23 15:32 lisinopril Allergy Severe Swelling Verified 07/09/23 20:03 of Lip/Tongue/Throat pneumococcal vaccine Allergy Severe Verified 07/09/23 20:03 sotalol Allergy Severe Hypotension Verified 07/09/23 20:03 hydrochlorothiazide Allergy Verified 07/09/23 20:03 [From Dyazide] niacin Allergy Verified 07/09/23 20:03 triamterene [From Dyazide] Allergy Verified 07/09/23 20:03 venlafaxine Allergy Verified 07/09/23 20:03 Exam Narrative: Exam Narrative: General: alert, non toxic HEENT: high flow nasal cannula in place, decreased breath sounds LLL CV: well perfused, normal rate Const: Vital Signs, click to edit/add: Vital Signs - 24 hr 07/13/23 15:39 07/13/23 17:00 07/13/23 20:00 Temperature Pulse Rate 63 Pulse Rate [Left P ulse Oximeter] Respiratory Rate Blood Pressure [Le ft Arm] Pulse Oximetry Oxygen Delivery Me thod Oxygen Flow Rate Fraction of Inspir ed Oxygen 40 35 07/13/23 20:00 07/13/23 20:00 07/13/23 20:00 Temperature Pulse Rate 59 L Pulse Rate [Left P ulse Oximeter] 64 Respiratory Rate 20 20 Blood Pressure [Le ft Arm] Pulse Oximetry 92 Oxygen Delivery Me thod High Flow Nasal Ca nnula Oxygen Flow Rate 20 Fraction of Inspir ed Oxygen 35 07/13/23 22:00 07/13/23 23:00 07/13/23 23:00 Temperature 97.0 F L Pulse Rate Pulse Rate [Left P ulse Oximeter] 55 L Respiratory Rate 18 Blood Pressure [Le ft Arm] 119/70 Pulse Oximetry 92 Oxygen Delivery Me thod High Flow Nasal Ca nnula Oxygen Flow Rate 20 Fraction of Inspir ed Oxygen 35 35 35 07/14/23 01:00 07/14/23 03:00 07/14/23 03:00 Temperature Pulse Rate Pulse Rate [Left P ulse Oximeter] Respiratory Rate 18 Blood Pressure [Le ft Arm] Pulse Oximetry 93 Oxygen Delivery Me thod High Flow Nasal Ca nnula Oxygen Flow Rate 20 Fraction of Inspir ed Oxygen 35 35 35 07/14/23 05:00 07/14/23 07:47 07/14/23 07:47 Temperature Pulse Rate 59 L Pulse Rate [Left P ulse Oximeter] Respiratory Rate Blood Pressure [Le ft Arm] Pulse Oximetry Oxygen Delivery Me thod Oxygen Flow Rate Fraction of Inspir ed Oxygen 35 35 07/14/23 07:47 07/14/23 07:47 07/14/23 08:44 Temperature 98.2 F Pulse Rate 70 Pulse Rate [Left P ulse Oximeter] 67 Respiratory Rate 20 20 Blood Pressure [Le ft Arm] 112/68 Pulse Oximetry 91 91 Oxygen Delivery Me thod High Flow Nasal Ca nnula High Flow Nasal Ca nnula Oxygen Flow Rate 20 Fraction of Inspir ed Oxygen 35 07/14/23 09:00 07/14/23 11:00 07/14/23 11:07 Temperature 98.5 F Pulse Rate Pulse Rate [Left P ulse Oximeter] 67 Respiratory Rate 16 Blood Pressure [Le ft Arm] 107/51 L Pulse Oximetry 90 Oxygen Delivery Me thod High Flow Nasal Ca nnula Oxygen Flow Rate 20 20 Fraction of Inspir ed Oxygen 35 35 35 07/14/23 12:35 07/14/23 14:15 Temperature Pulse Rate 56 L Pulse Rate [Left P ulse Oximeter] Respiratory Rate Blood Pressure [Le ft Arm] Pulse Oximetry Oxygen Delivery Me thod Oxygen Flow Rate Fraction of Inspir ed Oxygen 35 Results Labs Labs: Abnormal lab results 07/14/23 Range/Units 06:06 RBC 3.34 L (4.00-5.20) m/uL Hgb 10.9 L (12.0-16.0) gm/dL Hct 32.7 L (33.0-51.0) % VBG pH 7.477 H (7.32-7.43) VBG pCO2 37 L (40-50) mmHG VBG pO2 57.3 H (25-47) mmHG Sodium 134 L (135-149) mmol/L Potassium 3.2 L (3.6-5.1) mmol/L Anion Gap 3 L (7-15) mEq/L Glucose 135 H (60-115) mg/dL Calcium 7.9 L (8.4-10.6) mg/dL Total Protein 5.4 L (6.0-8.3) g/dL Albumin 2.8 L (3.3-5.0) g/dL Diabetes panel 07/14/23 Range/Units 06:06 Sodium 134 L (135-149) mmol/L Potassium 3.2 L (3.6-5.1) mmol/L Chloride 106 (96-114) mmol/L Carbon Dioxide 25 (20-32) mmol/L BUN 11 (7-30) mg/dL Creatinine 0.9 (0.5-1.5) mg/dL Glucose 135 H (60-115) mg/dL Calcium 7.9 L (8.4-10.6) mg/dL AST 24 (12-35) U/L ALT 11 (4-35) U/L Alkaline Phosphatase 81 (40-150) U/L Total Protein 5.4 L (6.0-8.3) g/dL Albumin 2.8 L (3.3-5.0) g/dL Calcium panel 07/14/23 Range/Units 06:06 Calcium 7.9 L (8.4-10.6) mg/dL Albumin 2.8 L (3.3-5.0) g/dL Pituitary panel 07/14/23 Range/Units 06:06 Sodium 134 L (135-149) mmol/L Potassium 3.2 L (3.6-5.1) mmol/L Chloride 106 (96-114) mmol/L Carbon Dioxide 25 (20-32) mmol/L BUN 11 (7-30) mg/dL Creatinine 0.9 (0.5-1.5) mg/dL Glucose 135 H (60-115) mg/dL Calcium 7.9 L (8.4-10.6) mg/dL Adrenal panel 07/14/23 Range/Units 06:06 Sodium 134 L (135-149) mmol/L Potassium 3.2 L (3.6-5.1) mmol/L Chloride 106 (96-114) mmol/L Carbon Dioxide 25 (20-32) mmol/L BUN 11 (7-30) mg/dL Creatinine 0.9 (0.5-1.5) mg/dL Glucose 135 H (60-115) mg/dL Calcium 7.9 L (8.4-10.6) mg/dL Total Bilirubin 0.7 (0.1-1.5) mg/dL AST 24 (12-35) U/L ALT 11 (4-35) U/L Alkaline Phosphatase 81 (40-150) U/L Total Protein 5.4 L (6.0-8.3) g/dL Albumin 2.8 L (3.3-5.0) g/dL All other labs normal. General Surgery Procedures Thoracentesis Time Out Performed: Yes Imaging guidance used ?: Yes Indication: Pleural effusion Procedure: therapeutic thoracentesis and diagnostic thoracentesis Location: left Local anesthetic used: lidocaine Amount of anesthesia used (mL): 6 Bedside ultrasound used: yes, fluid confirmed and location marked Preparation: sterile prep and drape and 11 blade used to make carolyn in skin Amount of fluid obtained (mL): 1,150 Fluid: clear, other (Serous) and sent to lab for analysis Post Procedure Exam: awake, alert, normal BP and normal HR Patient Tolerated Procedure: well Complications: none Progress Note:A&P Assessment and plan (1) Large pleural effusion: Status: Acute Assessment and Plan: Patient is an 87-year-old female with large left-sided pleural effusion. Etiology is likely secondary to cardiogenic versus malignancy with known malignancy of the left upper lobe. Risks and benefits of thoracentesis were discussed at length with the patient's son, who is her power of band director. Risks included, but were not limited to: Bleeding, infection, risk of damage to surrounding structures and possible need for additional procedures. Specifically we discussed the risk of injury to the underlying lung, which can cause pneumothorax and may need placement of a chest tube. All questions and concerns were addressed, with family agreeing to proceed. Postprocedure chest x-ray obtained. Evidence of decreased diffusion on the left side, some layering of fluid in the left upper lobe. No evidence of pneumothorax.
[2023-07-14 15:30] LABS: INR 1.16 (0.91-1.10); Prothrombin Time 15.6 Seconds
[2023-07-14 15:31] LABS: Albumin* 2.7 g/dL (3.3-5.0)
[2023-07-14 15:34] LABS: Cholesterol* 74 mg/dL (90-199); Lactate Dehydrogenase* 255 U/L (120-246); Total Protein* 5.5 g/dL (6.0-8.3)
[2023-07-14 15:46] LABS: Mononuclear WBC Body Fluid* 65 %; Polynuclear WBC Body Fluid* 35 %; RBC, Body Fluid* 1000 Cells/uL; WBC, Body Fluid* 242 Cells/uL
[2023-07-14 15:47] LABS: BF Clarity* Clear; BF Color Xanthochromic; BF Total Volume* 50
[2023-07-14 16:00] LABS: Albumin Body Fluid* < 1.0 gm/dL; Body Fluid Total Protein* < 2.0 gm/dL; Glucose Body Fluid* 173 mg/dL
[2023-07-14 16:01] LABS: Amylase Body Fluid* < 30 U/L; Cholesterol Body Fluid* < 50 mg/dL; LDH Body Fluid* 89 U/L
[2023-07-14 16:17] LABS: pH Body Fluid* 7.5
[2023-07-14] MEDS: ACETAMINOPHEN 325 MG TABLET 650 MG PO (16:38)
--- NOTE | 2023-07-14 17:11 | PC.NURSE ---
Pt alert to self. Pt had complaints of pressure from fluid. Pt had a thoracentesis at bedside with Dr. Scott at 1430; 1150 of fluid taken off. Family at bedside throughout shift. Pt up to commode with two assist, turn and repo Q2. Pt?s lunch time sliding scale insulin not given due to Pt not eating. Pt on high flow oxygen 20,35,36.
[2023-07-14] MEDS: ONDANSETRON 2 MG/ML inj 4 MG IVP (17:50)
--- NOTE | 2023-07-14 18:53 | RESP.RT ---
Patient had thoracentesis that drained 1150ml off of the left side. Patient SAT improved from 92% to 95% on .35HFNC @20Lpm. Ultrasound showed considerable amount of fluid on both the left and right sides. Talked to family about the possibility that the 1150ml of fluid would likely come back over the next couple days.
[2023-07-14] MEDS: LATANOPROST 0.005% OPHTH 1 DROP EYE-LEFT (20:22)
[2023-07-14] MEDS: QUETIAPINE 25 MG TABLET 12.5 MG PO (20:23)
[2023-07-14] MEDS: APIXABAN 5 MG TABLET 2.5 MG PO (20:23)
[2023-07-15] VITALS (12 sets, daily range): BP systolic 93–115; BP diastolic 48–71; PULSE 51–63; RESP 16–24; TEMP 35.9–36.8; O2SAT 90–94
[2023-07-15] MEDS: PIPERACILLIN/TAZOBACTAM 3.375 GM in 0.9 % SODIUM CHLORIDE Mini-bag 100 ML IVPB ×4 (02:42→21:16)
--- NOTE | 2023-07-15 05:36 | PC.NURSE ---
END OF SHIFT NOTE: PT PLEASANT AND COOPERATIVE WITH CARES. A&O TO SELF AND FAMILY. DENIES CP, SOB, N/V. PT WAS TURNED AND REPOSITIONED DURING HS. VSS ON HIGH FLOW (); AFEBRILE. KRISHNA IN PLACE AND PATENT. DAUGHTER DAVID STAYED NIGHT AT PT?S BEDSIDE; APPEARS VERY SUPPORTIVE AND CARING. BED ALARM ON AND CALL LIGHT WITHIN PT?S REACH.
[2023-07-15 07:33] LABS: Hematocrit 34.4 % (33.0-51.0); Hemoglobin* 11.3 gm/dL (12.0-16.0); Mean Corpuscular HGB Conc 33 gm/dL (32-36); Mean Corpuscular Hemoglobin 33 pg (26-34); Mean Corpuscular Volume 99 fL (80-100); Platelet Count* 181 K/uL (140-440); Red Blood Count 3.46 m/uL (4.00-5.20); White Blood Count* 6.31 K/uL (4.50-11.00)
[2023-07-15 07:37] LABS: Slide Review Reflex No
[2023-07-15 07:53] LABS: Albumin* 2.9 g/dL (3.3-5.0); Chloride* 107 mmol/L (96-114)
[2023-07-15 07:54] LABS: Potassium* 3.6 mmol/L (3.6-5.1); Sodium* 137 mmol/L (135-149)
[2023-07-15 07:56] LABS: Anion Gap 5 mEq/L (7-15); Aspartate Amino Transferase* 22 U/L (12-35); Bilirubin Total* 0.7 mg/dL (0.1-1.5); Blood Urea Nitrogen* 9 mg/dL (7-30); Carbon Dioxide* 25 mmol/L (20-32); Creatinine* 0.9 mg/dL (0.5-1.5); Est. Creatinine Clearance* 35.52; Estimated Glomerular Filt Rate 63 ml/min; Total Protein* 5.8 g/dL (6.0-8.3)
[2023-07-15 07:57] LABS: Alanine Aminotransferase* 11 U/L (4-35); Alkaline Phosphatase* 78 U/L (40-150); Calcium* 8.5 mg/dL (8.4-10.6); Glucose* 91 mg/dL (60-115)
[2023-07-15] MEDS: POTASSIUM CHLORIDE 10 MEQ CAPSULE ER 40 MEQ PO ×2 (08:30→17:36)
[2023-07-15] MEDS: FUROSEMIDE 40 MG TABLET PO (08:30)
[2023-07-15] MEDS: LACTOBACILLUS ACIDOPHILUS 1 TABLET 1 TAB PO ×2 (08:30→17:36)
[2023-07-15] MEDS: OMEPRAZOLE 20 MG CAPSULE DR PO (08:31)
[2023-07-15] MEDS: 0.9 % SODIUM CHLORIDE 250 ml IV (08:33)
[2023-07-15] MEDS: SODIUM CHLORIDE 0.9 % (FLUSH) 10 ML SYRINGE 5 ML IVF ×4 (08:33→21:18)
[2023-07-15] MEDS: ATORVASTATIN CALCIUM 40 MG TABLET 80 MG PO (08:49)
[2023-07-15] MEDS: CITALOPRAM HYDROBROMIDE 20 MG TABLET PO (08:49)
[2023-07-15] MEDS: DONEPEZIL 10 MG TABLET PO (08:49)
[2023-07-15] MEDS: carvediloL 6.25 MG TABLET 3.125 MG PO (08:49)
[2023-07-15] MEDS: APIXABAN 5 MG TABLET 2.5 MG PO ×2 (08:50→21:10)
[2023-07-15] MEDS: DIGOXIN 125 MCG TABLET PO (08:50)
--- NOTE | 2023-07-15 09:56 | PM.IMPN1 ---
Progress Note: A&P Assessment and plan (1) Non-STEMI (non-ST elevated myocardial infarction): Problem details: Patient presented to the ER after an appointment at her eye doctor where her BP was noted to be low. In the car on the way home, she developed chest pain and came to the ER. In the ER, troponin was positive. EKG ultimately showed ischemic changes, but no ST-segment elevation. Patient's goals are to return home to assisted living with her and she is DNR/DNI. Her chest pain has resolved. Medical management was recommended in concert with discussions with cardiology by both ER and hospitalists. EKG does not continue to show progressive changes. Echo now showing significantly decreased EF at 26%. [facility] consult by phone again 07/11, Dr. Walker [facility] consult by phone again 07/10, Dr. Silva. we discussed ongoing conservative care of her ACS - CHF - NSTEMI. in 2008 she had totally clean arteries. the global hypokinesis we see on current echo could be all afib/chf disease (i.e. not exclusively ischemic insult) thus: -Completed heparin x 24hrs (48 total), stopped DAPT 07/12 with heparin. resumed eliquis only, no asprin. -rate control and myocardial support with digoxin and lose dose coreg (if BP allows) -continue BP support if needed; continue respiratory support with high flow oxygen (managing CHF, any infection and burden of malignancy/effusion) Status: Acute (2) Acute coronary syndrome: Problem details: as described above. Status: Acute (3) Cardiogenic shock: Problem details: Patient has had borderline BP during her stay which has limited some interventions. BP has improved, but still soft and precluding aggressive diuresis here. Echo this admission shows EF 20-25% -balance fluid overload with poor cardiac output/reserve -manage end organ dysfunction (currently pulmonary with resp compromise) -d/w with cardiology and given advanced age, health care directives, and lack of ischemic chest pain and ST elevation EKG changes - medically manage is appropriate. -07/15/23 will trial lasix drip at 5mg/hr, discontinue if BP cannot tolerate Status: Acute (4) Acute hypoxemic respiratory failure: Problem details: Multiple potential causes including large left pleural effusion, lung cancer with involvement of left pulmonary artery and atelectasis, heart failure, infection, possible sleep apnea. 07/14: CT reviewed by . After discussion with family, will plan to proceed with thoracentesis today. Goal to improve breathing. Leonel discussion with patient and daughters that will still need to consider next step in course of care, including comfort measures. CT also shows tracheomalacia. Dr. Scott suggested bronchodilators, further diuresis, CPAP/BiPAP. Discussed with RT. Unsure that bronchodilators would be effective in her case. CPAP/BiPAP would need to be continuous. Discussed this with family and patient and currently not sure that this would be a quality measure for her. Patient is currently on Lasix once daily, unable to increase to more aggressive diuresis given soft pressures. Reviewed this again with family. 07/15/23: Not much progress with weaning high flow O2 despite thoracentesis for >1L transudative effusion -Continue high flow supplemental O2, weaning as able -Diurese as able (trial lasix drip) -If no improvement in next 24 hours, high likelihood of transition to DAYTIME BABYSITTER/hospice Status: Acute (5) Infiltrate noted on imaging study: Problem details: CXR on 07/10 showed possible infiltrates - CXR 07/11 did not but there is a long-standing pleural effusion that is likely malignant and not infected but with so little reserve we will cover with abx for a short period of time. -No WBC, no cough, no fever. CRP is trending up. Procalcitonin reassuring. 07/14: Consolidation, pneumonia and or obstructing lesion cannot be excluded. Continue IV antibiotics Status: Acute (6) Diabetes mellitus: Problem details: Continue home insulin and sliding scale. Status: Acute (7) Diarrhea: Problem details: Likely related to IV antibiotics. C diff negative Imodium as needed for now Skin cares, barriers to prevent breakdown Status: Acute (8) Hypokalemia: Problem details: Has been on potassium for replacement once daily with occasional bumps to twice daily. Now increased potassium replacement to 40 mEq b.i.d. 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 Cares as discussed with Dr. Scott and RT above. Patient unlikely to be a good candidate for stenting. Discussed with family and patient likely to transition to DAYTIME BABYSITTER if unable to further wean supplemental O2 Status: Acute (10) Hypoxic respiratory failure: Problem details: See above Status: Acute (11) Chronic anticoagulation: Problem details: Chronically on apixaban for atrial fib -See above Status: Acute (12) Large pleural effusion: Problem details: This had not previously been evaluated, but has been present prior to this admission. With left sided lung cancer thought to likely have malignant contribution, but could also be heart failure with her generalized edema. Underwent thoracentesis on 07/14/23 for >1L transudative fluid making CHF more likely major contributor. Unfortunately, not much improvement in O2 needs after thoracentesis -Trial lasix drip Status: Acute (13) Stage 3 chronic kidney disease: Problem details: Renal function stable with diuretic Status: Acute (14) Dementia: Problem details: Moderate Status: Acute (15) Atrial fibrillation: Problem details: Chronic. Rates have generally been well controlled here. She was loaded with digoxin due to hypotension. Given initial concern for ACS, apixaban was held for heparin drip, Brilinta and aspirin. DAPT stopped 07/11 and she completed 48H on heparin drip. Apixaban resumed. -on coreg as bp allows, but may favor more aggressive diuresis if BP allows - as of 07/13, unable to proceed with further aggressive diuresis, daughter aware -Goal is for rate less than 100. -Apixaban held for thora. Now resumed Status: Acute (16) Non-small cell lung cancer: Problem details: Diagnosed August 2021. Left upper lobe. Stage I A to. Favor adenocarcinoma. Status post radio therapy September of 2021. Recurrence of cancer in the left hilum around the left pulmonary artery in March 2022. Repeat radiation in April to May 2022 now on immunotherapy with capmatinib Status: Acute Plan 07/15/23 -Trial lasix drip - Likely transition to COM/hospice if no improvement in O2 needs Subjective Date Seen: 07/15/23 Interval history: Patient is seen and examined. Her son is at bedside. We discussed the new finding of tracheomalacia and also the unfortunate finding that her O2 needs have not changed much since removal of >1L transudative pleural fluid over the weekend. She has become more fatigued, mostly sleeping and has noted chest discomfort with minimal exertion (getting up to commode). We discussed options and son is leaning toward transition to comfort cares with hospice care to start at [facility] if she is able to discharge. He wants to speak with his sister, who is en route to [place] and will make a final decision today. In the meantime, I offered to trial a lasix drip to see if further diuresis might help with her O2 needs and he was agreeable. EXAM General: Sleeping soundly and appears comfortable. Does not awaken with exam HEENT: NCAT, pale CV: Heart tones distant Resp: Expiratory low pitched wheeze (upper airway), diminished lung sounds Extremities: Feet are cool, trace edema Exam Const: Vital Signs, click to edit/add: Vital Signs - 24 hr 07/14/23 11:00 07/14/23 11:07 07/14/23 12:35 Temperature 98.5 F Pulse Rate Pulse Rate [Left P ulse Oximeter] 67 Respiratory Rate 16 Blood Pressure [Le ft Arm] 107/51 L Pulse Oximetry 90 Oxygen Delivery Me thod High Flow Nasal Ca nnula Oxygen Flow Rate 20 20 Fraction of Inspir ed Oxygen 35 35 35 07/14/23 14:15 07/14/23 15:10 07/14/23 15:10 Temperature 98.8 F Pulse Rate 56 L Pulse Rate [Left P ulse Oximeter] 59 L Respiratory Rate 18 18 Blood Pressure [Le ft Arm] 109/64 Pulse Oximetry 92 92 Oxygen Delivery Me thod High Flow Nasal Ca nnula High Flow Nasal Ca nnula Oxygen Flow Rate 20 20 Fraction of Inspir ed Oxygen 35 35 07/14/23 15:39 07/14/23 20:15 07/14/23 20:15 Temperature 97.3 F L Pulse Rate Pulse Rate [Left P ulse Oximeter] 68 Respiratory Rate 16 Blood Pressure [Le ft Arm] 102/52 L Pulse Oximetry 93 Oxygen Delivery Me thod High Flow Nasal Ca nnula Oxygen Flow Rate 20 Fraction of Inspir ed Oxygen 35 35 35 07/14/23 20:15 07/14/23 20:15 07/14/23 20:15 Temperature Pulse Rate 56 L Pulse Rate [Left P ulse Oximeter] 68 Respiratory Rate 16 16 Blood Pressure [Le ft Arm] Pulse Oximetry 93 Oxygen Delivery Me thod High Flow Nasal Ca nnula Oxygen Flow Rate 20 Fraction of Inspir ed Oxygen 35 07/14/23 23:00 07/14/23 23:00 07/15/23 02:49 Temperature 97.8 F Pulse Rate Pulse Rate [Left P ulse Oximeter] 57 L Respiratory Rate 16 Blood Pressure [Le ft Arm] 113/61 Pulse Oximetry 94 Oxygen Delivery Me thod High Flow Nasal Ca nnula Oxygen Flow Rate 20 Fraction of Inspir ed Oxygen 35 35 35 07/15/23 02:49 07/15/23 08:00 07/15/23 08:00 Temperature 98.3 F Pulse Rate Pulse Rate [Left P ulse Oximeter] 58 L Respiratory Rate 16 16 Blood Pressure [Le ft Arm] 109/69 Pulse Oximetry 94 Oxygen Delivery Me thod High Flow Nasal Ca nnula Oxygen Flow Rate 20 Fraction of Inspir ed Oxygen 35 35 07/15/23 08:00 07/15/23 08:00 07/15/23 08:50 Temperature 97.9 F Pulse Rate 58 L Pulse Rate [Left P ulse Oximeter] 58 L Respiratory Rate 24 24 Blood Pressure [Le ft Arm] 115/71 Pulse Oximetry 92 92 Oxygen Delivery Me thod High Flow Nasal Ca nnula High Flow Nasal Ca nnula Oxygen Flow Rate 20 20 Fraction of Inspir ed Oxygen 35 35 Labs Labs: Laboratory Results - last 24 hr 07/14/23 07/14/23 07/15/23 06:06 15:11 07:05 WBC 6.31 RBC 3.46 L Hgb 11.3 L Hct 34.4 MCV 99 MCH 33 MCHC 33 Plt Count 181 INR 1.16 H Sodium 137 Potassium 3.6 Chloride 107 Carbon Dioxide 25 Anion Gap 5 L BUN 9 Creatinine 0.9 Estimated Creat Clear 35.52 Estimated GFR 63 Glucose 91 Calcium 8.5 Magnesium 2.0 Total Bilirubin 0.7 AST 22 ALT 11 Alkaline Phosphatase 78 Lactate Dehydrogenase 255 H Total Protein 5.5 L 5.8 L Albumin 2.7 L 2.9 L Cholesterol 74 L Fluid Volume 50 Fluid Color Xanthochromic A Fluid Appearance Clear Fluid pH 7.5 Fluid WBC 242 Fluid RBC 1000 Fluid Polynuclear WBCs 35 Fluid Mononuclear WBCs 65 Fluid Glucose 173 Fluid Total Protein < 2.0 Fluid Albumin < 1.0 Fluid LDH 89 Fluid Amylase < 30 Fluid Cholesterol < 50
--- NOTE | 2023-07-15 16:45 | PC.SOCIAL ---
Discharge planning- Per MD, pt will return to [facility] with Hospice in place. E-mail to Zayra Gamze at [facility] to provide update. Informed Zayra that pt will be ready for discharge tomorrow. Met with pt's son and discussed discharge plans. Pt's son would like to open with [facility]. Phone call to Nellie Macias at [facility] at [phone] to complete referral. Faxed referral packet to [facility] at [phone]. Received a phone call from Zayra Gamez at [facility] informing that she cannot take pt tomorrow, but can accept pt back to [facility] on Saturday between 10:00 am and 1:00 pm. Zayra requests to have orders sent in advance to prepare for p. Informed Zayra that [facility] will open services. Phone call to Nellie Macias at [facility] to provide update on pt returning to [facility] on Saturday. Nellie will reach out to this worker tomorrow to set a time to open services Saturday. Provided update to charge nurse. Social work will continue to follow up as needed.
[2023-07-15] MEDS: INSULIN ASPART 100 UNIT/ML SUBCUT ×2 (17:35→21:10)
[2023-07-15] MEDS: QUETIAPINE 25 MG TABLET 12.5 MG PO (21:09)
[2023-07-15] MEDS: LATANOPROST 0.005% OPHTH 1 DROP EYE-LEFT (21:18)
--- NOTE | 2023-07-15 22:53 | PC.NURSE ---
Patient goes between periods of drowsy and alert during the shift. Furosemide drip ordered but not administered due to soft blood pressures. Patient titrating off high flow oxygen during the shift. Still continuing to need high flow at 10L and 35% to keep oxygen saturation >88%. Patient otherwise vitally stable. Up to commode with assist X2. Valenzuela catheter in place. Family present during shift and helpful with patient and cares. Plan to wean off high flow and discharge with hospice tomorrow. See social science professor notes. Turn and repositioned every 2 hours. Nursing to continue to monitor.
[2023-07-16] VITALS (8 sets, daily range): BP systolic 80–114; BP diastolic 50–66; PULSE 49–65; RESP 16–18; TEMP 36–36.9; O2SAT 90–96
[2023-07-16] MEDS: PIPERACILLIN/TAZOBACTAM 3.375 GM in 0.9 % SODIUM CHLORIDE Mini-bag 100 ML IVPB ×2 (03:22→08:27)
[2023-07-16 07:02] LABS: Hematocrit 33.5 % (33.0-51.0); Hemoglobin* 11.1 gm/dL (12.0-16.0); Mean Corpuscular HGB Conc 33 gm/dL (32-36); Mean Corpuscular Hemoglobin 33 pg (26-34); Mean Corpuscular Volume 99 fL (80-100); Platelet Count* 168 K/uL (140-440); Red Blood Count 3.38 m/uL (4.00-5.20); White Blood Count* 6.87 K/uL (4.50-11.00)
[2023-07-16 07:14] LABS: Albumin* 2.9 g/dL (3.3-5.0); Chloride* 105 mmol/L (96-114); Sodium* 134 mmol/L (135-149)
[2023-07-16 07:15] LABS: Potassium* 4.1 mmol/L (3.6-5.1)
[2023-07-16 07:17] LABS: Alanine Aminotransferase* 11 U/L (4-35); Alkaline Phosphatase* 76 U/L (40-150); Anion Gap 8 mEq/L (7-15); Aspartate Amino Transferase* 21 U/L (12-35); Bilirubin Total* 0.9 mg/dL (0.1-1.5); Blood Urea Nitrogen* 10 mg/dL (7-30); Calcium* 8.2 mg/dL (8.4-10.6); Carbon Dioxide* 21 mmol/L (20-32); Creatinine* 0.9 mg/dL (0.5-1.5); Est. Creatinine Clearance* 35.52; Estimated Glomerular Filt Rate 63 ml/min; Glucose* 142 mg/dL (60-115); Magnesium* 1.9 mg/dL (1.5-2.6); Total Protein* 5.6 g/dL (6.0-8.3)
--- NOTE | 2023-07-16 07:27 | PC.NURSE ---
End of shift note [id number]: Pt noted to be alert & oriented to self. Son stayed at bedside throughout the shift. Pt refused to use bedside commode when offered and Valenzuela catheter remains in place. Staff assisted pt with repositioning throughout the night. PICC in place to GAVINO. Mepilex to Jessica brady noted to be C/D/I upon inspection. Pt refused KARIN stockings to bilateral lower extremities despite education provided. Day RN updated. Pt remains on telemetry with A fib with bradycardia. DBP continues to trend soft at 105/48 and 114/50. Pt remains on high eula oxygen with no signs or symptoms of respiratory distress.
[2023-07-16 07:39] LABS: Slide Review Reflex No
[2023-07-16] MEDS: POTASSIUM CHLORIDE 10 MEQ CAPSULE ER 40 MEQ PO ×2 (08:22→17:48)
[2023-07-16] MEDS: LACTOBACILLUS ACIDOPHILUS 1 TABLET 1 TAB PO ×3 (08:22→17:45)
[2023-07-16] MEDS: FUROSEMIDE 40 MG TABLET PO (08:22)
[2023-07-16] MEDS: APIXABAN 5 MG TABLET 2.5 MG PO (08:23)
[2023-07-16] MEDS: carvediloL 6.25 MG TABLET 3.125 MG PO (08:23)
[2023-07-16] MEDS: ATORVASTATIN CALCIUM 40 MG TABLET 80 MG PO (08:23)
[2023-07-16] MEDS: CITALOPRAM HYDROBROMIDE 20 MG TABLET PO (08:24)
[2023-07-16] MEDS: DIGOXIN 125 MCG TABLET PO (08:24)
[2023-07-16] MEDS: DONEPEZIL 10 MG TABLET PO (08:25)
[2023-07-16] MEDS: OMEPRAZOLE 20 MG CAPSULE DR PO (08:26)
[2023-07-16] MEDS: ONDANSETRON 2 MG/ML inj 4 MG IVP (09:31)
[2023-07-16] MEDS: ACETAMINOPHEN 325 MG TABLET 650 MG PO (11:09)
--- NOTE | 2023-07-16 11:22 | PM.IMPN1 ---
Progress Note: A&P Assessment and plan (1) Non-STEMI (non-ST elevated myocardial infarction): Problem details: Patient presented to the ER after an appointment at her eye doctor where her BP was noted to be low. In the car on the way home, she developed chest pain and came to the ER. In the ER, troponin was positive. EKG ultimately showed ischemic changes, but no ST-segment elevation. Patient's goals are to return home to assisted living with her and she is DNR/DNI. Her chest pain initially resolved. Medical management was recommended in concert with discussions with cardiology by both ER and hospitalists. EKG does not continue to show progressive changes. Echo now showing significantly decreased EF at 26%. Unfortunately, patient continues to experience intermittent episodes of chest discomfort with activity. Her low BP precludes use of nitrates for symptom management. [facility] consult by phone again 07/11, Dr. Walker [facility] consult by phone again 07/10, Dr. Silva. we discussed ongoing conservative care of her ACS - CHF - NSTEMI. in 2008 she had totally clean arteries. the global hypokinesis we see on current echo could be all afib/chf disease (i.e. not exclusively ischemic insult) thus: -Completed heparin x 24hrs (48 total), stopped DAPT 07/12 with heparin. resumed eliquis only, no asprin. -rate control and myocardial support with digoxin and lose dose coreg (if BP allows) -Continue respiratory support with oxygen -Patient likely to discharge back to [facility] on 07/17 with hospice enrollment Status: Acute (2) Acute coronary syndrome: Problem details: as described above. Status: Acute (3) Cardiogenic shock: Problem details: Patient has had borderline BP during her stay which has limited some interventions. BP has improved, but still soft and precluding aggressive diuresis here. Echo this admission shows EF 26% -balance fluid overload with poor cardiac output/reserve -manage end organ dysfunction (currently pulmonary with resp compromise) -d/w with cardiology and given advanced age, health care directives, and lack of ST elevation EKG changes - medically manage is appropriate. -BP has not been able to tolerate diuresis here and patient and family declined transfer to tertiary facility for higher level of care. -Likely to discharge with hospice, will benefit from ongoing HR and fluid management for comfort Status: Acute (4) Acute hypoxemic respiratory failure: Problem details: Multiple potential causes including large left pleural effusion, lung cancer with involvement of left pulmonary artery and atelectasis, heart failure, infection, possible sleep apnea. 07/14: CT reviewed by . After discussion with family, will plan to proceed with thoracentesis today. Goal to improve breathing. Leonel discussion with patient and daughters that will still need to consider next step in course of care, including comfort measures. CT also shows tracheomalacia. Dr. Scott suggested bronchodilators, further diuresis, CPAP/BiPAP. Discussed with RT. Unsure that bronchodilators would be effective in her case. CPAP/BiPAP would need to be continuous. Discussed this with family and patient and currently not sure that this would be a quality measure for her. Patient is currently on Lasix once daily, unable to increase to more aggressive diuresis given soft pressures. Reviewed this again with family. 07/15/23: Not much progress with weaning high flow O2 despite thoracentesis for >1L transudative effusion 07/16/23: Now weaned to oxymask. With new diagnosis of tracheomalacia, will check VBG. If she is retaining CO2, she may benefit from intermittent BIPAP for symptom management while on hospice Status: Acute (5) Infiltrate noted on imaging study: Problem details: CXR on 07/10 showed possible infiltrates - CXR 07/11 did not but there is a long-standing pleural effusion that is likely malignant and not infected but with so little reserve we will cover with abx for a short period of time. -No WBC, no cough, no fever. CRP is trending up. Procalcitonin reassuring. 07/14: Consolidation, pneumonia and or obstructing lesion cannot be excluded. 07/16: Patient had 6 days of antibiotics, will discontinue with no clear evidence for PNA Status: Acute (6) Diabetes mellitus: Problem details: Continue home insulin and sliding scale. Status: Acute (7) Diarrhea: Problem details: Likely related to IV antibiotics. C diff negative Imodium as needed for now Skin cares, barriers to prevent breakdown Status: Acute (8) Hypokalemia: Problem details: Has been on potassium for replacement once daily with occasional bumps to twice daily. Now increased potassium replacement to 40 mEq b.i.d. 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 Cares as discussed with Dr. Scott and RT above. Patient unlikely to be a good candidate for stenting. -May benefit from intermittent BIPAP if she proves to be a CO2 retainer Status: Acute (10) Hypoxic respiratory failure: Problem details: See above Status: Acute (11) Chronic anticoagulation: Problem details: Chronically on apixaban for atrial fib -See above Status: Acute (12) Large pleural effusion: Problem details: This had not previously been evaluated, but has been present prior to this admission. With left sided lung cancer thought to likely have malignant contribution, but could also be heart failure with her generalized edema. Underwent thoracentesis on 07/14/23 for >1L transudative fluid making CHF more likely major contributor. Unfortunately, not much improvement in O2 needs after thoracentesis -BP was unable to tolerate lasix drip. -Continue oral lasix Status: Acute (13) Stage 3 chronic kidney disease: Problem details: Renal function stable with diuretic Status: Acute (14) Dementia: Problem details: Moderate Status: Acute (15) Atrial fibrillation: Problem details: Chronic. Rates have generally been well controlled here. She was loaded with digoxin due to hypotension. Given initial concern for ACS, apixaban was held for heparin drip, Brilinta and aspirin. DAPT stopped 07/11 and she completed 48H on heparin drip. Apixaban resumed. -on coreg as bp allows, but may favor more aggressive diuresis if BP allows - as of 07/13, unable to proceed with further aggressive diuresis, daughter aware -Goal is for rate less than 100. -Apixaban held for thora. Now resumed. Will continue, but hospice may elect to discontinue Status: Acute (16) Non-small cell lung cancer: Problem details: Diagnosed August 2021. Left upper lobe. Stage I A to. Favor adenocarcinoma. Status post radio therapy September of 2021. Recurrence of cancer in the left hilum around the left pulmonary artery in March 2022. Repeat radiation in April to May 2022 now on immunotherapy with capmatinib Status: Acute Subjective Date Seen: 07/16/23 Interval history: Patient is seen and examined. Her son is at bedside. She reports not feeling well initially with nausea. Patterson better after zofran. Denies any breathing difficulty and has weaned to oxymask, no longer on vapotherm. O2 sats are appropriate/improved. EXAM General: Initially uncomfortable appearing, but improved and no distress on second visit HEENT: NCAT, pale CV: Heart tones distant Resp: Expiratory low pitched wheeze (upper airway), diminished lung sounds Extremities: Feet are warm, 1+ bilateral lower extremity edema Exam Const: Vital Signs, click to edit/add: Vital Signs - 24 hr 07/15/23 12:00 07/15/23 13:56 07/15/23 15:00 Temperature Pulse Rate Pulse Rate [Left P ulse Oximeter] 63 Respiratory Rate Blood Pressure [Le ft Arm] 104/69 Pulse Oximetry 90 90 Oxygen Delivery Me thod High Flow Nasal Ca nnula High Flow Nasal Ca nnula Oxygen Flow Rate 12 5 10 Fraction of Inspir ed Oxygen 35 35 35 07/15/23 15:00 07/15/23 15:00 07/15/23 15:00 Temperature 97.7 F Pulse Rate 53 L Pulse Rate [Left P ulse Oximeter] 54 L Respiratory Rate 20 Blood Pressure [Le ft Arm] 100/65 Pulse Oximetry 90 Oxygen Delivery Me thod High Flow Nasal Ca nnula Oxygen Flow Rate 10 Fraction of Inspir ed Oxygen 35 35 07/15/23 15:00 07/15/23 19:00 07/15/23 19:00 Temperature 97.3 F L Pulse Rate Pulse Rate [Left P ulse Oximeter] 51 L Respiratory Rate 20 20 Blood Pressure [Le ft Arm] 96/48 L Pulse Oximetry 93 Oxygen Delivery Me thod High Flow Nasal Ca nnula Oxygen Flow Rate 10 Fraction of Inspir ed Oxygen 35 35 07/15/23 23:11 07/15/23 23:27 07/15/23 23:28 Temperature Pulse Rate 57 L Pulse Rate [Left P ulse Oximeter] Respiratory Rate 18 Blood Pressure [Le ft Arm] Pulse Oximetry 91 Oxygen Delivery Me thod High Flow Nasal Ca nnula Oxygen Flow Rate 10 Fraction of Inspir ed Oxygen 35 35 07/15/23 23:28 07/15/23 23:39 07/16/23 03:31 Temperature 98.0 F Pulse Rate Pulse Rate [Left P ulse Oximeter] 51 L 51 L Respiratory Rate 18 18 Blood Pressure [Le ft Arm] 105/48 L Pulse Oximetry 91 Oxygen Delivery Me thod High Flow Nasal Ca nnula Oxygen Flow Rate 10 Fraction of Inspir ed Oxygen 35 35 07/16/23 03:31 07/16/23 07:00 07/16/23 08:13 Temperature 97.6 F Pulse Rate 61 Pulse Rate [Left P ulse Oximeter] 63 Respiratory Rate 18 Blood Pressure [Le ft Arm] 114/50 L Pulse Oximetry 90 Oxygen Delivery Me thod High Flow Nasal Ca nnula Oxygen Flow Rate 10 Fraction of Inspir ed Oxygen 35 35 07/16/23 08:13 07/16/23 08:13 07/16/23 08:13 Temperature 98.5 F Pulse Rate Pulse Rate [Left P ulse Oximeter] 65 65 Respiratory Rate 18 18 18 Blood Pressure [Le ft Arm] 111/62 Pulse Oximetry 92 92 Oxygen Delivery Me thod High Flow Nasal Ca nnula High Flow Nasal Ca nnula Oxygen Flow Rate 10 10 Fraction of Inspir ed Oxygen 35 35 07/16/23 08:24 Temperature Pulse Rate 65 Pulse Rate [Left P ulse Oximeter] Respiratory Rate Blood Pressure [Le ft Arm] Pulse Oximetry Oxygen Delivery Me thod Oxygen Flow Rate Fraction of Inspir ed Oxygen Labs Labs: Laboratory Results - last 24 hr 07/15/23 07/16/23 07:05 06:45 WBC 6.87 RBC 3.38 L Hgb 11.1 L Hct 33.5 MCV 99 MCH 33 MCHC 33 Plt Count 168 Sodium 134 L Potassium 4.1 Chloride 105 Carbon Dioxide 21 Anion Gap 8 BUN 10 Creatinine 0.9 Estimated Creat Clear 35.52 Estimated GFR 63 Glucose 142 H Calcium 8.2 L Magnesium 1.9 Total Bilirubin 0.9 AST 21 ALT 11 Alkaline Phosphatase 76 Total Protein 5.6 L Albumin 2.9 L Digoxin Cancelled
[2023-07-16] MEDS: INSULIN ASPART 100 UNIT/ML SUBCUT ×2 (12:01→17:45)
[2023-07-16 12:03] LABS: HCO3 VBG 21 mmol/L (21-28); PCO2 VBG 20 mmHG (40-50)
[2023-07-16 12:07] LABS: pH VBG 7.626 (7.32-7.43)
--- NOTE | 2023-07-16 14:09 | PC.SOCIAL ---
Addendum entered by ART Yarbrough 07/16/23 14:25: Secure e-mailed updated progress note, nursing notes, and med list to Zayra at [facility] as requested. Provided update on discharge and hospice also. Original Note: Received a phone call from pt's son with hospice related questions. Pt's son will discuss questions with Nellie Macias at [facility]. Pt's son called back informing that the questions were answered and they would like to proceed with hospice. Received a phone call from Nellie Macias at [facility] ([phone]). Provided update on discharge date/time. Nellie will need information on what equipment should be ordered. Phone call to pt's son and pt's has a hospital bed that the family rents, so one is not needed. Per Nursing, pt will discharge on one liter of oxygen. Nursing will set non-emergency ambulance. Phone call to Nellie Macias to provide update, hospice will order oxygen. Social work will follow up as needed.
--- NOTE | 2023-07-16 15:24 | PC.NURSE ---
Addendum entered by Manda Sumner RN 07/16/23 15:36: Stock Fitter training Lety BERNARD, verbal report given at 1100. Pt in her care. Original Note: Nursing Care Hours: [id number] Pt this shift calm and cooperative. VSS. Oriented to self. C/o pain to back of head and to bilat toes. Bruise noted to dorsal side R foot, all toes general clerk in color than rest of LE. CMS intact. Per son, this is WNL for pt. Pain treated per eMAR. Pt also c/o nausea. Cool wash cloth and antiemetic given. Valenzuela patent, draining clear destiny urine. RT titrated pt from high flow to NC, pt tolerating well. Ax2 pivot transfer to BSC x2 for BM.
--- NOTE | 2023-07-16 15:28 | PC.SOCIAL ---
Discharge planning: Received call from [facility] confirming they are planning to visit pt at [facility] tomorrow at 1:00. They have already communicated this to staff at the facility and family.
[2023-07-16] MEDS: MORPHINE 10 MG/0.5 ML ORAL SOLN PO ×2 (18:58→19:05)
[2023-07-16] MEDS: LORazepam 1 MG TABLET PO (19:12)
--- NOTE | 2023-07-16 21:58 | PC.NURSE ---
Patient very drowsy during the shift. Periods of alert, but mostly asleep. PICC removed per orders today. IV antibiotics stopped. Patient plans on discharging tomorrow with hospice. Lower blood pressures noted throughout the day. Patient was able to get up to commode with axRitu pivot. Around 1900 patient had another episode of chest pain and SOB. Damian palor and unsettled appearance. MD notified and came to beside. Oral morphine and ativan given. Oxygen increased to 6L. Patient HR was down in the 30's but O2 sat >90%. Patient able to get comfortable after medications administered. All other medications held for the night. Nursing to continue to monitor.
--- NOTE | 2023-07-16 22:02 | W.PM.CROSSCO ---
Subjective Subjective Date Seen: 07/16/23 Interval history: Paulette complained of chest pain this evening; she also was noted to be anxious and tried to get out of bed. Repeat EKG showed some changes in the anterior leads, given patient's goals of care and symptoms, we treated with morphine and Ativan. We then covered her with a warm blanket and she remained comfortable. Confirmed with son that comfort focused measures are goal at this time. After incident, patient somnolent and not taking p.o. medications. Evening meds held, morphine and Ativan available for comfort.
[2023-07-17 02:45] VITALS: BP 107/55; PULSE 51; RESP 18; TEMP 36.1; O2SAT 97
[2023-07-17] MEDS: MORPHINE 10 MG/0.5 ML ORAL SOLN PO (06:46)
--- NOTE | 2023-07-17 06:52 | PC.NURSE ---
Pt alert and oriented to self only.?Afebrile. Pt reported everything hurts when asked if in pain, pain managed with PRN medication. Pt?s solis catheter is patent and draining.?Pt was turned and repositioned throughout night. Pt slept throughout most of night. Night uneventful.??
[2023-07-17 07:00] VITALS: BP 121/82; PULSE 43; PULSE 53; RESP 18; TEMP 36.1; O2SAT 96
[2023-07-17 07:25] LABS: Hematocrit 35.2 % (33.0-51.0); Hemoglobin* 11.6 gm/dL (12.0-16.0); Mean Corpuscular HGB Conc 33 gm/dL (32-36); Mean Corpuscular Hemoglobin 33 pg (26-34); Mean Corpuscular Volume 99 fL (80-100); Platelet Count* 196 K/uL (140-440); Red Blood Count 3.55 m/uL (4.00-5.20); White Blood Count* 5.54 K/uL (4.50-11.00)
[2023-07-17 07:29] LABS: Slide Review Reflex No
[2023-07-17 07:46] LABS: Albumin* 3.1 g/dL (3.3-5.0); Chloride* 105 mmol/L (96-114); Sodium* 136 mmol/L (135-149)
[2023-07-17 07:47] LABS: Potassium* 4.2 mmol/L (3.6-5.1)
[2023-07-17 07:49] LABS: Alanine Aminotransferase* 12 U/L (4-35); Alkaline Phosphatase* 88 U/L (40-150); Anion Gap 4 mEq/L (7-15); Aspartate Amino Transferase* 19 U/L (12-35); Bilirubin Total* 0.5 mg/dL (0.1-1.5); Blood Urea Nitrogen* 15 mg/dL (7-30); Calcium* 8.8 mg/dL (8.4-10.6); Carbon Dioxide* 27 mmol/L (20-32); Est. Creatinine Clearance* 35.52; Estimated Glomerular Filt Rate 55 ml/min; Glucose* 199 mg/dL (60-115)
[2023-07-17 07:50] LABS: Magnesium* 2.1 mg/dL (1.5-2.6)
[2023-07-17] MEDS: FUROSEMIDE 40 MG TABLET PO (07:57)
[2023-07-17] MEDS: INSULIN ASPART 100 UNIT/ML SUBCUT (08:38)
[2023-07-17] MEDS: ATORVASTATIN CALCIUM 40 MG TABLET 80 MG PO (08:40)
[2023-07-17] MEDS: DONEPEZIL 10 MG TABLET PO (08:41)
[2023-07-17] MEDS: CITALOPRAM HYDROBROMIDE 20 MG TABLET PO (08:41)
[2023-07-17 08:48] VITALS: PULSE 53
[2023-07-17] MEDS: DIGOXIN 125 MCG TABLET PO (08:48)
--- NOTE | 2023-07-17 10:26 | PC.NURSE ---
Discharge: patient discharged to [facility] via non emergent transport accompanied by son/POA at 1000. Discharge instructions signed by son. Patient sleepy throughout shift, but easily awakens when called by name. Patient denies pain, states she is comfortable. Patient had a few bites of breakfast and then wanted to go back to sleep. Son at bedside throughout shift. Discharge paperwork sent with EMS to [facility].
--- NOTE | 2023-07-17 15:44 | P.DS_ITS ---
DS: Providers Provider Date Seen: 07/17/23 Date of admission: 07/10/23 08:16 Primary care physician: Yesy Hicks MD Admitting Clinician: Brian Theodore MD Consults: 07/12/23 18:41 Consult to Occupational Therapy [CONS] Routine Comment: Reason(s) for OT Consult:: Evaluate and Treat Any Restrictions?:: No Restrictions Attending Physician on discharge: Eddie Osuna MD Date of Discharge: 07/17/23 DS: Diagnosis Discharge Diagnosis (1) Non-STEMI (non-ST elevated myocardial infarction): Status: Acute Problem details: Patient presented to the ER after an appointment at her eye doctor where her BP was noted to be low. In the car on the way home, she developed chest pain and came to the ER. In the ER, troponin was positive. EKG ultimately showed ischemic changes, but no ST-segment elevation. Patient's goals are to return home to assisted living with her and she is DNR/DNI. Her chest pain initially resolved. Medical management was recommended in concert with discussions with cardiology by both ER and hospitalists. EKG does not continue to show progressive changes. Echo now showing significantly decreased EF at 26%. Unfortunately, patient continues to experience intermittent episodes of chest discomfort with activity. Her low BP precludes use of nitrates for symptom management. [facility] consult by phone again 07/11, Dr. Walker [facility] consult by phone again 07/10, Dr. Silva. we discussed ongoing conservative care of her ACS - CHF - NSTEMI. in 2008 she had totally clean arteries. the global hypokinesis we see on current echo could be all afib/chf disease (i.e. not exclusively ischemic insult) thus: -Completed heparin x 24hrs (48 total), stopped DAPT 07/12 with heparin. resumed eliquis only, no asprin. -rate control and myocardial support with digoxin and lose dose coreg (if BP allows) -Continue respiratory support with oxygen -Patient likely to discharge back to [facility] on 07/17 with hospice enrollment (2) Acute coronary syndrome: Status: Acute Problem details: as described above. (3) Cardiogenic shock: Status: Acute Problem details: Patient has had borderline BP during her stay which has limited some interventions. BP has improved, but still soft and precluding aggressive diuresis here. Echo this admission shows EF 26% -balance fluid overload with poor cardiac output/reserve -manage end organ dysfunction (currently pulmonary with resp compromise) -d/w with cardiology and given advanced age, health care directives, and lack of ST elevation EKG changes - medically manage is appropriate. -BP has not been able to tolerate diuresis here and patient and family declined transfer to tertiary facility for higher level of care. -Likely to discharge with hospice, will benefit from ongoing HR and fluid management for comfort (4) Acute hypoxemic respiratory failure: Status: Acute Problem details: Multiple potential causes including large left pleural effusion, lung cancer with involvement of left pulmonary artery and atelectasis, heart failure, infection, possible sleep apnea. 07/14: CT reviewed by . After discussion with family, will plan to proceed with thoracentesis today. Goal to improve breathing. Leonel discussion with patient and daughters that will still need to consider next step in course of care, including comfort measures. CT also shows tracheomalacia. Dr. Scott suggested bronchodilators, further diuresis, CPAP/BiPAP. Discussed with RT. Unsure that bronchodilators would be effective in her case. CPAP/BiPAP would need to be continuous. Discussed this with family and patient and currently not sure that this would be a quality measure for her. Patient is currently on Lasix once daily, unable to increase to more aggressive diuresis given soft pressures. Reviewed this again with family. 07/15/23: Not much progress with weaning high flow O2 despite thoracentesis for >1L transudative effusion 07/16/23: Now weaned to oxymask. With new diagnosis of tracheomalacia, will check VBG. If she is retaining CO2, she may benefit from intermittent BIPAP for symptom management while on hospice (5) Infiltrate noted on imaging study: Status: Acute Problem details: CXR on 07/10 showed possible infiltrates - CXR 07/11 did not but there is a long- standing pleural effusion that is likely malignant and not infected but with so little reserve we will cover with abx for a short period of time. -No WBC, no cough, no fever. CRP is trending up. Procalcitonin reassuring. 07/14: Consolidation, pneumonia and or obstructing lesion cannot be excluded. 07/16: Patient had 6 days of antibiotics, will discontinue with no clear evidence for PNA (6) Diabetes mellitus: Status: Acute Problem details: Continue home insulin and sliding scale. (7) Diarrhea: Status: Acute Problem details: Likely related to IV antibiotics. C diff negative Imodium as needed for now Skin cares, barriers to prevent breakdown (8) Hypokalemia: Status: Acute Problem details: Has been on potassium for replacement once daily with occasional bumps to twice daily. Now increased potassium replacement to 40 mEq b.i.d. and continue to monitor (9) Tracheomalacia: Status: Acute Problem details: Finding from CT 07/14. Cares as discussed with Dr. Scott and RT above. Patient unlikely to be a good candidate for stenting. -May benefit from intermittent BIPAP if she proves to be a CO2 retainer (10) Large pleural effusion: Status: Acute Problem details: This had not previously been evaluated, but has been present prior to this admission. With left sided lung cancer thought to likely have malignant contribution, but could also be heart failure with her generalized edema. Underwent thoracentesis on 07/14/23 for >1L transudative fluid making CHF more likely major contributor. Unfortunately, not much improvement in O2 needs after thoracentesis -BP was unable to tolerate lasix drip. -Continue oral lasix (11) Chronic anticoagulation: Status: Acute Problem details: Chronically on apixaban for atrial fib -See above (12) Stage 3 chronic kidney disease: Status: Acute Problem details: Renal function stable with diuretic (13) Dementia: Status: Acute Problem details: Moderate (14) Atrial fibrillation: Status: Acute Problem details: Chronic. Rates have generally been well controlled here. She was loaded with digoxin due to hypotension. Given initial concern for ACS, apixaban was held for heparin drip, Brilinta and aspirin. DAPT stopped 07/11 and she completed 48H on heparin drip. Apixaban resumed. -on coreg as bp allows, but may favor more aggressive diuresis if BP allows - as of 07/13, unable to proceed with further aggressive diuresis, daughter aware -Goal is for rate less than 100. -Apixaban held for thora. Now resumed. Will continue, but hospice may elect to discontinue (15) Non-small cell lung cancer: Status: Acute Problem details: Diagnosed August 2021. Left upper lobe. Stage I A to. Favor adenocarcinoma. Status post radio therapy September of 2021. Recurrence of cancer in the left hilum around the left pulmonary artery in March 2022. Repeat radiation in April to May 2022 now on immunotherapy with capmatinib DS: Summary Hospital Course Hospital Course: For details of the patient's hospital stay please see above problem oriented notes. Status at Discharge Functional status at discharge: bed bound Overall status at discharge: patient is not back to baseline Time Spent with Patient Time attestation: Total time spent providing and/or coordinating discharge services: Time spent: Greater than 30 minutes Exam Narrative: Exam Narrative: General: Resting comfortably. HEENT: NCAT, pale CV: Heart tones distant Resp: Expiratory low pitched wheeze (upper airway), diminished lung sounds Extremities: Feet are warm, 1+ bilateral lower extremity edema Const: Vital Signs, click to edit/add: Vital Signs - 24 hr 07/16/23 19:00 07/17/23 02:45 07/17/23 07:00 Temperature 96.9 F L Pulse Rate 43 L Pulse Rate [Left P ulse Oximeter] 58 L 51 L Respiratory Rate 18 Blood Pressure [Le ft Arm] 107/55 L Pulse Oximetry 96 97 Oxygen Delivery Me thod Nasal Cannula Nasal Cannula Oxygen Flow Rate 6 3 07/17/23 07:00 07/17/23 07:00 07/17/23 07:00 Temperature 96.9 F L Pulse Rate Pulse Rate [Left P ulse Oximeter] 43 L 53 L Respiratory Rate 18 18 18 Blood Pressure [Le ft Arm] 121/82 Pulse Oximetry 96 96 Oxygen Delivery Me thod Nasal Cannula Nasal Cannula Oxygen Flow Rate 07/17/23 08:48 Temperature Pulse Rate 53 L Pulse Rate [Left P ulse Oximeter] Respiratory Rate Blood Pressure [Le ft Arm] Pulse Oximetry Oxygen Delivery Me thod Oxygen Flow Rate DS: Data Data Completed and Pending Labs on day of discharge: Labs from last 24 hours 07/17/23 07/14/23 06:50 15:11 WBC 5.54 RBC 3.55 L Hgb 11.6 L Hct 35.2 MCV 99 MCH 33 MCHC 33 Plt Count 196 Sodium 136 Potassium 4.2 Chloride 105 Carbon Dioxide 27 Anion Gap 4 L BUN 15 Creatinine 1.0 Estimated Creat Clear 35.52 Estimated GFR 55 Glucose 199 H Calcium 8.8 Magnesium 2.1 Total Bilirubin 0.5 AST 19 ALT 12 Alkaline Phosphatase 88 Total Protein 6.0 Albumin 3.1 L Cytology Interpretat See Scanned Report Preliminary micro results at discharge 07/14/23 15:11 Body Fluid Culture - Preliminary Pleural Fluid NO GROWTH AFTER [address] Chest/Ab/Pelvis: Attestation: I have reviewed the pertinent imaging results. Radiologist's impression: 07/14/2023 1. Moderate left and small right pleural effusions of unclear etiology. 2. The posterior apical left upper lobe appears to be more consolidated than collapsed. Evidence of prior granulomatous disease. Pneumonia and/or obstructing lesion is not excluded. Contrast-enhanced CT chest would likely be helpful in clarifying. Otherwise, attention on follow-up is recommended. 3. Distended gallbladder without secondary noncontrast CT findings of cholecystitis. 4. 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 Discharge Plan Discharge Disposition: [facility] Date of Admission: 07/10/23 08:16 Attending Provider on Discharge: Eddie Osuna Primary Care Provider: Yesy Hicks Condition: Guarded Anticipated Discharge Date/Time: 07/17/23 09:30 Discharge Medications: New latanoprost 0.005 % Drops 1 drp ophthalmic (eye-left) HS 30 Days Qty: 2.5 0RF albuterol sulfate 2.5 mg /3 mL (0.083 %) Solution For Nebulization 2.5 mg NEB Q4H PRN30 Days Qty: 90 1RF furosemide 40 mg Tablet 40 mg PO DAILY@0800 30 Days Qty: 30 0RF atorvastatin 40 mg Tablet 80 mg PO DAILY 30 Days Qty: 30 0RF loperamide 2 mg Capsule 2 mg PO QID PRN (Reason: Diarrhea) 30 Days Qty: 30 0RF sennosides-docusate sodium [Stool Softener-Laxative] 8.6-50 mg Tablet 1 tab PO DAILY PRN30 Days Qty: 30 0RF digoxin 125 mcg (0.125 mg) Tablet 125 mcg PO DAILY 30 Days Qty: 30 0RF lorazepam 1 mg Tablet 1 mg PO Q1H PRN30 Days Qty: 30 0RF ondansetron 4 mg Tablet,Disintegrating 4 mg PO Q6H PRN30 Days Qty: 30 0RF carboxymethylcellulose sodium [Refresh Plus] 0.5 % Dropperette 1 drp ophthalmic (eye) BID PRN (Reason: Ocular lubricant) 30 Days Qty: 30 0RF carboxymethylcellulose sodium [Refresh Plus] 0.5 % Dropperette 1 drp ophthalmic (eye-left) QID PRN30 Days Qty: 30 0RF morphine concentrate 10 mg/0.5 mL Syringe 5 mg PO Q1H PRN30 Days Qty: 30 0RF Continued donepezil 10 mg tablet 10 mg PO DAILY citalopram 20 mg tablet 20 mg PO DAILY Eliquis 2.5 mg tablet 2.5 mg PO BID Glyxambi 25-5 mg tablet 1 tab PO DAILY insulin glargine [Lantus Solostar U-100 Insulin] 100 unit/mL (3 mL) insulin pen 18 unit subcut DAILY quetiapine 25 mg tablet 12.5 mg PO HS omeprazole 20 mg capsule,delayed release(DR/EC) 20 mg PO DAILY nystatin [Nystop] 100,000 unit/gram powder 1 applic topical BID PRN potassium chloride 20 mEq tablet extended release 20 meq PO DAILY Tabrecta 200 mg tablet 400 mg PO BID simethicone [Gas Relief (simethicone)] 80 mg tablet,chewable 80 mg PO QID PRN prochlorperazine maleate 5 mg tablet 5 mg PO Q6H PRN Discontinued amlodipine 5 mg tablet 5 mg PO DAILY glipizide 5 mg tablet 5 mg PO BID latanoprost 0.005 % drops 1 drp ophthalmic (eye) HS Rx Instructions: LEFT EYE simvastatin 20 mg tablet 20 mg PO HS triamterene-hydrochlorothiazid 37.5-25 mg tablet 0.5 tab PO DAILY acetaminophen 500 mg tablet 500 mg PO TID PRN albuterol sulfate 90 mcg/actuation HFA aerosol inhaler 2 puff inhalation Q4H PRN docusate sodium 100 mg capsule 100 mg PO DAILY PRN cyanocobalamin (vitamin B-12) 100 mcg tablet 100 mcg PO DAILY cholecalciferol (vitamin D3) 10 mcg (400 unit) capsule 10 mcg PO DAILY zinc sulfate 50 mg zinc (220 mg) capsule 50 mg PO DAILY ondansetron 8 mg tablet,disintegrating 8 mg PO BID calcium carbonate [Antacid (calcium carbonate)] 200 mg calcium (500 mg) t ablet,chewable 400 mg PO QID PRN Discharge Orders: Discharge Order (Routine); Ordered 07/17/23 Ordered By: Eddie Osuna Activity Level: Activity as Tolerated Discharge Diet: Regular Follow Up Appointments: [facility] [Outside] (Patient being discharged to [facility].) Provider,Not a Local [Referring] - Yesy Hicks MD [Primary Care Provider] - Forms: Chatterous Info Instructions Admit to: Assisted Living Discharge Potential: Poor Length of Stay: >90 days Can use facility standing orders?: Yes Code Status: DNR/DNI TEDs: Bilateral Knee Rehab Potential: Poor Oxygen Delivery Method: Nasal Cannula Oxygen Flow Rate: 1-4 LPM Urinary Catheter: Yes Valenzuela Catheter [place] [facility] Size: 16 Hospice Evaluate and Admit: Hospice referral, primary hospice diagnosis coronary artery disease with angina, ischemic cardiomyopathy, systolic heart failure Orders are good >30 days: Yes Signature: Eddie Osuna
== END 2023-07-17 10:00 | DRG 280 ==
LOC: ED 18:03 → MEDSURG 18:23
PROVIDERS: Family Medicine; Physician Assistant; Surgery; Admitting Provider Family Medicine; Emergency Provider Family Medicine; PCP Family Medicine; Visit Provider Family Medicine
DX: I21.4 Non-ST elevation (NSTEMI) myocardial infarction (principal); J96.01 Acute respiratory failure with hypoxia; R57.0 Cardiogenic shock; J91.8 Pleural effusion in other conditions classified elsewhere; I13.0 Hypertensive heart and chronic kidney disease with heart failure and stage 1 through stage 4 chronic kidney disease, or unspecified chronic kidney disease; I50.20 Unspecified systolic (congestive) heart failure; C34.12 Malignant neoplasm of upper lobe, left bronchus or lung; I24.9 Acute ischemic heart disease, unspecified; I48.91 Unspecified atrial fibrillation; F03.90 Unspecified dementia, unspecified severity, without behavioral disturbance, psychotic disturbance, mood disturbance, and anxiety; E11.22 Type 2 diabetes mellitus with diabetic chronic kidney disease; N18.30 Chronic kidney disease, stage 3 unspecified; E78.5 Hyperlipidemia, unspecified; Z79.01 Long term (current) use of anticoagulants; E66.9 Obesity, unspecified; Z68.33 Body mass index [BMI] 33.0-33.9, adult; R19.7 Diarrhea, unspecified; E87.6 Hypokalemia; J39.8 Other specified diseases of upper respiratory tract; R60.9 Edema, unspecified; F32.A Depression, unspecified; Z86.73 Personal history of transient ischemic attack (TIA), and cerebral infarction without residual deficits; H90.5 Unspecified sensorineural hearing loss; M45.9 Ankylosing spondylitis of unspecified sites in spine
CPT/HCPCS: 32555; 36415; 36573; 36589; 36600; 51701; 51798; 71045; 71250; 74176; 76705; 80048; 80053; 80162; 82040; 82042; 82150; 82330; 82465; 82803; 82945; 82962; 83605; 83615; 83690; 83735; 83986; 84145; 84155; 84157; 84311; 84439; 84443; 84484; 85025; 85027; 85610; 85730; 86140; 87070; 87081; 87205; 87449; 87493; 87631; 87899; 88112; 88305; 89051; 93005; 93306; 94640; 94761; 97166; 99285; 99291; G0378; A9270; C1751; C9113; J0613; J1160; J1644; J1940; J2270; J2405; J2543; J3475; J3480; J7030; J7050

== ENCOUNTER 2023-07-17 09:49 | Outpatient (CLI) | payer MEDICARE, SELFPAY | END 2023-07-17 09:50 | disposition home or self-care (01) | LOC: AMB 07-19 09:49 | PROVIDERS: PCP Family Medicine; Visit Provider Emergency Medicine Emergency Medical Services | DX: I25.10 Atherosclerotic heart disease of native coronary artery without angina pectoris (principal); I25.5 Ischemic cardiomyopathy; Z74.01 Bed confinement status | CPT/HCPCS: A0425; A0428 ==